=== PATIENT | male | born 1950 | race Caucasian/White ===

== ENCOUNTER 2018-02-18 20:16 | Inpatient (IN) | payer MEDICARE, OTHER ==
[~2018-02-18] VITALS: Ht 175.3 cm; Wt 82.2 kg
[~2018-02-18 20:16] MED LIST: 0.9 % SODIUM CHLORIDE 10 ML VIAL ONE; etomidate 2mg/ml inj. ONE
[2018-02-18] MEDS ORDERED: albuterol 2.5 mg/0.5ml nebule NEB ONE (21:00)
[2018-02-18] MEDS ORDERED: aspirin 81mg tab.chew PO ONE (21:05)
[2018-02-18] MEDS ORDERED: methylPREDNISolone sod succ 125mg/2ml vial IV ONE (21:05)
[2018-02-18] MEDS ORDERED: normal saline 1000ML IV soln IV ONE (21:05)
[2018-02-18] MEDS ORDERED: CefTRIAXone 2gm/D5W 50ml 50 ML IV ONE (21:05)
[2018-02-18] MEDS ORDERED: vancomycin/NS 1 GM ADD-VANTAGE 250 ML IV ONE (21:05)
[2018-02-18] MEDS ORDERED: albuterol 2.5 MG/3 ML nebule NEB ONE (21:10)
[2018-02-18 21:11] LABS: BASOPHILS % (AUTO) 0 % (0-1); EOSINOPHILS % (AUTO) 0 % (0-6); HEMATOCRIT 40.9 % (42.0-52.0); HEMOGLOBIN 13.5 g/dl (14.0-17.9); LYMPHOCYTES # (AUTO) 0.6 X10'3 (1.1-4.8); LYMPHOCYTES % (AUTO) 2.2 % (21-51); MEAN CORPUSCULAR VOLUME 84.9 FL (78-98); MEAN PLATELET VOLUME 8.5 FL (7.4-10.4); MONOCYTES # (AUTO) 1.8 X10'3 (0-0.9); MONOCYTES % (AUTO) 6.3 % (2-12); NEUTROPHILS # (AUTO) 26.3 X10'3 (1.8-7.7); NEUTROPHILS % (AUTO) 91.5 % (42-75); PLATELET COUNT 296 X10'3 (140-440); RED BLOOD COUNT 4.82 X10'6 (4.70-6.10); RED CELL DISTRIBUTION WIDTH 14.9 % (11.5-14.5)
[2018-02-18 21:16] LABS: WHITE BLOOD COUNT 28.7 X10'3 (4.5-11.0)
[2018-02-18 21:25] LABS: ABG BASE EXCESS -6.6 mmol/L (-2.0-3.0); ABG HCO3 17.5 mmol/L (22.0-26.0); ABG OXYGEN SATURATION 92.7 % (95-98); ABG PCO2 (T) 31.3 mmHg (35.0-48.0); ABG PH (T) 7.367 (7.350-7.450); ALLEN'S TEST Positive; FLOW 4 L/min; FO2Hb 91.8 % (94-100); PATIENT TEMPERATURE 37.5; TOTAL HEMOGLOBIN 13.2 G/dl (14.0-18.0)
[2018-02-18 21:34] LABS: PLATELET ESTIMATE NORMAL; TOTAL CELLS COUNTED 100
[2018-02-18 21:43] LABS: ALANINE AMINOTRANSFERASE 19 U/L (12-78); ALBUMIN 3.5 G/DL (3.4-5.0); ALBUMIN/GLOBULIN RATIO 0.8 (1.1-1.5); ALKALINE PHOSPHATASE 161 IU/L (46-116); ANION GAP 18 (8-16); ASPARTATE AMINO TRANSFERASE 17 U/L (10-37); BILIRUBIN,TOTAL 0.6 MG/DL (0.1-1.0); BLOOD UREA NITROGEN 16 MG/DL (7-18); BUN/CREATININE RATIO 17.2 (5.4-32.0); CALCIUM 9.2 MG/DL (8.5-10.1); CHLORIDE 103 MMOL/L (99-107); CREATININE 0.93 MG/DL (0.60-1.10); GLUCOSE 170 MG/DL (70-104); POTASSIUM 3.5 MMOL/L (3.5-5.1); SODIUM 138 MMOL/L (135-145); TOTAL CARBON DIOXIDE 17.1 MMOL/L (24-32); TOTAL PROTEIN 7.9 G/DL (6.4-8.2); eGFR 81 ML/MIN
[2018-02-18 21:44] LABS: MAGNESIUM 1.6 MG/DL (1.5-2.4); TROPONIN I < 0.04 NG/ML (0.0-0.05)
[2018-02-18 21:45] LABS: INR 1.1 INR; PARTIAL THROMBOPLASTIN TIME 39 SECONDS (22-32); PROTHROMBIN TIME 10.9 SECONDS (9.0-12.0)
--- NOTE | 2018-02-18 22:08 | NUR ---
PT NOT TOLERATING CPAP/BIPAP, UNABLE TO TOLERATE MASK PLACEMENT.
[2018-02-18] MEDS ORDERED: LISI10TA4 PO (22:13)
[2018-02-18] MEDS ORDERED: HYDR-4383 PO (22:13)
[2018-02-18] MEDS ORDERED: OXYB5TAB11 PO (22:13)
[2018-02-18] MEDS ORDERED: DIAZ5TAB4 PO (22:13)
[2018-02-18] MEDS ORDERED: PHEN37.54 PO (22:13)
[2018-02-18] MEDS ORDERED: ROSU20TA PO (22:13)
[2018-02-18] MEDS ORDERED: METO-539 PO (22:13)
--- NOTE | 2018-02-18 22:14 | NUR ---
ATTEMPTED TO COMPLETE MEDICATION REC, PER FAMILY MEDICATIONS AT HOME UNABLE TO GET THEM THANG MED REC COMPLETED USING CELL PHONE PHOTOS. PLEASE CONFIRM DOSAGE AND STRENGTH BEFORE USING.
[2018-02-18] MEDS ORDERED: LORazepam 2 mg/ml vial IV ONE (22:15)
[2018-02-18] MEDS ORDERED: LORazepam 2 mg/ml vial IV PRN (22:20)
[2018-02-18 22:34] LABS: CLARITY,URINE SLIGHTLY CLOUDY (Clear); COLOR,URINE YELLOW (Yellow); GLUCOSE, URINE NEGATIVE (Neg); KETONES,URINE 15 mg/dl (Neg); LEUKOCYTE ESTERASE ,URINE MODERATE (Neg); NITRITES, URINE NEGATIVE (Neg); OCCULT BLOOD,URINE LARGE (Neg); PH,URINE 6.5 (4.8-8.0); PROTEIN,URINE TRACE mg/dl (Neg)
[2018-02-18 22:39] LABS: UA COLLECTION TYPE VOIDED
[2018-02-18 22:44] LABS: BACTERIA,URINE 1+ /HPF (Neg); MUCUS STRANDS FEW /LPF (Neg); RBC,URINE 50-100 /HPF (0-2); SQUAMOUS EPITHELIAL CELL,UR FEW /LPF (FEW); WBC,URINE 20-30 /HPF (0-4)
[2018-02-18] MEDS ORDERED: etomidate 2mg/ml inj. IV ONE (22:45)
[2018-02-18] MEDS ORDERED: succinylcholine 20mg/ml inj IV ONE (22:45)
[2018-02-18] MEDS ORDERED: VECuronium br 10mg inj. IV ONE ×2 (22:45)
[2018-02-18] MEDS ORDERED: midazolam 100mg in NS 100ml 100 ML IV ONE (22:45)
[2018-02-18] MEDS ORDERED: ondansetron/PF 4mg/2ml inj IV PRN (23:05)
[2018-02-18] MEDS ORDERED: morphine 4 MG/ML inj SYRINge IV PRN ×2 (23:05)
[2018-02-18] MEDS ORDERED: acetaminophen 325mg tablet PO PRN (23:05)
[2018-02-18] MEDS: K, MAG and/or Phos replacement - Verify level? MC SCH (23:05)
[2018-02-18] MEDS ORDERED: potassium Cl 20 mEq SR tablet PO PRN ×2 (23:05)
[2018-02-18] MEDS ORDERED: potassium Cl 40MEQ/250ML bag 250 ML IV PRN (23:05)
[2018-02-18] MEDS ORDERED: ipratropium/albuterol 3ml nebule NEB PRN (23:05)
[2018-02-18] MEDS ORDERED: potassium Cl 40MEQ/250ML bag 250 ML IV SCH (23:05)
[2018-02-18] MEDS ORDERED: metoprolol tartrate 1mg/ml inj IV ONE (23:05)
[2018-02-19] VITALS (24 sets, daily range): BP systolic 52–131; BP diastolic 28–72
[2018-02-19 00:11] LABS: ABG BASE EXCESS -12.1 mmol/L (-2.0-3.0); ABG HCO3 19.4 mmol/L (22.0-26.0); ABG OXYGEN SATURATION 93.5 % (95-98); ABG PCO2 (T) 73.8 mmHg (35.0-48.0); ABG PH (T) 7.042 (7.350-7.450); ALLEN'S TEST Positive; FCOHb 0.6 % (0.5-1.5); FMetHb 0.2 % (0.3-1.12); FO2Hb 92.8 % (94-100); PATIENT TEMPERATURE 37.6; PEEP 5 cm H2O; RESPIRATORY RATE 16 b/min; RESPIRATORY RATE (OBSERVED) 16 b/min; TIDAL VOLUME 500 mL; TOTAL HEMOGLOBIN 13.8 G/dl (14.0-18.0)
--- NOTE | 2018-02-19 00:30 | NUR ---
Patient in room ICU 2043. I have received report from Myles PRADO and had the opportunity to ask questions and assume patient care.
[2018-02-19] MEDS ORDERED: NORepinephrine 8mg/ 250ml NS 250 ML IV ONE (01:01)
[2018-02-19 01:11] LABS: OXYGEN SATURATION (MIXED VEN) 75.3 % (60-80); PO2 MIXED VENOUS (TEMP COR) 49.6 mmHg (35-46)
[2018-02-19] MEDS: NORepinephrine 8mg/ 250ml NS 250 ML IV SCH (01:29)
--- NOTE | 2018-02-19 01:30 | NUR ---
Patient hypotensive with BP systolic of 53/28. New orders received. Will continue to monitor patient.
[2018-02-19] MEDS ORDERED: normal saline 1000ml 1,000 ML IVB ONE (01:36)
[2018-02-19] MEDS ORDERED: hydrocortisone sod succ/PF 100mg/2ml inj. IV ONE (01:40)
[2018-02-19] MEDS: normal saline 1000ml 1,000 ML IV SCH ×3 (01:47→22:02)
[2018-02-19 03:24] LABS: BASOPHILS % (AUTO) 0 % (0-1); EOSINOPHILS % (AUTO) 0 % (0-6); HEMATOCRIT 36.5 % (42.0-52.0); LYMPHOCYTES # (AUTO) 0.5 X10'3 (1.1-4.8); LYMPHOCYTES % (AUTO) 1.3 % (21-51); MEAN CORPUSCULAR HEMOGLOBIN 28.1 PG (27.0-31.0); MEAN CORPUSCULAR HGB CONC 32.8 % (33.0-36.5); MEAN CORPUSCULAR VOLUME 85.5 FL (78-98); MEAN PLATELET VOLUME 8.7 FL (7.4-10.4); MONOCYTES # (AUTO) 1.5 X10'3 (0-0.9); MONOCYTES % (AUTO) 4.3 % (2-12); NEUTROPHILS # (AUTO) 33.7 X10'3 (1.8-7.7); NEUTROPHILS % (AUTO) 94.4 % (42-75); PLATELET COUNT 302 X10'3 (140-440); RED BLOOD COUNT 4.27 X10'6 (4.70-6.10); RED CELL DISTRIBUTION WIDTH 14.9 % (11.5-14.5)
[2018-02-19 03:31] LABS: WHITE BLOOD COUNT 35.7 X10'3 (4.5-11.0)
[2018-02-19 03:41] LABS: ABG BASE EXCESS -9.6 mmol/L (-2.0-3.0); ABG HCO3 17.8 mmol/L (22.0-26.0); ABG OXYGEN SATURATION 98.3 % (95-98); ABG PCO2 (T) 44.3 mmHg (35.0-48.0); ABG PH (T) 7.221 (7.350-7.450); ALLEN'S TEST Positive; FMetHb 0.2 % (0.3-1.12); FO2Hb 98.1 % (94-100); MINUTE VOLUME 15 L/min; PEEP 5 cm H2O; RESPIRATORY RATE 22 b/min; RESPIRATORY RATE (OBSERVED) 28 b/min; TIDAL VOLUME 500 mL; TOTAL HEMOGLOBIN 13.1 G/dl (14.0-18.0)
[2018-02-19 03:44] LABS: ALANINE AMINOTRANSFERASE 14 U/L (12-78); ALBUMIN 2.5 G/DL (3.4-5.0); ALBUMIN/GLOBULIN RATIO 0.7 (1.1-1.5); ALKALINE PHOSPHATASE 119 IU/L (46-116); ANION GAP 15 (8-16); ASPARTATE AMINO TRANSFERASE 17 U/L (10-37); BILIRUBIN,TOTAL 0.6 MG/DL (0.1-1.0); BLOOD UREA NITROGEN 17 MG/DL (7-18); BUN/CREATININE RATIO 16.2 (5.4-32.0); CALCIUM 7.3 MG/DL (8.5-10.1); CHLORIDE 109 MMOL/L (99-107); CREATININE 1.05 MG/DL (0.60-1.10); GLUCOSE 249 MG/DL (70-104); POTASSIUM 3.8 MMOL/L (3.5-5.1); SODIUM 143 MMOL/L (135-145); TOTAL CARBON DIOXIDE 18.9 MMOL/L (24-32); TOTAL PROTEIN 6.2 G/DL (6.4-8.2); eGFR 70 ML/MIN
[2018-02-19 03:45] LABS: MAGNESIUM 1.4 MG/DL (1.5-2.4); PHOSPHORUS 3.7 MG/DL (2.3-4.5)
[2018-02-19] MEDS ORDERED: dextrose 50%-water 50ml dispensing syringe IV PRN (04:00)
[2018-02-19] MEDS ORDERED: insulin Lispro (HumaLOG) vial - multi-dose SQ SCH (04:00)
[2018-02-19 04:20] LABS: PLATELET ESTIMATE NORMAL; TOTAL CELLS COUNTED 100
[2018-02-19] MEDS: vancomycin/NS 1 GM ADD-VANTAGE 250 ML IV SCH ×2 (05:24→17:41)
--- NOTE | 2018-02-19 06:30 | NUR ---
Patient in room ICU 2043. I have received report from Danette Rodney RN and had the opportunity to ask questions and assume patient care.
--- NOTE | 2018-02-19 06:32 | NUR ---
Problems reprioritized. Patient report given, questions answered & plan of care reviewed with Altagracia PRADO.
[2018-02-19] MEDS: K, MAG and/or Phos replacement - Verify level? MC SCH (06:55)
--- NOTE | 2018-02-19 06:58 | NUR ---
Eri contacted ICU, updated regarding amount of levophed at 2mcg. Informed him that Calcium level and magnesium are low on morning labs. One time replacement orders received.
[2018-02-19] MEDS ORDERED: magnesium 4gm in 100ml NS 100 ML IV ONE (07:00)
[2018-02-19] MEDS ORDERED: magnesium 2GM in 50ml NS 50 ML IV ONE (07:00)
[2018-02-19] MEDS ORDERED: calcium chloride 100 MG/1 ML inj IV ONE (07:00)
[2018-02-19] MEDS ORDERED: calcium chloride inj. 1,000 MG in normal saline 100ml IV soln 90 ML IV ONE (07:05)
[2018-02-19] MEDS: pantoprazole 40 MG vial IV SCH (07:56)
[2018-02-19] MEDS: enoxaparin 40mg/0.4ml syringe SUBCUT SCH (07:59)
[2018-02-19] MEDS ORDERED: cefepime 2g/NS 100ml ADVANTAGE 100 ML IV SCH (08:00)
[2018-02-19] MEDS: insulin regular, human vial - multi-dose SQ SCH ×3 (08:05→22:00)
[2018-02-19] MEDS ORDERED: sodium phosphate inj. 30 MMOL in dextrose 5%-water 250 ML IV PRN (11:05)
[2018-02-19] MEDS ORDERED: sodium phosphate inj. 15 MMOL in dextrose 5%-water 150 ML IV PRN (11:05)
[2018-02-19] MEDS ORDERED: magnesium 2GM in 50ml NS 50 ML IV PRN (11:05)
[2018-02-19] MEDS ORDERED: magnesium 4gm in 100ml NS 100 ML IV PRN (11:05)
[2018-02-19] MEDS ORDERED: Neutra Phos packet PO PRN (11:05)
--- NOTE | 2018-02-19 11:43 | NUR ---
TF consult: Pt admitted with PNA, acute resp failure, and sepsis and has been intubated. Recommendations below. Will continue to follow. Recommendations: 1) Continuous TF via OG tube with Vital AF with goal rate of 60 mL/hr to provide: total volume of 1440 mL/day, 1728 kcal, 97 g protein, 1100 water 2) 150 mL water flush q 6 hrs per MD 3) Prealbumin q / 4) Daily wt Addendum: 02/19/18 at [address] Amended: Links added.
[2018-02-19] MEDS: levoFLOXACIN-Levaquin 750MG/D5 150 ML IV SCH (12:38)
[2018-02-19] MEDS: methylnaltrexone br 12mg/0.6ml inj***SubQ only SQ SCH (12:38)
[2018-02-19 13:24] LABS: HEMOGLOBIN A1C 6.8 % (4.5-6.2)
[2018-02-19] MEDS: metoclopramide 5 mg/ml inj IV SCH ×2 (14:04→20:48)
[2018-02-19 15:56] LABS: MAGNESIUM 2.8 MG/DL (1.5-2.4); PHOSPHORUS 1.9 MG/DL (2.3-4.5); POTASSIUM 3.7 MMOL/L (3.5-5.1); PREALBUMIN 13.3 MG/DL (19-36); TROPONIN I 0.24 NG/ML (0.0-0.05)
[2018-02-19] MEDS: midazolam 100mg in NS 100ml 100 ML IV PRN (16:03)
[2018-02-19] MEDS: FENTANYL-0.9 % NACL/PF 100 ML IV PRN (17:27)
[2018-02-19 18:09] LABS: CALCIUM 8.2 MG/DL (8.5-10.1)
--- NOTE | 2018-02-19 18:33 | NUR ---
Problems reprioritized. Patient report given, questions answered & plan of care reviewed with Raudel Bernal RN.
--- NOTE | 2018-02-19 18:37 | NUR ---
Patient in room ICU 2043. I have received report from Altagracia PRADO and had the opportunity to ask questions and assume patient care.
--- NOTE | 2018-02-19 20:00 | NUR ---
levophed weaned off at this time. continue to monitor.
--- NOTE | 2018-02-19 22:00 | NUR ---
tube feed rate increased from 20 up to 40 per protocol. 8 hrs since start time. tolerating well. continue to monitor.
[2018-02-19] MEDS: insulin glargine (Lantus) pen - multi-dose SQ SCH (22:01)
[2018-02-20] VITALS (24 sets, daily range): BP systolic 80–198; BP diastolic 43–98
--- NOTE | 2018-02-20 00:21 | NUR ---
levo restarted at this time. continue to monitor.
[2018-02-20] MEDS: mineral oil/petrolatum ophthal oint EACHEYE SCH ×4 (02:26→19:26)
[2018-02-20] MEDS: metoclopramide 5 mg/ml inj IV SCH ×4 (02:26→20:52)
[2018-02-20] MEDS: insulin regular, human vial - multi-dose SQ SCH ×4 (02:29→20:55)
[2018-02-20 02:40] LABS: BASOPHILS % (AUTO) 0.1 % (0-1); EOSINOPHILS % (AUTO) 0 % (0-6); HEMATOCRIT 29.8 % (42.0-52.0); HEMOGLOBIN 9.9 g/dl (14.0-17.9); LYMPHOCYTES # (AUTO) 0.9 X10'3 (1.1-4.8); LYMPHOCYTES % (AUTO) 4.8 % (21-51); MEAN CORPUSCULAR HGB CONC 33.1 % (33.0-36.5); MEAN CORPUSCULAR VOLUME 84.4 FL (78-98); MEAN PLATELET VOLUME 8.1 FL (7.4-10.4); MONOCYTES % (AUTO) 5.6 % (2-12); NEUTROPHILS # (AUTO) 16.7 X10'3 (1.8-7.7); NEUTROPHILS % (AUTO) 89.5 % (42-75); PLATELET COUNT 207 X10'3 (140-440); RED BLOOD COUNT 3.53 X10'6 (4.70-6.10); RED CELL DISTRIBUTION WIDTH 14.8 % (11.5-14.5); WHITE BLOOD COUNT 18.6 X10'3 (4.5-11.0)
[2018-02-20 02:45] LABS: ABG BASE EXCESS -2.9 mmol/L (-2.0-3.0); ABG HCO3 21.4 mmol/L (22.0-26.0); ABG OXYGEN SATURATION 98.3 % (95-98); ABG PCO2 (T) 35.8 mmHg (35.0-48.0); ABG PH (T) 7.397 (7.350-7.450); ABG PO2 (T) 127.2 mmHg (83-108); ALLEN'S TEST Positive; FCOHb 0.3 % (0.5-1.5); FMetHb 0.3 % (0.3-1.12); FO2Hb 97.7 % (94-100); MINUTE VOLUME 15 L/min; PATIENT TEMPERATURE 37.3; PEEP 5 cm H2O; RESPIRATORY RATE 22 b/min; RESPIRATORY RATE (OBSERVED) 28 b/min; TIDAL VOLUME 500 mL; TOTAL HEMOGLOBIN 10.6 G/dl (14.0-18.0)
[2018-02-20 02:53] LABS: ALANINE AMINOTRANSFERASE 19 U/L (12-78); ALBUMIN 2.2 G/DL (3.4-5.0); ALBUMIN/GLOBULIN RATIO 0.6 (1.1-1.5); ALKALINE PHOSPHATASE 87 IU/L (46-116); ANION GAP 9 (8-16); ASPARTATE AMINO TRANSFERASE 32 U/L (10-37); BILIRUBIN,TOTAL 0.4 MG/DL (0.1-1.0); BLOOD UREA NITROGEN 20 MG/DL (7-18); BUN/CREATININE RATIO 23.8 (5.4-32.0); CALCIUM 8.3 MG/DL (8.5-10.1); CHLORIDE 109 MMOL/L (99-107); CREATININE 0.84 MG/DL (0.60-1.10); GLUCOSE 196 MG/DL (70-104); MAGNESIUM 2.1 MG/DL (1.5-2.4); PHOSPHORUS 1.6 MG/DL (2.3-4.5); POTASSIUM 3.3 MMOL/L (3.5-5.1); SODIUM 142 MMOL/L (135-145); TOTAL CARBON DIOXIDE 24.3 MMOL/L (24-32); TOTAL PROTEIN 5.8 G/DL (6.4-8.2); eGFR > 90 ML/MIN
[2018-02-20] MEDS: vancomycin/NS 1 GM ADD-VANTAGE 250 ML IV SCH ×2 (06:01→19:26)
--- NOTE | 2018-02-20 06:41 | NUR ---
Problems reprioritized. Patient report given, questions answered & plan of care reviewed with Majo PRADO and Rina PRADO.
[2018-02-20] MEDS: K, MAG and/or Phos replacement - Verify level? MC SCH (08:00)
[2018-02-20] MEDS: levoFLOXACIN-Levaquin 750MG/D5 150 ML IV SCH (08:29)
[2018-02-20] MEDS: enoxaparin 40mg/0.4ml syringe SUBCUT SCH (08:29)
[2018-02-20] MEDS: pantoprazole 40 MG vial IV SCH (08:29)
[2018-02-20] MEDS ORDERED: diltiazem 5mg/ml 5ml inj. IV ONE (10:55)
[2018-02-20] MEDS: [UNRECOGNIZED DRUG - OTHER] IV SCH (11:30)
[2018-02-20 12:40] LABS: ABG BASE EXCESS -8.5 mmol/L (-2.0-3.0); ABG HCO3 26.2 mmol/L (22.0-26.0); ABG OXYGEN SATURATION 87.3 % (95-98); ABG PCO2 (T) 117.2 mmHg (35.0-48.0); ABG PH (T) 6.963 (7.350-7.450); FCOHb 0.4 % (0.5-1.5); FMetHb 0.3 % (0.3-1.12); FO2Hb 86.7 % (94-100); PATIENT TEMPERATURE 36.5; TOTAL HEMOGLOBIN 13.1 G/dl (14.0-18.0)
[2018-02-20] MEDS: methylPREDNISolone sod succ 125mg/2ml vial IV SCH ×2 (14:33→20:51)
[2018-02-20] MEDS: normal saline 1000ml 1,000 ML IV SCH (15:33)
[2018-02-20 15:35] LABS: ABG BASE EXCESS -8.9 mmol/L (-2.0-3.0); ABG HCO3 24.2 mmol/L (22.0-26.0); ABG OXYGEN SATURATION 90.4 % (95-98); ABG PCO2 (T) 93.1 mmHg (35.0-48.0); ABG PH (T) 7.024 (7.350-7.450); ABG PO2 (T) 65.7 mmHg (83-108); FCOHb 0.3 % (0.5-1.5); FMetHb 0.1 % (0.3-1.12); PATIENT TEMPERATURE 35.7
[2018-02-20] MEDS: ipratropium/albuterol 3ml nebule NEB SCH ×3 (15:49→23:31)
[2018-02-20] MEDS ORDERED: VANCOMYCIN LEVEL IV ONE (17:30)
--- NOTE | 2018-02-20 18:30 | NUR ---
Patient in room ICU 2043. I have received report from Majo PRADO and had the opportunity to ask questions and assume patient care.
[2018-02-20] MEDS: FENTANYL-0.9 % NACL/PF 100 ML IV PRN (18:36)
[2018-02-20] MEDS: NORepinephrine 8mg/ 250ml NS 250 ML IV SCH (18:36)
[2018-02-20] MEDS: midazolam 100mg in NS 100ml 100 ML IV PRN (18:37)
[2018-02-20 19:21] LABS: ABG OXYGEN SATURATION 96.3 % (95-98); ABG PCO2 (T) 61.9 mmHg (35.0-48.0); ABG PH (T) 7.202 (7.350-7.450); ABG PO2 (T) 77.7 mmHg (83-108); ALLEN'S TEST Positive; FCOHb 0.1 % (0.5-1.5); FMetHb 0.1 % (0.3-1.12); FO2Hb 96.1 % (94-100); MINUTE VOLUME 9 L/min; PATIENT TEMPERATURE 36.1; PEEP 5 cm H2O; RESPIRATORY RATE 16 b/min; RESPIRATORY RATE (OBSERVED) 19 b/min; TIDAL VOLUME 450 mL; TOTAL HEMOGLOBIN 11.9 G/dl (14.0-18.0)
[2018-02-20] MEDS: insulin glargine (Lantus) pen - multi-dose SQ SCH (20:54)
--- NOTE | 2018-02-20 21:13 | NUR ---
OG tube replaced at 2029. February CONTINUOUS IMPROVEMENT MANAGER was present and gave permission to replace and restart TF orders. TF started at 2029. restarted at 30ml/hr - half of goal rate. i will reassess residuals in 4 hrs and advanmce back to goal if residual remains adequate. continue to monitor.
[2018-02-21] VITALS (24 sets, daily range): BP systolic 85–135; BP diastolic 49–71
[2018-02-21] MEDS: methylPREDNISolone sod succ 125mg/2ml vial IV SCH ×4 (01:56→20:32)
[2018-02-21] MEDS: metoclopramide 5 mg/ml inj IV SCH ×4 (01:56→20:32)
[2018-02-21] MEDS: mineral oil/petrolatum ophthal oint EACHEYE SCH ×4 (01:56→20:31)
[2018-02-21] MEDS: insulin regular, human vial - multi-dose SQ SCH ×4 (02:03→22:07)
[2018-02-21 02:52] LABS: BASOPHILS % (AUTO) 0.1 % (0-1); EOSINOPHILS % (AUTO) 0 % (0-6); HEMATOCRIT 32.6 % (42.0-52.0); HEMOGLOBIN 10.9 g/dl (14.0-17.9); LYMPHOCYTES # (AUTO) 0.3 X10'3 (1.1-4.8); LYMPHOCYTES % (AUTO) 1.7 % (21-51); MEAN CORPUSCULAR HEMOGLOBIN 28.8 PG (27.0-31.0); MEAN CORPUSCULAR HGB CONC 33.5 % (33.0-36.5); MEAN PLATELET VOLUME 8.4 FL (7.4-10.4); MONOCYTES # (AUTO) 0.2 X10'3 (0-0.9); MONOCYTES % (AUTO) 1.5 % (2-12); NEUTROPHILS % (AUTO) 96.7 % (42-75); PLATELET COUNT 199 X10'3 (140-440); RED BLOOD COUNT 3.79 X10'6 (4.70-6.10); RED CELL DISTRIBUTION WIDTH 14.3 % (11.5-14.5); WHITE BLOOD COUNT 16.5 X10'3 (4.5-11.0)
[2018-02-21 03:01] LABS: ALANINE AMINOTRANSFERASE 32 U/L (12-78); ALBUMIN 2.4 G/DL (3.4-5.0); ALBUMIN/GLOBULIN RATIO 0.6 (1.1-1.5); ALKALINE PHOSPHATASE 118 IU/L (46-116); ANION GAP 10 (8-16); ASPARTATE AMINO TRANSFERASE 28 U/L (10-37); BILIRUBIN,TOTAL 0.5 MG/DL (0.1-1.0); BLOOD UREA NITROGEN 27 MG/DL (7-18); CALCIUM 8.5 MG/DL (8.5-10.1); CHLORIDE 109 MMOL/L (99-107); CREATININE 1.08 MG/DL (0.60-1.10); GLUCOSE 185 MG/DL (70-104); MAGNESIUM 2.1 MG/DL (1.5-2.4); PHOSPHORUS 3.1 MG/DL (2.3-4.5); POTASSIUM 4.7 MMOL/L (3.5-5.1); SODIUM 143 MMOL/L (135-145); TOTAL CARBON DIOXIDE 23.7 MMOL/L (24-32); TOTAL PROTEIN 6.3 G/DL (6.4-8.2); eGFR 68 ML/MIN
[2018-02-21] MEDS: ipratropium/albuterol 3ml nebule NEB SCH ×6 (03:03→23:00)
[2018-02-21 03:55] LABS: ABG BASE EXCESS -6.3 mmol/L (-2.0-3.0); ABG HCO3 21.8 mmol/L (22.0-26.0); ABG OXYGEN SATURATION 96.1 % (95-98); ABG PCO2 (T) 55.2 mmHg (35.0-48.0); ABG PH (T) 7.214 (7.350-7.450); ABG PO2 (T) 83.6 mmHg (83-108); ALLEN'S TEST Positive; FCOHb 0.2 % (0.5-1.5); FO2Hb 95.9 % (94-100); MINUTE VOLUME 8 L/min; PATIENT TEMPERATURE 36.8; PEEP 5 cm H2O; RESPIRATORY RATE 16 b/min; RESPIRATORY RATE (OBSERVED) 17 b/min; TIDAL VOLUME 450 mL; TOTAL HEMOGLOBIN 11.7 G/dl (14.0-18.0)
[2018-02-21] MEDS: midazolam 100mg in NS 100ml 100 ML IV PRN ×2 (04:31→15:01)
[2018-02-21] MEDS: vancomycin/NS 1 GM ADD-VANTAGE 250 ML IV SCH (05:34)
[2018-02-21] MEDS: normal saline 1000ml 1,000 ML IV SCH ×3 (05:34→23:20)
[2018-02-21] MEDS: FENTANYL-0.9 % NACL/PF 100 ML IV PRN ×2 (05:34→16:43)
--- NOTE | 2018-02-21 06:38 | NUR ---
Problems reprioritized. Patient report given, questions answered & plan of care reviewed with Giovany PRADO.
[2018-02-21] MEDS: K, MAG and/or Phos replacement - Verify level? MC SCH (08:00)
[2018-02-21] MEDS ORDERED: methylnaltrexone br 12mg/0.6ml inj***SubQ only SQ SCH (08:00)
[2018-02-21] MEDS: methylnaltrexone br 12mg/0.6ml inj***SubQ only SQ SCH (08:30)
[2018-02-21] MEDS: pantoprazole 40 MG vial IV SCH (08:30)
[2018-02-21] MEDS: enoxaparin 40mg/0.4ml syringe SUBCUT SCH (08:31)
[2018-02-21] MEDS: levoFLOXACIN-Levaquin 750MG/D5 150 ML IV SCH (08:33)
--- NOTE | 2018-02-21 11:15 | NUR ---
Dr. Means at bedside; updated on patient condition and notified of patient's HR in the 120s; per Dr. Means, no new orders. Family updated at bedside and Dr. Means looking into performing a tracheostomy tomorrow; family agrees. Will continue to monitor.
[2018-02-21] MEDS: [UNRECOGNIZED DRUG - OTHER] IV SCH (12:00)
--- NOTE | 2018-02-21 16:13 | NUR ---
Jacquelyn MYLES notified about med-rec; she reports she will work on it.
[2018-02-21] MEDS: vancomycin inj 1,250 MG in normal saline 250ml IV soln 250 ML IV SCH (16:44)
--- NOTE | 2018-02-21 17:22 | NUR ---
OG tube advanced further into stomach; auscultated for positive placement.
--- NOTE | 2018-02-21 18:28 | NUR ---
Orientee documentation: I have reviewed and agree with all interventions, assessments performed and documented by Adithya PRADO.
--- NOTE | 2018-02-21 18:28 | NUR ---
Problems reprioritized. Patient report given, questions answered & plan of care reviewed with Petr PRADO.
[2018-02-21] MEDS: lactobacillus rhamnosus 10,000 MMU CELLS/CAPSULE PO SCH (20:33)
[2018-02-21] MEDS: insulin glargine (Lantus) pen - multi-dose SQ SCH (21:58)
[2018-02-22] VITALS (24 sets, daily range): BP systolic 91–127; BP diastolic 52–87
[2018-02-22] MEDS: midazolam 100mg in NS 100ml 100 ML IV PRN ×3 (00:46→20:24)
[2018-02-22] MEDS: methylPREDNISolone sod succ 125mg/2ml vial IV SCH ×4 (02:21→19:43)
[2018-02-22] MEDS: mineral oil/petrolatum ophthal oint EACHEYE SCH ×4 (02:21→19:44)
[2018-02-22] MEDS: metoclopramide 5 mg/ml inj IV SCH ×4 (02:21→19:44)
[2018-02-22 02:49] LABS: BASOPHILS % (AUTO) 0.1 % (0-1); EOSINOPHILS % (AUTO) 0.1 % (0-6); HEMATOCRIT 29.2 % (42.0-52.0); HEMOGLOBIN 9.7 g/dl (14.0-17.9); LYMPHOCYTES # (AUTO) 0.3 X10'3 (1.1-4.8); LYMPHOCYTES % (AUTO) 2.2 % (21-51); MEAN CORPUSCULAR HEMOGLOBIN 28.7 PG (27.0-31.0); MEAN CORPUSCULAR HGB CONC 33.3 % (33.0-36.5); MEAN CORPUSCULAR VOLUME 86.1 FL (78-98); MEAN PLATELET VOLUME 8.1 FL (7.4-10.4); MONOCYTES # (AUTO) 0.5 X10'3 (0-0.9); MONOCYTES % (AUTO) 3.5 % (2-12); NEUTROPHILS # (AUTO) 14.4 X10'3 (1.8-7.7); NEUTROPHILS % (AUTO) 94.1 % (42-75); PLATELET COUNT 193 X10'3 (140-440); RED BLOOD COUNT 3.39 X10'6 (4.70-6.10); RED CELL DISTRIBUTION WIDTH 14.2 % (11.5-14.5); WHITE BLOOD COUNT 15.2 X10'3 (4.5-11.0)
[2018-02-22 03:02] LABS: ALANINE AMINOTRANSFERASE 26 U/L (12-78); ALBUMIN 2.1 G/DL (3.4-5.0); ALBUMIN/GLOBULIN RATIO 0.6 (1.1-1.5); ALKALINE PHOSPHATASE 114 IU/L (46-116); ANION GAP 10 (8-16); ASPARTATE AMINO TRANSFERASE 19 U/L (10-37); BILIRUBIN,TOTAL 0.5 MG/DL (0.1-1.0); BLOOD UREA NITROGEN 39 MG/DL (7-18); BUN/CREATININE RATIO 29.5 (5.4-32.0); CALCIUM 8.2 MG/DL (8.5-10.1); CHLORIDE 110 MMOL/L (99-107); CREATININE 1.32 MG/DL (0.60-1.10); GLUCOSE 183 MG/DL (70-104); MAGNESIUM 2.3 MG/DL (1.5-2.4); PHOSPHORUS 2.2 MG/DL (2.3-4.5); POTASSIUM 4.1 MMOL/L (3.5-5.1); SODIUM 143 MMOL/L (135-145); TOTAL CARBON DIOXIDE 23.2 MMOL/L (24-32); TOTAL PROTEIN 5.7 G/DL (6.4-8.2); eGFR 54 ML/MIN
[2018-02-22] MEDS: ipratropium/albuterol 3ml nebule NEB SCH ×6 (03:04→23:10)
[2018-02-22] MEDS: insulin regular, human vial - multi-dose SQ SCH ×3 (03:10→20:06)
[2018-02-22 03:36] LABS: ABG BASE EXCESS -7.1 mmol/L (-2.0-3.0); ABG HCO3 19.9 mmol/L (22.0-26.0); ABG OXYGEN SATURATION 96.4 % (95-98); ABG PCO2 (T) 46.4 mmHg (35.0-48.0); ABG PO2 (T) 90.3 mmHg (83-108); ALLEN'S TEST Positive; FCOHb 0.3 % (0.5-1.5); FMetHb 0.3 % (0.3-1.12); FO2Hb 95.8 % (94-100); MINUTE VOLUME 10 L/min; PATIENT TEMPERATURE 37.2; PEEP 5 cm H2O; RESPIRATORY RATE 20 b/min; RESPIRATORY RATE (OBSERVED) 20 b/min; TIDAL VOLUME 450 mL; TOTAL HEMOGLOBIN 10.9 G/dl (14.0-18.0)
[2018-02-22] MEDS: vancomycin inj 1,250 MG in normal saline 250ml IV soln 250 ML IV SCH ×2 (05:37→17:35)
[2018-02-22] MEDS: FENTANYL-0.9 % NACL/PF 100 ML IV PRN ×2 (06:14→15:55)
--- NOTE | 2018-02-22 06:20 | NUR ---
Patient in room ICU 2043. I have received report from JOHAN Humphreys and had the opportunity to ask questions and assume patient care.
--- NOTE | 2018-02-22 07:15 | NUR ---
Problems reprioritized. Patient report given, questions answered & plan of care reviewed with JOHAN Church.
--- NOTE | 2018-02-22 07:15 | NUR ---
Patient in room ICU 2043. I have received report from JOHAN Pardo and had the opportunity to ask questions and assume patient care.
[2018-02-22] MEDS: levoFLOXACIN-Levaquin 750MG/D5 150 ML IV SCH (07:45)
[2018-02-22] MEDS: enoxaparin 40mg/0.4ml syringe SUBCUT SCH (07:46)
[2018-02-22] MEDS: atorvastatin 10mg tablet PO SCH (07:46)
[2018-02-22] MEDS: pantoprazole 40 MG vial IV SCH (07:46)
[2018-02-22] MEDS: lactobacillus rhamnosus 10,000 MMU CELLS/CAPSULE PO SCH ×2 (07:47→19:45)
[2018-02-22] MEDS: K, MAG and/or Phos replacement - Verify level? MC SCH (08:00)
--- NOTE | 2018-02-22 11:52 | NUR ---
reassessment: Pt intubated tolerating TF at goal residuals <250ml. RD d/w MD to advance goal rate to 70ml/hr w/ Vital AF in order to optimally meet protein needs; MD coronado and RN to adjust goal rate in order. No BM yet on relistor and reglan. Will monitor for additional bowel care needs and feeding tolerance. Recommendations: 1) Continuous TF via OG tube with Vital AF with goal rate of 70 mL/hr to provide: total volume of 1680 mL/day, 2016 kcal, 126 g protein, 1361ml water 2) 150 mL water flush q 6 hrs per MD 3) Prealbumin q / 4) Daily wt 5) routine bowel care Addendum: 02/22/18 at [address] Amended: Links added.
[2018-02-22] MEDS: [UNRECOGNIZED DRUG - OTHER] IV SCH (13:00)
[2018-02-22] MEDS: normal saline 1000ml 1,000 ML IV SCH (16:22)
--- NOTE | 2018-02-22 18:30 | NUR ---
Patient in room ICU 2043. I have received report from JOHAN Childs and had the opportunity to ask questions and assume patient care.
[2018-02-22] MEDS: insulin glargine (Lantus) pen - multi-dose SQ SCH (20:07)
[2018-02-23] VITALS (24 sets, daily range): BP systolic 88–143; BP diastolic 47–67
[2018-02-23] MEDS: NORepinephrine 8mg/ 250ml NS 250 ML IV SCH (01:25)
[2018-02-23] MEDS: methylPREDNISolone sod succ 125mg/2ml vial IV SCH ×4 (01:33→19:57)
[2018-02-23] MEDS: metoclopramide 5 mg/ml inj IV SCH ×4 (01:33→19:57)
[2018-02-23] MEDS: mineral oil/petrolatum ophthal oint EACHEYE SCH ×4 (01:33→19:59)
[2018-02-23] MEDS: FENTANYL-0.9 % NACL/PF 100 ML IV PRN ×3 (01:38→21:48)
--- NOTE | 2018-02-23 02:00 | NUR ---
Pt blood glucose dropped to 95 and the pt is having high residuals, therefore tube feeds have been off occasionally off and decreased per protocol. Held 0200 dose of Insulin for fear of dropping blood glucose further.
[2018-02-23] MEDS: ipratropium/albuterol 3ml nebule NEB SCH ×6 (03:25→23:16)
[2018-02-23 03:36] LABS: ABG BASE EXCESS -1.5 mmol/L (-2.0-3.0); ABG OXYGEN SATURATION 97.6 % (95-98); ABG PCO2 (T) 50.6 mmHg (35.0-48.0); ABG PH (T) 7.312 (7.350-7.450); ABG PO2 (T) 107.5 mmHg (83-108); ALLEN'S TEST Positive; FCOHb 0.3 % (0.5-1.5); FMetHb 0.1 % (0.3-1.12); FO2Hb 97.2 % (94-100); MINUTE VOLUME 10 L/min; PATIENT TEMPERATURE 36.8; PEEP 5 cm H2O; RESPIRATORY RATE 22 b/min; RESPIRATORY RATE (OBSERVED) 22 b/min; TIDAL VOLUME 450 mL; TOTAL HEMOGLOBIN 10.3 G/dl (14.0-18.0)
[2018-02-23 04:01] LABS: ALANINE AMINOTRANSFERASE 31 U/L (12-78); ALBUMIN 2.1 G/DL (3.4-5.0); ALBUMIN/GLOBULIN RATIO 0.6 (1.1-1.5); ALKALINE PHOSPHATASE 99 IU/L (46-116); ANION GAP 7 (8-16); ASPARTATE AMINO TRANSFERASE 23 U/L (10-37); BILIRUBIN,TOTAL 0.4 MG/DL (0.1-1.0); BLOOD UREA NITROGEN 53 MG/DL (7-18); CALCIUM 8.5 MG/DL (8.5-10.1); CHLORIDE 113 MMOL/L (99-107); CREATININE 1.36 MG/DL (0.60-1.10); GLUCOSE 129 MG/DL (70-104); MAGNESIUM 2.4 MG/DL (1.5-2.4); PHOSPHORUS 2.4 MG/DL (2.3-4.5); POTASSIUM 4.2 MMOL/L (3.5-5.1); PREALBUMIN 16.6 MG/DL (19-36); SODIUM 145 MMOL/L (135-145); TOTAL CARBON DIOXIDE 24.7 MMOL/L (24-32); TOTAL PROTEIN 5.4 G/DL (6.4-8.2); eGFR 52 ML/MIN
[2018-02-23 04:04] LABS: BASOPHILS % (AUTO) 0 % (0-1); EOSINOPHILS % (AUTO) 0 % (0-6); HEMATOCRIT 28.1 % (42.0-52.0); HEMOGLOBIN 9.3 g/dl (14.0-17.9); LYMPHOCYTES # (AUTO) 0.3 X10'3 (1.1-4.8); LYMPHOCYTES % (AUTO) 2.3 % (21-51); MEAN CORPUSCULAR HEMOGLOBIN 28.5 PG (27.0-31.0); MEAN CORPUSCULAR HGB CONC 33.2 % (33.0-36.5); MEAN PLATELET VOLUME 8.1 FL (7.4-10.4); MONOCYTES # (AUTO) 0.6 X10'3 (0-0.9); MONOCYTES % (AUTO) 3.9 % (2-12); NEUTROPHILS # (AUTO) 13.6 X10'3 (1.8-7.7); NEUTROPHILS % (AUTO) 93.8 % (42-75); PLATELET COUNT 174 X10'3 (140-440); RED BLOOD COUNT 3.27 X10'6 (4.70-6.10); RED CELL DISTRIBUTION WIDTH 14.4 % (11.5-14.5); WHITE BLOOD COUNT 14.5 X10'3 (4.5-11.0)
[2018-02-23 04:15] LABS: VANCOMYCIN,TROUGH 30.4 UG/ML (6.0-14.0)
[2018-02-23] MEDS ORDERED: VANCOMYCIN LEVEL IV ONE ×2 (04:30→14:00)
--- NOTE | 2018-02-23 04:32 | NUR ---
Vanco trough 30.4. Message sent to Keara in the pharmacy that 0500 dose will be held awaiting further dosing instructions.
--- NOTE | 2018-02-23 04:34 | NUR ---
Pharmacy confirmed 0500 Vanco dose to be held.
[2018-02-23] MEDS: midazolam 100mg in NS 100ml 100 ML IV PRN ×2 (05:30→14:42)
--- NOTE | 2018-02-23 06:15 | NUR ---
Problems reprioritized. Patient report given, questions answered & plan of care reviewed with JOHAN Childs.
--- NOTE | 2018-02-23 06:20 | NUR ---
Patient in room ICU 2043. I have received report from JOHAN Naranjo and had the opportunity to ask questions and assume patient care.
[2018-02-23] MEDS: lactobacillus rhamnosus 10,000 MMU CELLS/CAPSULE PO SCH ×2 (07:20→19:57)
[2018-02-23] MEDS: atorvastatin 10mg tablet PO SCH (07:20)
[2018-02-23] MEDS: levoFLOXACIN-Levaquin 750MG/D5 150 ML IV SCH (07:20)
[2018-02-23] MEDS: methylnaltrexone br 12mg/0.6ml inj***SubQ only SQ SCH (07:21)
[2018-02-23] MEDS: pantoprazole 40 MG vial IV SCH (07:21)
[2018-02-23] MEDS: insulin regular, human vial - multi-dose SQ SCH ×3 (07:46→20:12)
[2018-02-23] MEDS: K, MAG and/or Phos replacement - Verify level? MC SCH (08:00)
[2018-02-23] MEDS: normal saline 1000ml 1,000 ML IV SCH ×2 (09:44→21:48)
[2018-02-23] MEDS ORDERED: rocuronium 10mg/ml inj IV ONE (09:45)
--- NOTE | 2018-02-23 10:12 | NUR ---
Eugenia [address] Means. Pt received total 6 mg Versed, 50 mcg Fentanyl, 80 mg rocuronium for procedure. HR elevated to 130s.
--- NOTE | 2018-02-23 11:26 | NUR ---
16 Fr NG placed in right nares.
--- NOTE | 2018-02-23 18:25 | NUR ---
Problems reprioritized. Patient report given, questions answered & plan of care reviewed with JOHAN Naranjo.
--- NOTE | 2018-02-23 18:30 | NUR ---
Patient in room ICU 2043. I have received report from JOHAN Childs and had the opportunity to ask questions and assume patient care.
[2018-02-23] MEDS: insulin glargine (Lantus) pen - multi-dose SQ SCH (20:13)
[2018-02-24] VITALS (24 sets, daily range): BP systolic 94–137; BP diastolic 43–83
--- NOTE | 2018-02-24 01:30 | NUR ---
Pt very agitated throughout evening. Requiring increase in sedation as well as frequent boluses with Fentanyl and Cathi Barragan PA aware.
[2018-02-24] MEDS: midazolam 100mg in NS 100ml 100 ML IV PRN ×3 (01:38→18:52)
[2018-02-24] MEDS: metoclopramide 5 mg/ml inj IV SCH ×4 (01:38→19:55)
[2018-02-24] MEDS: methylPREDNISolone sod succ 125mg/2ml vial IV SCH ×4 (01:38→19:55)
[2018-02-24] MEDS: mineral oil/petrolatum ophthal oint EACHEYE SCH ×4 (01:39→19:55)
[2018-02-24] MEDS: ipratropium/albuterol 3ml nebule NEB SCH ×6 (03:02→23:21)
[2018-02-24 03:11] LABS: BASOPHILS % (AUTO) 0 % (0-1); EOSINOPHILS % (AUTO) 0.1 % (0-6); HEMATOCRIT 30.6 % (42.0-52.0); HEMOGLOBIN 10.2 g/dl (14.0-17.9); LYMPHOCYTES # (AUTO) 0.3 X10'3 (1.1-4.8); LYMPHOCYTES % (AUTO) 1.2 % (21-51); MEAN CORPUSCULAR HEMOGLOBIN 28.9 PG (27.0-31.0); MEAN CORPUSCULAR HGB CONC 33.4 % (33.0-36.5); MEAN CORPUSCULAR VOLUME 86.5 FL (78-98); MEAN PLATELET VOLUME 8.6 FL (7.4-10.4); MONOCYTES # (AUTO) 0.9 X10'3 (0-0.9); MONOCYTES % (AUTO) 3.8 % (2-12); NEUTROPHILS # (AUTO) 21.3 X10'3 (1.8-7.7); NEUTROPHILS % (AUTO) 94.9 % (42-75); PLATELET COUNT 219 X10'3 (140-440); RED BLOOD COUNT 3.54 X10'6 (4.70-6.10); RED CELL DISTRIBUTION WIDTH 14.3 % (11.5-14.5); WHITE BLOOD COUNT 22.5 X10'3 (4.5-11.0)
[2018-02-24 03:16] LABS: ALANINE AMINOTRANSFERASE 37 U/L (12-78); ALBUMIN 2.2 G/DL (3.4-5.0); ALBUMIN/GLOBULIN RATIO 0.6 (1.1-1.5); ALKALINE PHOSPHATASE 92 IU/L (46-116); ANION GAP 9 (8-16); ASPARTATE AMINO TRANSFERASE 30 U/L (10-37); BILIRUBIN,TOTAL 0.4 MG/DL (0.1-1.0); BLOOD UREA NITROGEN 62 MG/DL (7-18); BUN/CREATININE RATIO 47.3 (5.4-32.0); CALCIUM 8.4 MG/DL (8.5-10.1); CHLORIDE 114 MMOL/L (99-107); CREATININE 1.31 MG/DL (0.60-1.10); GLUCOSE 148 MG/DL (70-104); MAGNESIUM 2.4 MG/DL (1.5-2.4); PHOSPHORUS 2.8 MG/DL (2.3-4.5); SODIUM 149 MMOL/L (135-145); TOTAL CARBON DIOXIDE 25.7 MMOL/L (24-32); TOTAL PROTEIN 5.6 G/DL (6.4-8.2); eGFR 54 ML/MIN
[2018-02-24 03:20] LABS: ABG BASE EXCESS -3.8 mmol/L (-2.0-3.0); ABG HCO3 21.6 mmol/L (22.0-26.0); ABG OXYGEN SATURATION 97.3 % (95-98); ABG PCO2 (T) 40.4 mmHg (35.0-48.0); ABG PH (T) 7.345 (7.350-7.450); ABG PO2 (T) 106.6 mmHg (83-108); ALLEN'S TEST Positive; FCOHb 0.3 % (0.5-1.5); FMetHb 0.3 % (0.3-1.12); FO2Hb 96.7 % (94-100); PATIENT TEMPERATURE 36.9; PEEP 5 cm H2O; RESPIRATORY RATE 22 b/min; RESPIRATORY RATE (OBSERVED) 22 b/min; TIDAL VOLUME 450 mL; TOTAL HEMOGLOBIN 11.4 G/dl (14.0-18.0)
[2018-02-24] MEDS: VANCOMYCIN 750MG IV in NS 250 ML IV SCH ×2 (04:54→16:49)
--- NOTE | 2018-02-24 06:21 | NUR ---
Problems reprioritized. Patient report given, questions answered & plan of care reviewed with JOHAN Adair.
[2018-02-24] MEDS: pantoprazole 40 MG vial IV SCH (07:01)
[2018-02-24] MEDS: levoFLOXACIN-Levaquin 750MG/D5 150 ML IV SCH (07:01)
[2018-02-24] MEDS: lactobacillus rhamnosus 10,000 MMU CELLS/CAPSULE PO SCH ×2 (07:02→19:55)
[2018-02-24] MEDS: atorvastatin 10mg tablet PO SCH (07:02)
[2018-02-24] MEDS: insulin regular, human vial - multi-dose SQ SCH ×3 (07:25→20:06)
[2018-02-24] MEDS: K, MAG and/or Phos replacement - Verify level? MC SCH (08:00)
[2018-02-24] MEDS: FENTANYL-0.9 % NACL/PF 100 ML IV PRN ×2 (08:44→18:51)
--- NOTE | 2018-02-24 11:00 | NUR ---
During rounds with Dr. Guerrero, orders to increase sedation to obtain RASS score 0 to -3 and that we are not trying to wean him off at this time; likely will be sent to LTACH for relationship banker treatment. Patient not tolerating weaning of sedation and becomes anxious with frequent non-purposeful movements.Will contact case management for discharge planning. MD aware of sinus tach into the 130s; per MD, increasing sedation and pain medication will help. No further orders at this time.
[2018-02-24] MEDS: normal saline 1000ml 1,000 ML IV SCH (14:19)
--- NOTE | 2018-02-24 18:41 | NUR ---
Problems reprioritized. Patient report given, questions answered & plan of care reviewed with Marcella PRADO.
--- NOTE | 2018-02-24 18:45 | NUR ---
Patient in room ICU 2043. I have received report from JOHAN Adair and had the opportunity to ask questions and assume patient care.
[2018-02-24] MEDS: insulin glargine (Lantus) pen - multi-dose SQ SCH (20:07)
[2018-02-25] VITALS (24 sets, daily range): BP systolic 96–155; BP diastolic 48–85
[2018-02-25] MEDS: mineral oil/petrolatum ophthal oint EACHEYE SCH ×4 (01:24→19:58)
[2018-02-25] MEDS: metoclopramide 5 mg/ml inj IV SCH ×4 (01:24→19:57)
[2018-02-25] MEDS: methylPREDNISolone sod succ 125mg/2ml vial IV SCH ×2 (01:24→07:59)
[2018-02-25] MEDS: normal saline 1000ml 1,000 ML IV SCH ×2 (01:26→15:05)
[2018-02-25] MEDS: insulin regular, human vial - multi-dose SQ SCH ×4 (02:06→21:39)
[2018-02-25 02:52] LABS: BASOPHILS # (AUTO) 0.1 X10'3 (0-0.2); BASOPHILS % (AUTO) 0.2 % (0-1); EOSINOPHILS % (AUTO) 0 % (0-6); HEMATOCRIT 32.2 % (42.0-52.0); HEMOGLOBIN 10.6 g/dl (14.0-17.9); LYMPHOCYTES # (AUTO) 0.3 X10'3 (1.1-4.8); MEAN CORPUSCULAR HEMOGLOBIN 28.8 PG (27.0-31.0); MEAN CORPUSCULAR VOLUME 87.1 FL (78-98); MEAN PLATELET VOLUME 8.6 FL (7.4-10.4); NEUTROPHILS # (AUTO) 30.4 X10'3 (1.8-7.7); NEUTROPHILS % (AUTO) 95.8 % (42-75); PLATELET COUNT 247 X10'3 (140-440); RED CELL DISTRIBUTION WIDTH 14.6 % (11.5-14.5)
[2018-02-25] MEDS: ipratropium/albuterol 3ml nebule NEB SCH ×6 (02:55→23:16)
[2018-02-25 02:59] LABS: ALANINE AMINOTRANSFERASE 43 U/L (12-78); ALBUMIN 2.2 G/DL (3.4-5.0); ALBUMIN/GLOBULIN RATIO 0.6 (1.1-1.5); ALKALINE PHOSPHATASE 85 IU/L (46-116); ANION GAP 10 (8-16); ASPARTATE AMINO TRANSFERASE 31 U/L (10-37); BILIRUBIN,TOTAL 0.4 MG/DL (0.1-1.0); BLOOD UREA NITROGEN 72 MG/DL (7-18); BUN/CREATININE RATIO 48.6 (5.4-32.0); CALCIUM 8.2 MG/DL (8.5-10.1); CHLORIDE 114 MMOL/L (99-107); CREATININE 1.48 MG/DL (0.60-1.10); GLUCOSE 172 MG/DL (70-104); MAGNESIUM 2.6 MG/DL (1.5-2.4); PHOSPHORUS 4.2 MG/DL (2.3-4.5); POTASSIUM 5.2 MMOL/L (3.5-5.1); SODIUM 148 MMOL/L (135-145); TOTAL CARBON DIOXIDE 24.4 MMOL/L (24-32); TOTAL PROTEIN 5.7 G/DL (6.4-8.2); eGFR 47 ML/MIN
[2018-02-25 03:02] LABS: WHITE BLOOD COUNT 31.8 X10'3 (4.5-11.0)
--- NOTE | 2018-02-25 03:10 | NUR ---
WBC critical at 31.8, orders rcvd for blood cultures, UA, and and sputum culture, complete.
[2018-02-25 03:11] LABS: ABG BASE EXCESS -6.9 mmol/L (-2.0-3.0); ABG HCO3 19.2 mmol/L (22.0-26.0); ABG OXYGEN SATURATION 94.3 % (95-98); ABG PCO2 (T) 41.5 mmHg (35.0-48.0); ABG PH (T) 7.285 (7.350-7.450); ABG PO2 (T) 79.9 mmHg (83-108); ALLEN'S TEST Positive; FCOHb 0.3 % (0.5-1.5); FMetHb 0.3 % (0.3-1.12); FO2Hb 93.7 % (94-100); MINUTE VOLUME 9 L/min; PATIENT TEMPERATURE 37.4; PEEP 5 cm H2O; RESPIRATORY RATE (OBSERVED) 15 b/min; TOTAL HEMOGLOBIN 11.2 G/dl (14.0-18.0)
[2018-02-25 03:40] LABS: PLATELET ESTIMATE NORMAL; TOTAL CELLS COUNTED 100
[2018-02-25] MEDS: VANCOMYCIN 750MG IV in NS 250 ML IV SCH ×2 (04:22→19:56)
[2018-02-25] MEDS: FENTANYL-0.9 % NACL/PF 100 ML IV PRN ×2 (04:25→15:43)
[2018-02-25] MEDS: midazolam 100mg in NS 100ml 100 ML IV PRN ×2 (04:26→15:43)
[2018-02-25 05:05] LABS: CLARITY,URINE CLEAR (Clear); COLOR,URINE YELLOW (Yellow); GLUCOSE, URINE NEGATIVE (Neg); KETONES,URINE NEGATIVE (Neg); LEUKOCYTE ESTERASE ,URINE SMALL (Neg); NITRITES, URINE NEGATIVE (Neg); OCCULT BLOOD,URINE LARGE (Neg); PH,URINE 5.5 (4.8-8.0); PROTEIN,URINE NEGATIVE (Neg); UROBILINOGEN,URINE 0.2 E.U/dL (0.2-1.0)
[2018-02-25 05:17] LABS: UA COLLECTION TYPE OTHER
[2018-02-25 05:29] LABS: BACTERIA,URINE 1+ /HPF (Neg); RBC,URINE TNTC /HPF (0-2); SQUAMOUS EPITHELIAL CELL,UR FEW /LPF (FEW)
--- NOTE | 2018-02-25 06:23 | NUR ---
Problems reprioritized. Patient report given, questions answered & plan of care reviewed with JOHAN Childs.
[2018-02-25] MEDS: atorvastatin 10mg tablet PO SCH (07:59)
[2018-02-25] MEDS: pantoprazole 40 MG vial IV SCH (07:59)
[2018-02-25] MEDS: levoFLOXACIN-Levaquin 750MG/D5 150 ML IV SCH (07:59)
[2018-02-25] MEDS: lactobacillus rhamnosus 10,000 MMU CELLS/CAPSULE PO SCH ×2 (07:59→19:58)
[2018-02-25] MEDS: methylnaltrexone br 12mg/0.6ml inj***SubQ only SQ SCH (08:00)
[2018-02-25] MEDS: K, MAG and/or Phos replacement - Verify level? MC SCH (08:00)
--- NOTE | 2018-02-25 10:00 | NUR ---
18 g PIV to right upper arm, right IJ central line discontinued.
[2018-02-25] MEDS ORDERED: enoxaparin 30mg/0.3ml syringe SUBCUT ONE (11:10)
--- NOTE | 2018-02-25 12:20 | NUR ---
Reassessment: Pt s/p tracheostomy placement 02/23. Pt continues to tolerate TF at goal rate of 70 mL/hr with low residuals 5-100 mL. Pt still without a BM since admit, receiving routine Reglan and Relistor. Will continue to follow. Recommendations: 1) Continuous TF via OG tube with Vital AF with goal rate of 70 mL/hr to provide: total volume of 1680 mL/day, 2016 kcal, 126 g protein, 1361ml water 2) 150 mL water flush q 6 hrs per MD 3) Prealbumin q / 4) Daily wt 5) routine bowel care Addendum: 02/25/18 at [address] Amended: Links added.
[2018-02-25] MEDS: methylPREDNISolone sod succ/PF 40mg inj. IV SCH ×2 (15:36→19:57)
[2018-02-25] MEDS ORDERED: VANCOMYCIN LEVEL IV ONE (16:30)
[2018-02-25] MEDS ORDERED: bisacodyl 10mg suppository rectal RC PRN (18:30)
--- NOTE | 2018-02-25 18:30 | NUR ---
Patient in room ICU 2043. I have received report from Ranjit PRADO and had the opportunity to ask questions and assume patient care.
--- NOTE | 2018-02-25 18:33 | NUR ---
Problems reprioritized. Patient report given, questions answered & plan of care reviewed with JOHAN Prajapati.
[2018-02-25] MEDS: polyethylene glycol 3350 17gm powd pack PO SCH (21:30)
[2018-02-25] MEDS: insulin glargine (Lantus) pen - multi-dose SQ SCH (21:41)
[2018-02-26] VITALS (24 sets, daily range): BP systolic 81–157; BP diastolic 44–84
[2018-02-26] MEDS: FENTANYL-0.9 % NACL/PF 100 ML IV PRN ×4 (00:03→18:26)
[2018-02-26] MEDS: mineral oil/petrolatum ophthal oint EACHEYE SCH ×4 (02:10→20:59)
[2018-02-26] MEDS: methylPREDNISolone sod succ/PF 40mg inj. IV SCH ×4 (02:10→20:59)
[2018-02-26] MEDS: metoclopramide 5 mg/ml inj IV SCH ×4 (02:10→21:00)
[2018-02-26] MEDS: midazolam 100mg in NS 100ml 100 ML IV PRN ×2 (02:14→14:32)
[2018-02-26] MEDS: insulin regular, human vial - multi-dose SQ SCH ×4 (02:54→21:27)
[2018-02-26] MEDS: ipratropium/albuterol 3ml nebule NEB SCH ×6 (02:57→22:32)
[2018-02-26 03:16] LABS: ABG BASE EXCESS -3.1 mmol/L (-2.0-3.0); ABG HCO3 24.9 mmol/L (22.0-26.0); ABG OXYGEN SATURATION 95.2 % (95-98); ABG PCO2 (T) 60.3 mmHg (35.0-48.0); ABG PH (T) 7.237 (7.350-7.450); ABG PO2 (T) 88.6 mmHg (83-108); ALLEN'S TEST Positive; FMetHb 0.3 % (0.3-1.12); FO2Hb 94.9 % (94-100); MINUTE VOLUME 9 L/min; PATIENT TEMPERATURE 37.7; PEEP 5 cm H2O; RESPIRATORY RATE (OBSERVED) 16 b/min; TOTAL HEMOGLOBIN 11.8 G/dl (14.0-18.0)
[2018-02-26] MEDS: acetaminophen 325mg tablet PO PRN (03:58)
[2018-02-26] MEDS: normal saline 1000ml 1,000 ML IV SCH ×2 (04:42→17:56)
[2018-02-26] MEDS: VANCOMYCIN 750MG IV in NS 250 ML IV SCH ×2 (05:33→17:39)
[2018-02-26 05:42] LABS: BASOPHILS # (AUTO) 0.5 X10'3 (0-0.2); BASOPHILS % (AUTO) 1.8 % (0-1); EOSINOPHILS % (AUTO) 0 % (0-6); HEMATOCRIT 32.5 % (42.0-52.0); HEMOGLOBIN 10.7 g/dl (14.0-17.9); LYMPHOCYTES # (AUTO) 0.4 X10'3 (1.1-4.8); LYMPHOCYTES % (AUTO) 1.4 % (21-51); MEAN CORPUSCULAR HEMOGLOBIN 28.6 PG (27.0-31.0); MEAN CORPUSCULAR HGB CONC 32.9 % (33.0-36.5); MEAN PLATELET VOLUME 8.8 FL (7.4-10.4); MONOCYTES % (AUTO) 3.4 % (2-12); NEUTROPHILS # (AUTO) 26.1 X10'3 (1.8-7.7); NEUTROPHILS % (AUTO) 93.4 % (42-75); PLATELET COUNT 238 X10'3 (140-440); RED BLOOD COUNT 3.73 X10'6 (4.70-6.10); RED CELL DISTRIBUTION WIDTH 14.8 % (11.5-14.5)
[2018-02-26 05:52] LABS: ALBUMIN 2.1 G/DL (3.4-5.0); ALBUMIN/GLOBULIN RATIO 0.6 (1.1-1.5); ANION GAP 8 (8-16); ASPARTATE AMINO TRANSFERASE 22 U/L (10-37); BILIRUBIN,TOTAL 0.4 MG/DL (0.1-1.0); BLOOD UREA NITROGEN 83 MG/DL (7-18); BUN/CREATININE RATIO 54.2 (5.4-32.0); CHLORIDE 117 MMOL/L (99-107); CREATININE 1.53 MG/DL (0.60-1.10); GLUCOSE 190 MG/DL (70-104); MAGNESIUM 2.6 MG/DL (1.5-2.4); PHOSPHORUS 4.5 MG/DL (2.3-4.5); POTASSIUM 5.6 MMOL/L (3.5-5.1); SODIUM 149 MMOL/L (135-145); TOTAL CARBON DIOXIDE 23.7 MMOL/L (24-32); TOTAL PROTEIN 5.6 G/DL (6.4-8.2); eGFR 45 ML/MIN
[2018-02-26 05:53] LABS: ALANINE AMINOTRANSFERASE 41 U/L (12-78); ALKALINE PHOSPHATASE 67 IU/L (46-116); PREALBUMIN 20.4 MG/DL (19-36)
--- NOTE | 2018-02-26 05:55 | NUR ---
critical wbc 28.0 notifyed lucho, will continue to monitor
--- NOTE | 2018-02-26 06:29 | NUR ---
Problems reprioritized. Patient report given,Majo PRADO questions answered & plan of care reviewed with .
[2018-02-26 06:36] LABS: TOTAL CELLS COUNTED 100
[2018-02-26 06:37] LABS: ANISOCYTOSIS 1+; PLATELET ESTIMATE NORMAL; POIKILOCYTOSIS FEW
[2018-02-26] MEDS: pantoprazole 40 MG vial IV SCH (07:34)
[2018-02-26] MEDS: levoFLOXACIN-Levaquin 750MG/D5 150 ML IV SCH (07:34)
[2018-02-26] MEDS: lactobacillus rhamnosus 10,000 MMU CELLS/CAPSULE PO SCH ×2 (07:35→20:59)
[2018-02-26] MEDS: enoxaparin 40mg/0.4ml syringe SUBCUT SCH (07:35)
[2018-02-26] MEDS: atorvastatin 10mg tablet PO SCH (07:42)
[2018-02-26] MEDS ORDERED: enoxaparin 30mg/0.3ml syringe SUBCUT SCH (08:00)
[2018-02-26] MEDS: K, MAG and/or Phos replacement - Verify level? MC SCH (08:07)
--- NOTE | 2018-02-26 18:21 | NUR ---
Patient in room ICU 2043. I have received report from Majo PRADO and had the opportunity to ask questions and assume patient care.
[2018-02-26] MEDS: polyethylene glycol 3350 17gm powd pack PO SCH (21:01)
[2018-02-26] MEDS: insulin glargine (Lantus) pen - multi-dose SQ SCH (21:28)
--- NOTE | 2018-02-26 23:05 | NUR ---
called Erica notified him of the patient having a 28 beat run of SVT, reviewed meds and labs, at this time he does not want to add anything to his regimen, stated to keep an eye on him, vital signs stable will continue to monitor
[2018-02-27] VITALS (24 sets, daily range): BP systolic 84–150; BP diastolic 45–92
[2018-02-27] MEDS: ipratropium/albuterol 3ml nebule NEB SCH ×6 (02:23→22:29)
[2018-02-27] MEDS: methylPREDNISolone sod succ/PF 40mg inj. IV SCH ×4 (03:12→19:57)
[2018-02-27] MEDS: metoclopramide 5 mg/ml inj IV SCH ×2 (03:12→07:21)
[2018-02-27] MEDS: mineral oil/petrolatum ophthal oint EACHEYE SCH ×4 (03:12→19:58)
[2018-02-27] MEDS: FENTANYL-0.9 % NACL/PF 100 ML IV PRN ×3 (03:16→18:49)
[2018-02-27 03:46] LABS: ABG BASE EXCESS -1.6 mmol/L (-2.0-3.0); ABG HCO3 23.7 mmol/L (22.0-26.0); ABG OXYGEN SATURATION 97.2 % (95-98); ABG PCO2 (T) 42.7 mmHg (35.0-48.0); ABG PH (T) 7.363 (7.350-7.450); ABG PO2 (T) 102.4 mmHg (83-108); ALLEN'S TEST Positive; FCOHb 0.3 % (0.5-1.5); FMetHb 0.3 % (0.3-1.12); FO2Hb 96.6 % (94-100); MINUTE VOLUME 10 L/min; PATIENT TEMPERATURE 37.2; PEEP 5 cm H2O; RESPIRATORY RATE 22 b/min; RESPIRATORY RATE (OBSERVED) 22 b/min; TIDAL VOLUME 450 mL; TOTAL HEMOGLOBIN 10.5 G/dl (14.0-18.0)
[2018-02-27] MEDS: VANCOMYCIN 750MG IV in NS 250 ML IV SCH ×2 (05:06→17:53)
[2018-02-27 06:07] LABS: BASOPHILS # (AUTO) 0.1 X10'3 (0-0.2); BASOPHILS % (AUTO) 0.6 % (0-1); EOSINOPHILS % (AUTO) 0 % (0-6); HEMATOCRIT 29.2 % (42.0-52.0); HEMOGLOBIN 9.5 g/dl (14.0-17.9); LYMPHOCYTES # (AUTO) 0.2 X10'3 (1.1-4.8); LYMPHOCYTES % (AUTO) 1.1 % (21-51); MEAN CORPUSCULAR HEMOGLOBIN 28.7 PG (27.0-31.0); MEAN CORPUSCULAR HGB CONC 32.7 % (33.0-36.5); MEAN CORPUSCULAR VOLUME 87.7 FL (78-98); MEAN PLATELET VOLUME 8.5 FL (7.4-10.4); MONOCYTES # (AUTO) 0.8 X10'3 (0-0.9); NEUTROPHILS # (AUTO) 19.5 X10'3 (1.8-7.7); NEUTROPHILS % (AUTO) 94.3 % (42-75); PLATELET COUNT 201 X10'3 (140-440); RED BLOOD COUNT 3.33 X10'6 (4.70-6.10); RED CELL DISTRIBUTION WIDTH 14.9 % (11.5-14.5); WHITE BLOOD COUNT 20.6 X10'3 (4.5-11.0)
--- NOTE | 2018-02-27 06:15 | NUR ---
Patient in room ICU 2043. I have received report from JOHAN Prajapati and had the opportunity to ask questions and assume patient care.
[2018-02-27 06:20] LABS: ALANINE AMINOTRANSFERASE 35 U/L (12-78); ALBUMIN 1.7 G/DL (3.4-5.0); ALBUMIN/GLOBULIN RATIO 0.6 (1.1-1.5); ALKALINE PHOSPHATASE 54 IU/L (46-116); ANION GAP 7 (8-16); ASPARTATE AMINO TRANSFERASE 21 U/L (10-37); BILIRUBIN,TOTAL 0.4 MG/DL (0.1-1.0); BLOOD UREA NITROGEN 84 MG/DL (7-18); BUN/CREATININE RATIO 59.2 (5.4-32.0); CALCIUM 7.9 MG/DL (8.5-10.1); CHLORIDE 120 MMOL/L (99-107); CREATININE 1.42 MG/DL (0.60-1.10); GLUCOSE 120 MG/DL (70-104); MAGNESIUM 2.6 MG/DL (1.5-2.4); PHOSPHORUS 3.9 MG/DL (2.3-4.5); POTASSIUM 5.6 MMOL/L (3.5-5.1); SODIUM 151 MMOL/L (135-145); TOTAL CARBON DIOXIDE 23.7 MMOL/L (24-32); TOTAL PROTEIN 4.5 G/DL (6.4-8.2); eGFR 50 ML/MIN
--- NOTE | 2018-02-27 06:28 | NUR ---
Problems reprioritized. Patient report given,Junior RN questions answered & plan of care reviewed with .
[2018-02-27] MEDS: levoFLOXACIN-Levaquin 750MG/D5 150 ML IV SCH (07:20)
[2018-02-27] MEDS: atorvastatin 10mg tablet PO SCH (07:21)
[2018-02-27] MEDS: methylnaltrexone br 12mg/0.6ml inj***SubQ only SQ SCH (07:21)
[2018-02-27] MEDS: pantoprazole 40 MG vial IV SCH (07:21)
[2018-02-27] MEDS: enoxaparin 40mg/0.4ml syringe SUBCUT SCH (07:21)
[2018-02-27] MEDS: lactobacillus rhamnosus 10,000 MMU CELLS/CAPSULE PO SCH ×2 (07:21→19:56)
[2018-02-27] MEDS: normal saline 1000ml 1,000 ML IV SCH ×2 (07:23→20:25)
[2018-02-27] MEDS: K, MAG and/or Phos replacement - Verify level? MC SCH (07:24)
[2018-02-27] MEDS: insulin regular, human vial - multi-dose SQ SCH ×3 (09:36→21:30)
[2018-02-27] MEDS: midazolam 100mg in NS 100ml 100 ML IV PRN ×2 (10:16→21:38)
--- NOTE | 2018-02-27 11:40 | NUR ---
Notified Dr. Guerrero of increased HR. No new orders received. Will continue to monitor.
[2018-02-27] MEDS ORDERED: adenosine 3mg/ml 2ml vial IV ONE (11:50)
[2018-02-27] MEDS ORDERED: normal saline 1000ml 1,000 ML IV ONE (12:05)
--- NOTE | 2018-02-27 15:06 | NUR ---
Reassessment: Pt s/p tracheostomy placement 02/23. Pt continues to tolerate TF at goal rate of 70 mL/hr with low residuals. Pt still without a BM since admit, was receiving routine Reglan and Relistor however reglan was stopped today. Will continue to follow. Recommendations: 1) Continuous TF via OG tube with Vital AF with goal rate of 70 mL/hr to provide: total volume of 1680 mL/day, 2016 kcal, 126 g protein, 1361ml water 2) 150 mL water flush q 6 hrs per MD 3) Prealbumin q / 4) Daily wt 5) routine bowel care Addendum: 02/27/18 at [address] Amended: Links added.
--- NOTE | 2018-02-27 18:10 | NUR ---
Problems reprioritized. Patient report given, questions answered & plan of care reviewed with JOHAN Prajapati.
--- NOTE | 2018-02-27 18:30 | NUR ---
Patient in room ICU 2043. I have received report from Junior PRADO and had the opportunity to ask questions and assume patient care.
[2018-02-27] MEDS: famotidine/PF 10 mg/ml inj IV SCH (19:57)
[2018-02-27] MEDS: acetaminophen 325mg tablet PO PRN (19:57)
[2018-02-27] MEDS: polyethylene glycol 3350 17gm powd pack PO SCH (21:27)
[2018-02-27] MEDS: insulin glargine (Lantus) pen - multi-dose SQ SCH (21:31)
[2018-02-28] VITALS (24 sets, daily range): BP systolic 71–154; BP diastolic 41–81
[2018-02-28] MEDS: ipratropium/albuterol 3ml nebule NEB SCH ×6 (02:30→22:30)
[2018-02-28] MEDS: methylPREDNISolone sod succ/PF 40mg inj. IV SCH ×4 (02:46→19:52)
[2018-02-28] MEDS: mineral oil/petrolatum ophthal oint EACHEYE SCH ×4 (02:46→19:52)
[2018-02-28] MEDS: insulin regular, human vial - multi-dose SQ SCH ×4 (02:55→19:56)
[2018-02-28] MEDS: FENTANYL-0.9 % NACL/PF 100 ML IV PRN ×4 (03:02→22:15)
[2018-02-28 04:15] LABS: ABG BASE EXCESS -1.6 mmol/L (-2.0-3.0); ABG HCO3 23.3 mmol/L (22.0-26.0); ABG OXYGEN SATURATION 93.8 % (95-98); ABG PCO2 (T) 41.3 mmHg (35.0-48.0); ABG PH (T) 7.372 (7.350-7.450); ABG PO2 (T) 73.4 mmHg (83-108); ALLEN'S TEST Positive; FCOHb 0.4 % (0.5-1.5); FMetHb 0.3 % (0.3-1.12); FO2Hb 93.1 % (94-100); MINUTE VOLUME 9 L/min; PATIENT TEMPERATURE 37.6; PEEP 5 cm H2O; RESPIRATORY RATE 22 b/min; RESPIRATORY RATE (OBSERVED) 22 b/min; TIDAL VOLUME 450 mL; TOTAL HEMOGLOBIN 10.3 G/dl (14.0-18.0)
[2018-02-28] MEDS: VANCOMYCIN 750MG IV in NS 250 ML IV SCH ×2 (04:58→16:53)
[2018-02-28 06:03] LABS: BASOPHILS % (AUTO) 0 % (0-1); EOSINOPHILS # (AUTO) 0.4 X10'3 (0-0.9); EOSINOPHILS % (AUTO) 1.6 % (0-6); HEMATOCRIT 29.1 % (42.0-52.0); HEMOGLOBIN 9.4 g/dl (14.0-17.9); LYMPHOCYTES # (AUTO) 0.3 X10'3 (1.1-4.8); LYMPHOCYTES % (AUTO) 1.3 % (21-51); MEAN CORPUSCULAR HGB CONC 32.4 % (33.0-36.5); MEAN CORPUSCULAR VOLUME 86.7 FL (78-98); MEAN PLATELET VOLUME 8.6 FL (7.4-10.4); MONOCYTES # (AUTO) 0.5 X10'3 (0-0.9); MONOCYTES % (AUTO) 2.3 % (2-12); NEUTROPHILS # (AUTO) 21.5 X10'3 (1.8-7.7); NEUTROPHILS % (AUTO) 94.8 % (42-75); PLATELET COUNT 208 X10'3 (140-440); RED BLOOD COUNT 3.36 X10'6 (4.70-6.10); WHITE BLOOD COUNT 22.7 X10'3 (4.5-11.0)
--- NOTE | 2018-02-28 06:15 | NUR ---
Patient in room ICU 2043. I have received report from JOHAN Prajapati and had the opportunity to ask questions and assume patient care.
[2018-02-28 06:18] LABS: ALANINE AMINOTRANSFERASE 35 U/L (12-78); ALBUMIN 1.7 G/DL (3.4-5.0); ALBUMIN/GLOBULIN RATIO 0.6 (1.1-1.5); ALKALINE PHOSPHATASE 55 IU/L (46-116); ANION GAP 9 (8-16); ASPARTATE AMINO TRANSFERASE 29 U/L (10-37); BILIRUBIN,TOTAL 0.4 MG/DL (0.1-1.0); BLOOD UREA NITROGEN 83 MG/DL (7-18); BUN/CREATININE RATIO 62.9 (5.4-32.0); CALCIUM 7.8 MG/DL (8.5-10.1); CHLORIDE 118 MMOL/L (99-107); CREATININE 1.32 MG/DL (0.60-1.10); GLUCOSE 152 MG/DL (70-104); MAGNESIUM 2.6 MG/DL (1.5-2.4); PHOSPHORUS 4.4 MG/DL (2.3-4.5); POTASSIUM 5.8 MMOL/L (3.5-5.1); SODIUM 151 MMOL/L (135-145); TOTAL CARBON DIOXIDE 24.2 MMOL/L (24-32); TOTAL PROTEIN 4.6 G/DL (6.4-8.2); eGFR 54 ML/MIN
[2018-02-28] MEDS: K, MAG and/or Phos replacement - Verify level? MC SCH (07:44)
[2018-02-28] MEDS: levoFLOXACIN-Levaquin 750MG/D5 150 ML IV SCH (07:51)
[2018-02-28] MEDS: lactobacillus rhamnosus 10,000 MMU CELLS/CAPSULE PO SCH ×2 (07:52→19:52)
[2018-02-28] MEDS: famotidine/PF 10 mg/ml inj IV SCH ×2 (07:52→19:52)
[2018-02-28] MEDS: atorvastatin 10mg tablet PO SCH (07:52)
[2018-02-28] MEDS: enoxaparin 40mg/0.4ml syringe SUBCUT SCH (07:52)
[2018-02-28] MEDS: midazolam 100mg in NS 100ml 100 ML IV PRN ×2 (09:07→20:50)
[2018-02-28] MEDS: normal saline 1000ml 1,000 ML IV SCH ×2 (09:52→22:50)
--- NOTE | 2018-02-28 18:20 | NUR ---
Patient in room ICU 2043. I have received report from Junior PRADO and had the opportunity to ask questions and assume patient care. Patient laying in bed, trached on ventilator and sedated. Patient breathing at 22 breaths/min on A/C VC mode and saturating at 97% on 40% FIO2. HR in low 100's in sinus tachycardia. Will continue to monitor patient.
--- NOTE | 2018-02-28 18:20 | NUR ---
Problems reprioritized. Patient report given, questions answered & plan of care reviewed with JOHAN Kwon.
[2018-02-28] MEDS: polyethylene glycol 3350 17gm powd pack PO SCH (19:52)
[2018-02-28] MEDS: insulin glargine (Lantus) pen - multi-dose SQ SCH (19:58)
[2018-03-01] VITALS (19 sets, daily range): BP systolic 85–162; BP diastolic 47–75
--- NOTE | 2018-03-01 | NUR ---
Patient frequently restless, attempting to sit up and agitated. Patient responding to fentanyl and versed boluses for PRN agitation/pain. Will continue to monitor patient.
[2018-03-01] MEDS: ipratropium/albuterol 3ml nebule NEB SCH ×6 (02:21→22:30)
[2018-03-01] MEDS: methylPREDNISolone sod succ/PF 40mg inj. IV SCH ×2 (02:43→09:23)
[2018-03-01] MEDS: mineral oil/petrolatum ophthal oint EACHEYE SCH ×4 (02:43→19:54)
[2018-03-01] MEDS: insulin regular, human vial - multi-dose SQ SCH ×4 (02:49→21:03)
[2018-03-01 03:46] LABS: ABG BASE EXCESS -3.7 mmol/L (-2.0-3.0); ABG HCO3 22.5 mmol/L (22.0-26.0); ABG OXYGEN SATURATION 92.5 % (95-98); ABG PCO2 (T) 46.4 mmHg (35.0-48.0); ABG PH (T) 7.306 (7.350-7.450); ABG PO2 (T) 75.7 mmHg (83-108); ALLEN'S TEST Positive; FCOHb 0.4 % (0.5-1.5); FO2Hb 92.1 % (94-100); MINUTE VOLUME 11 L/min; PATIENT TEMPERATURE 37.6; PEEP 5 cm H2O; RESPIRATORY RATE 22 b/min; RESPIRATORY RATE (OBSERVED) 23 b/min; TIDAL VOLUME 450 mL; TOTAL HEMOGLOBIN 11.1 G/dl (14.0-18.0)
[2018-03-01] MEDS: VANCOMYCIN 750MG IV in NS 250 ML IV SCH ×2 (04:42→17:09)
[2018-03-01] MEDS: midazolam 100mg in NS 100ml 100 ML IV PRN ×2 (05:07→17:09)
[2018-03-01] MEDS: FENTANYL-0.9 % NACL/PF 100 ML IV PRN ×3 (05:09→19:54)
[2018-03-01 06:08] LABS: ALANINE AMINOTRANSFERASE 41 U/L (12-78); ALBUMIN 1.9 G/DL (3.4-5.0); ALBUMIN/GLOBULIN RATIO 0.7 (1.1-1.5); ALKALINE PHOSPHATASE 55 IU/L (46-116); ANION GAP 8 (8-16); ASPARTATE AMINO TRANSFERASE 39 U/L (10-37); BILIRUBIN,TOTAL 0.4 MG/DL (0.1-1.0); BLOOD UREA NITROGEN 79 MG/DL (7-18); BUN/CREATININE RATIO 66.4 (5.4-32.0); CALCIUM 7.9 MG/DL (8.5-10.1); CHLORIDE 118 MMOL/L (99-107); CREATININE 1.19 MG/DL (0.60-1.10); GLUCOSE 154 MG/DL (70-104); MAGNESIUM 2.6 MG/DL (1.5-2.4); PHOSPHORUS 5.3 MG/DL (2.3-4.5); SODIUM 151 MMOL/L (135-145); TOTAL CARBON DIOXIDE 24.9 MMOL/L (24-32); TOTAL PROTEIN 4.8 G/DL (6.4-8.2); eGFR 61 ML/MIN
[2018-03-01 06:13] LABS: POTASSIUM 6.1 MMOL/L (3.5-5.1)
--- NOTE | 2018-03-01 06:13 | NUR ---
Notified Noe Maldonado NP regarding patient's critical K value of 6.1. New orders received for 30gm Kayexalate x1 dose.
[2018-03-01] MEDS ORDERED: sodium polystyrene sulfonate 15gm/60ml oral suspension PO ONE (06:15)
--- NOTE | 2018-03-01 06:26 | NUR ---
Problems reprioritized. Patient report given, questions answered & plan of care reviewed with Eli PRADO.
[2018-03-01 06:28] LABS: BASOPHILS % (AUTO) 0 % (0-1); EOSINOPHILS # (AUTO) 0.3 X10'3 (0-0.9); EOSINOPHILS % (AUTO) 1.1 % (0-6); HEMATOCRIT 30.5 % (42.0-52.0); HEMOGLOBIN 9.8 g/dl (14.0-17.9); LYMPHOCYTES # (AUTO) 0.1 X10'3 (1.1-4.8); LYMPHOCYTES % (AUTO) 0.5 % (21-51); MEAN CORPUSCULAR HEMOGLOBIN 27.8 PG (27.0-31.0); MEAN CORPUSCULAR VOLUME 86.8 FL (78-98); MONOCYTES # (AUTO) 0.5 X10'3 (0-0.9); MONOCYTES % (AUTO) 1.7 % (2-12); NEUTROPHILS # (AUTO) 28.9 X10'3 (1.8-7.7); NEUTROPHILS % (AUTO) 96.7 % (42-75); PLATELET COUNT 225 X10'3 (140-440); RED BLOOD COUNT 3.51 X10'6 (4.70-6.10); RED CELL DISTRIBUTION WIDTH 16.4 % (11.5-14.5)
[2018-03-01 06:33] LABS: WHITE BLOOD COUNT 29.9 X10'3 (4.5-11.0)
--- NOTE | 2018-03-01 06:41 | NUR ---
Patient in room ICU 2043. I have received report from JOHAN Kwon and had the opportunity to ask questions and assume patient care.
[2018-03-01] MEDS: K, MAG and/or Phos replacement - Verify level? MC SCH (08:00)
[2018-03-01 08:37] LABS: ANISOCYTOSIS 1+; PLATELET ESTIMATE NORMAL; TOTAL CELLS COUNTED 100
[2018-03-01] MEDS: lactobacillus rhamnosus 10,000 MMU CELLS/CAPSULE PO SCH ×2 (09:23→19:54)
[2018-03-01] MEDS: levoFLOXACIN-Levaquin 750MG/D5 150 ML IV SCH (09:23)
[2018-03-01] MEDS: atorvastatin 10mg tablet PO SCH (09:23)
[2018-03-01] MEDS: famotidine/PF 10 mg/ml inj IV SCH ×2 (09:23→19:54)
[2018-03-01] MEDS: enoxaparin 40mg/0.4ml syringe SUBCUT SCH (09:25)
[2018-03-01] MEDS: normal saline 1000ml 1,000 ML IV SCH (12:25)
[2018-03-01] MEDS ORDERED: normal saline 1000ml 1,000 ML IV ONE (13:30)
[2018-03-01] MEDS: methylnaltrexone br 12mg/0.6ml inj***SubQ only SQ SCH (14:18)
--- NOTE | 2018-03-01 16:30 | NUR ---
Sedation with Versed increased per Dr Guerrero for tachycardia-required mult increased to a rate of 10 mg/hr, heart rate now 120-130. Appears calmer. Also rec NS liter bolus and cooling measures with ice and decreased room temp- was febrile to 38.2, Temp now 37.7.
--- NOTE | 2018-03-01 18:27 | NUR ---
Patient in room ICU 2043. I have received report from Summer RN and had the opportunity to ask questions and assume patient care.
[2018-03-01] MEDS: insulin glargine (Lantus) pen - multi-dose SQ SCH (21:04)
[2018-03-01] MEDS: polyethylene glycol 3350 17gm powd pack PO SCH (21:08)
[2018-03-02] VITALS (24 sets, daily range): BP systolic 71–116; BP diastolic 41–60
[2018-03-02] MEDS: normal saline 1000ml 1,000 ML IV SCH ×2 (01:45→15:05)
[2018-03-02] MEDS: ipratropium/albuterol 3ml nebule NEB SCH ×6 (02:30→22:28)
[2018-03-02] MEDS: mineral oil/petrolatum ophthal oint EACHEYE SCH ×4 (03:33→19:37)
[2018-03-02] MEDS: FENTANYL-0.9 % NACL/PF 100 ML IV PRN ×2 (03:33→17:48)
[2018-03-02 03:51] LABS: ABG BASE EXCESS -1.8 mmol/L (-2.0-3.0); ABG HCO3 25.1 mmol/L (22.0-26.0); ABG OXYGEN SATURATION 88.8 % (95-98); ABG PCO2 (T) 54.3 mmHg (35.0-48.0); ABG PH (T) 7.286 (7.350-7.450); ABG PO2 (T) 61.2 mmHg (83-108); ALLEN'S TEST Positive; FCOHb 0.7 % (0.5-1.5); FO2Hb 88.2 % (94-100); MINUTE VOLUME 13 L/min; PATIENT TEMPERATURE 37.7; PEEP 5 cm H2O; RESPIRATORY RATE 22 b/min; RESPIRATORY RATE (OBSERVED) 23 b/min; TIDAL VOLUME 450 mL; TOTAL HEMOGLOBIN 11.1 G/dl (14.0-18.0)
[2018-03-02] MEDS: midazolam 100mg in NS 100ml 100 ML IV PRN ×3 (03:55→20:09)
[2018-03-02] MEDS: VANCOMYCIN 750MG IV in NS 250 ML IV SCH ×2 (05:23→17:48)
--- NOTE | 2018-03-02 06:10 | NUR ---
Problems reprioritized. Patient report given, questions answered & plan of care reviewed with SUMMER RN.
--- NOTE | 2018-03-02 06:25 | NUR ---
Patient in room ICU 2043. I have received report from JOHAN Prajapati and had the opportunity to ask questions and assume patient care.
[2018-03-02 06:26] LABS: ALANINE AMINOTRANSFERASE 55 U/L (12-78); ALBUMIN 1.9 G/DL (3.4-5.0); ALBUMIN/GLOBULIN RATIO 0.6 (1.1-1.5); ALKALINE PHOSPHATASE 63 IU/L (46-116); ANION GAP 10 (8-16); ASPARTATE AMINO TRANSFERASE 52 U/L (10-37); BILIRUBIN,TOTAL 0.5 MG/DL (0.1-1.0); BLOOD UREA NITROGEN 79 MG/DL (7-18); BUN/CREATININE RATIO 66.9 (5.4-32.0); CALCIUM 8.1 MG/DL (8.5-10.1); CHLORIDE 119 MMOL/L (99-107); CREATININE 1.18 MG/DL (0.60-1.10); GLUCOSE 69 MG/DL (70-104); MAGNESIUM 2.6 MG/DL (1.5-2.4); PHOSPHORUS 5.1 MG/DL (2.3-4.5); POTASSIUM 5.5 MMOL/L (3.5-5.1); PREALBUMIN 19.6 MG/DL (19-36); SODIUM 153 MMOL/L (135-145); TOTAL CARBON DIOXIDE 23.9 MMOL/L (24-32); eGFR 61 ML/MIN
[2018-03-02 06:29] LABS: BASOPHILS % (AUTO) 0.1 % (0-1); EOSINOPHILS # (AUTO) 0.8 X10'3 (0-0.9); HEMATOCRIT 31.1 % (42.0-52.0); HEMOGLOBIN 9.9 g/dl (14.0-17.9); LYMPHOCYTES # (AUTO) 1.1 X10'3 (1.1-4.8); LYMPHOCYTES % (AUTO) 2.9 % (21-51); MEAN CORPUSCULAR HEMOGLOBIN 27.9 PG (27.0-31.0); MEAN CORPUSCULAR HGB CONC 31.9 % (33.0-36.5); MEAN CORPUSCULAR VOLUME 87.6 FL (78-98); MONOCYTES # (AUTO) 1.7 X10'3 (0-0.9); MONOCYTES % (AUTO) 4.5 % (2-12); NEUTROPHILS # (AUTO) 34.1 X10'3 (1.8-7.7); NEUTROPHILS % (AUTO) 90.5 % (42-75); PLATELET COUNT 226 X10'3 (140-440); RED BLOOD COUNT 3.55 X10'6 (4.70-6.10); RED CELL DISTRIBUTION WIDTH 16.3 % (11.5-14.5)
[2018-03-02 06:33] LABS: WHITE BLOOD COUNT 37.7 X10'3 (4.5-11.0)
--- NOTE | 2018-03-02 06:56 | NUR ---
WBC to 37.7 this morning. Lungs with increased rhonci/ wet sounding. Febrile at 38. No bm yet with decreased bowel sounds this morning. Abd distended but soft. Noe Maldonado called with critical results, hernandez cultures ordered. cxr done this am.
[2018-03-02] MEDS: enoxaparin 40mg/0.4ml syringe SUBCUT SCH (07:27)
[2018-03-02] MEDS: lactobacillus rhamnosus 10,000 MMU CELLS/CAPSULE PO SCH ×2 (07:27→19:37)
[2018-03-02] MEDS: levoFLOXACIN-Levaquin 750MG/D5 150 ML IV SCH (07:27)
[2018-03-02] MEDS: atorvastatin 10mg tablet PO SCH (07:27)
[2018-03-02] MEDS: famotidine/PF 10 mg/ml inj IV SCH ×2 (07:28→19:37)
[2018-03-02 07:48] LABS: TOTAL CELLS COUNTED 100
[2018-03-02 07:49] LABS: ANISOCYTOSIS 1+; PLATELET ESTIMATE NORMAL; TOXIC GRANULATION 1+
[2018-03-02] MEDS ORDERED: normal saline 1000ml 1,000 ML IV ONE ×3 (08:00→16:50)
[2018-03-02] MEDS: K, MAG and/or Phos replacement - Verify level? MC SCH (08:00)
--- NOTE | 2018-03-02 08:00 | NUR ---
Blood, urine and sputum cx, lactic acide all sent
--- NOTE | 2018-03-02 14:08 | NUR ---
BP's low, maps 45-55. Fluid bolus started and rec order for second liter of normal saline. Per Dr Guerrero will place picc for poss need for pressors. Picc nurse paged
--- NOTE | 2018-03-02 14:22 | NUR ---
reassessment: Pt tolerating TF at goal. Na elevated but also started to have BM today large amount per RN. No plans for PEG at this time s/p tracheostomy. Will continue to monitor for additional hydration needs. Recommendations: 1) Continuous TF via OG tube with Vital AF with goal rate of 70 mL/hr to provide: total volume of 1680 mL/day, 2016 kcal, 126 g protein, 1361ml water 2) 150 mL water flush q 6 hrs; increase per MD Na 153 3) Prealbumin q / 4) Daily wt 5) routine bowel care Addendum: 03/02/18 at [address] Amended: Links added.
[2018-03-02 16:01] LABS: ABG BASE EXCESS -6.8 mmol/L (-2.0-3.0); ABG OXYGEN SATURATION 86.3 % (95-98); ABG PCO2 (T) 54.8 mmHg (35.0-48.0); ABG PH (T) 7.206 (7.350-7.450); ABG PO2 (T) 63.4 mmHg (83-108); ALLEN'S TEST Positive; FCOHb 0.5 % (0.5-1.5); FMetHb 0.1 % (0.3-1.12); FO2Hb 85.8 % (94-100); PATIENT TEMPERATURE 37.9; PEEP 5 cm H2O; RESPIRATORY RATE 22 b/min; TOTAL HEMOGLOBIN 10.4 G/dl (14.0-18.0)
[2018-03-02] MEDS: NORepinephrine 8mg/ 250ml NS 250 ML IV SCH ×2 (16:21→23:25)
--- NOTE | 2018-03-02 17:09 | NUR ---
Dr Means updated on patient condition by zinc furnace charger Laine, 3rd Normal Saline bolus and Levophed started. Family is updated on patient condition. Son Abhijeet, decision maker is at bedside, as well as Sister. Awaiting input from Dr Means.
--- NOTE | 2018-03-02 17:50 | NUR ---
9 beat v tach, Dr Guerrero made aware
--- NOTE | 2018-03-02 18:30 | NUR ---
Patient in room ICU 2043. I have received report from Eli PRADO and had the opportunity to ask questions and assume patient care.
--- NOTE | 2018-03-02 18:39 | NUR ---
Problems reprioritized. Patient report given, questions answered & plan of care reviewed with JOHAN Palomo.
--- NOTE | 2018-03-02 19:18 | NUR ---
Family is in the room with the patient. They have been informed by the MD of the patient's status. They have stated that in the morning they will be having a family mary's igloo to discuss what will be done going forward.
[2018-03-02] MEDS: piperacillin/tazo 3.375gm/50ml 50 ML IV SCH (19:37)
[2018-03-02] MEDS: polyethylene glycol 3350 17gm powd pack PO SCH (21:00)
--- NOTE | 2018-03-02 22:00 | NUR ---
Patient had a large BM. During the linen change the patient was turned to the left, and immediately dropped his BP from 80/60 to 29/20. He also drop his O2 sats from 94% to 69%. He was given 100% FiO2 to bring his Sats back up, and the Levophed drip was increased from 18 to 25.
[2018-03-02] MEDS ORDERED: albumin (Human) 5% 250ml 250 ML IV ONE (22:05)
[2018-03-02] MEDS: albumin (Human) 5% 250ml 250 ML IV SCH ×2 (22:25→23:24)
[2018-03-02] MEDS: insulin glargine (Lantus) pen - multi-dose SQ SCH (22:45)
[2018-03-03] VITALS (26 sets, daily range): BP systolic 1–154; BP diastolic 38–77
[2018-03-03 00:56] LABS: ABG BASE EXCESS -8.8 mmol/L (-2.0-3.0); ABG HCO3 19.5 mmol/L (22.0-26.0); ABG OXYGEN SATURATION 91.7 % (95-98); ABG PCO2 (T) 56.1 mmHg (35.0-48.0); ABG PH (T) 7.165 (7.350-7.450); ABG PO2 (T) 77.4 mmHg (83-108); ALLEN'S TEST Positive; FCOHb 0.8 % (0.5-1.5); FMetHb 0.2 % (0.3-1.12); FO2Hb 90.8 % (94-100); MINUTE VOLUME 12 L/min; PATIENT TEMPERATURE 38.1; PEEP 5 cm H2O; RESPIRATORY RATE 22 b/min; RESPIRATORY RATE (OBSERVED) 28 b/min; TIDAL VOLUME 439 mL; TOTAL HEMOGLOBIN 10.4 G/dl (14.0-18.0)
[2018-03-03] MEDS: vasopressin inj. 60 UNIT in normal saline 100ml IV soln 97 ML IV PRN (00:56)
[2018-03-03] MEDS: piperacillin/tazo 3.375gm/50ml 50 ML IV SCH ×4 (01:41→19:40)
[2018-03-03] MEDS: mineral oil/petrolatum ophthal oint EACHEYE SCH ×4 (01:42→19:40)
[2018-03-03 02:25] LABS: BASOPHILS % (AUTO) 0 % (0-1); EOSINOPHILS # (AUTO) 0.2 X10'3 (0-0.9); EOSINOPHILS % (AUTO) 0.5 % (0-6); HEMATOCRIT 29.1 % (42.0-52.0); HEMOGLOBIN 9.1 g/dl (14.0-17.9); LYMPHOCYTES # (AUTO) 0.7 X10'3 (1.1-4.8); LYMPHOCYTES % (AUTO) 1.7 % (21-51); MEAN CORPUSCULAR HEMOGLOBIN 27.7 PG (27.0-31.0); MEAN CORPUSCULAR HGB CONC 31.3 % (33.0-36.5); MEAN CORPUSCULAR VOLUME 88.5 FL (78-98); MEAN PLATELET VOLUME 9.5 FL (7.4-10.4); MONOCYTES # (AUTO) 2.4 X10'3 (0-0.9); MONOCYTES % (AUTO) 5.7 % (2-12); NEUTROPHILS # (AUTO) 38.3 X10'3 (1.8-7.7); NEUTROPHILS % (AUTO) 92.1 % (42-75); PLATELET COUNT 249 X10'3 (140-440); RED BLOOD COUNT 3.28 X10'6 (4.70-6.10); RED CELL DISTRIBUTION WIDTH 16.7 % (11.5-14.5)
[2018-03-03] MEDS: ipratropium/albuterol 3ml nebule NEB SCH ×6 (02:28→22:35)
[2018-03-03 02:39] LABS: WHITE BLOOD COUNT 41.6 X10'3 (4.5-11.0)
[2018-03-03 03:41] LABS: ABG BASE EXCESS -6.6 mmol/L (-2.0-3.0); ABG HCO3 20.3 mmol/L (22.0-26.0); ABG OXYGEN SATURATION 94.5 % (95-98); ABG PCO2 (T) 49.1 mmHg (35.0-48.0); ABG PO2 (T) 85.5 mmHg (83-108); ALLEN'S TEST Positive; FCOHb 0.3 % (0.5-1.5); FO2Hb 94.2 % (94-100); MINUTE VOLUME 14 L/min; PATIENT TEMPERATURE 38.2; PEEP 5 cm H2O; RESPIRATORY RATE 20 b/min; RESPIRATORY RATE (OBSERVED) 22 b/min; TIDAL VOLUME 572 mL; TOTAL HEMOGLOBIN 9.7 G/dl (14.0-18.0)
[2018-03-03] MEDS: normal saline 1000ml 1,000 ML IV SCH ×2 (03:58→17:45)
[2018-03-03 04:02] LABS: ALBUMIN 1.9 G/DL (3.4-5.0); ALBUMIN/GLOBULIN RATIO 0.7 (1.1-1.5); ALKALINE PHOSPHATASE 71 IU/L (46-116); ANION GAP 14 (8-16); BILIRUBIN,TOTAL 1.1 MG/DL (0.1-1.0); BLOOD UREA NITROGEN 98 MG/DL (7-18); BUN/CREATININE RATIO 54.7 (5.4-32.0); CALCIUM 7.1 MG/DL (8.5-10.1); CHLORIDE 117 MMOL/L (99-107); CREATININE 1.79 MG/DL (0.60-1.10); GLUCOSE 131 MG/DL (70-104); MAGNESIUM 2.5 MG/DL (1.5-2.4); PHOSPHORUS 7.4 MG/DL (2.3-4.5); SODIUM 152 MMOL/L (135-145); TOTAL CARBON DIOXIDE 21.3 MMOL/L (24-32); TOTAL PROTEIN 4.6 G/DL (6.4-8.2); eGFR 38 ML/MIN
[2018-03-03 04:07] LABS: POTASSIUM 6.6 MMOL/L (3.5-5.1)
[2018-03-03 04:09] LABS: ALANINE AMINOTRANSFERASE 1761 U/L (12-78)
[2018-03-03 04:09] LABS: TOTAL CELLS COUNTED 100
[2018-03-03 04:10] LABS: ANISOCYTOSIS 1+; PLATELET ESTIMATE NORMAL; TOXIC GRANULATION 2+
[2018-03-03] MEDS ORDERED: sodium polystyrene sulfonate 15gm/60ml oral suspension PO ONE ×3 (04:20→20:30)
[2018-03-03] MEDS ORDERED: dextrose 50%-water 50ml dispensing syringe IV ONE ×2 (04:20→20:30)
[2018-03-03] MEDS ORDERED: insulin regular, human 10 units/0.1 ml syringe SQ ONE (04:20)
[2018-03-03] MEDS ORDERED: calcium chloride 100 MG/1 ML inj IV ONE ×2 (04:20→13:05)
[2018-03-03 04:31] LABS: ASPARTATE AMINO TRANSFERASE 3808 U/L (10-37)
[2018-03-03] MEDS: NORepinephrine 8mg/ 250ml NS 250 ML IV SCH ×2 (04:34→17:15)
[2018-03-03] MEDS: insulin regular, human vial - multi-dose SQ SCH (04:37)
[2018-03-03] MEDS: VANCOMYCIN 750MG IV in NS 250 ML IV SCH (05:52)
--- NOTE | 2018-03-03 06:39 | NUR ---
Problems reprioritized. Patient report given, questions answered & plan of care reviewed with Victorina PRADO.
[2018-03-03] MEDS: famotidine/PF 10 mg/ml inj IV SCH ×2 (07:52→19:40)
[2018-03-03] MEDS: atorvastatin 10mg tablet PO SCH (07:54)
[2018-03-03] MEDS: lactobacillus rhamnosus 10,000 MMU CELLS/CAPSULE PO SCH ×2 (07:54→19:40)
[2018-03-03] MEDS: enoxaparin 40mg/0.4ml syringe SUBCUT SCH (07:54)
[2018-03-03] MEDS: K, MAG and/or Phos replacement - Verify level? MC SCH (08:00)
[2018-03-03] MEDS: methylnaltrexone br 12mg/0.6ml inj***SubQ only SQ SCH (08:00)
[2018-03-03 12:46] LABS: ALBUMIN 1.9 G/DL (3.4-5.0); ANION GAP 13 (8-16); BLOOD UREA NITROGEN 118 MG/DL (7-18); BUN/CREATININE RATIO 51.8 (5.4-32.0); CALCIUM 7.4 MG/DL (8.5-10.1); CHLORIDE 118 MMOL/L (99-107); CREATININE 2.28 MG/DL (0.60-1.10); GLUCOSE 207 MG/DL (70-104); SODIUM 150 MMOL/L (135-145); TOTAL CARBON DIOXIDE 18.6 MMOL/L (24-32); eGFR 29 ML/MIN
[2018-03-03] MEDS ORDERED: albuterol 2.5 mg/0.5ml nebule NEB STA (13:01)
[2018-03-03] MEDS ORDERED: sodium bicarbonate (8.4%) 1 mEq/ml syringe IV ONE (13:05)
[2018-03-03] MEDS ORDERED: albuterol 2.5 MG/3 ML nebule ONE (13:07)
[2018-03-03] MEDS ORDERED: albuterol 2.5 MG/3 ML nebule NEB STA (13:07)
[2018-03-03] MEDS ORDERED: sodium bicarbonate (8.4%) 1 mEq/ml syringe ONE (13:08)
[2018-03-03] MEDS: insulin regular, human 100 UNIT in normal saline 100ml IV soln 99 ML IV SCH ×2 (14:00)
[2018-03-03] MEDS ORDERED: LIDOcaine 1%/PF 5ML 10 MG/ML VIAL ONE (14:30)
--- NOTE | 2018-03-03 14:57 | NUR ---
reassessment: Pt tolerating TF at goal. Na elevated but also started to have BM today large amount per RN. No plans for PEG at this time s/p tracheostomy. Will continue to monitor for additional hydration needs. Recommendations: 1) Continuous TF via OG tube with Vital AF with goal rate of 70 mL/hr to provide: total volume of 1680 mL/day, 2016 kcal, 126 g protein, 1361ml water 2) 300 ml water flush q 4 3) Prealbumin q / 4) Daily wt Addendum: 03/03/18 at [address] Amended: Links added.
[2018-03-03 15:34] LABS: GLUCOSE,BODY FLUID 156 MG/DL; LDH,BODY FLUID 36 U/L
[2018-03-03 15:49] LABS: BFAPPEAR HAZY; BFCOLOR STRAW; BFVOLUME 4.5 ML; LYMPHOCYTES,BODY FLUID 2 %; MONOCYTES,BODY FLUID 1 %; NEUTROPHILS,BODY FLUID 97 %
[2018-03-03 15:50] LABS: BF RBC COUNT 1190 /CU MM; BF WBC COUNT 58 /CU MM (0-1000)
[2018-03-03] MEDS ORDERED: VANCOMYCIN LEVEL IV NR (16:30)
--- NOTE | 2018-03-03 16:45 | NUR ---
Patient in room ICU 2043. I have received report from Berkley PRADO and had the opportunity to ask questions and assume patient care.
--- NOTE | 2018-03-03 17:00 | NUR ---
patient BS is 141 which is within goal for the insulin drip running at 5 units per hour. No change in rate at this time
--- NOTE | 2018-03-03 18:12 | NUR ---
patient having a lot of loose stool, per Krahling order received to place rectal tube.
--- NOTE | 2018-03-03 18:37 | NUR ---
Problems reprioritized. Patient report given, questions answered & plan of care reviewed with Raudel PRADO.
--- NOTE | 2018-03-03 18:38 | NUR ---
Patient in room ICU 2043. I have received report from Jeannette PRADO and had the opportunity to ask questions and assume patient care.
[2018-03-03] MEDS: Dextrose 10%-water IV solution 1,000 ML IV SCH (19:05)
[2018-03-03] MEDS: polyethylene glycol 3350 17gm powd pack PO SCH (19:40)
--- NOTE | 2018-03-03 20:00 | NUR ---
Dr Guerrero and Dr Suarez were both present at start of shift. Erick called the pt's son Abhijeet Meza III to obtain consent. Myself and Jim PRADO both spoke with the son as well to verify consent. Dr Suarez stated the patient would be on the schedule for tomorrow afternoon, 1400 at the earliest. continue to monitor.
[2018-03-03] MEDS ORDERED: albuterol 2.5 MG/3 ML nebule CONTNEB ONE (20:30)
[2018-03-03] MEDS ORDERED: insulin regular, human 10 units/0.1 ml syringe IV ONE (20:30)
[2018-03-04] VITALS (26 sets, daily range): BP systolic 76–144; BP diastolic 36–61
[2018-03-04] MEDS: NORepinephrine 8mg/ 250ml NS 250 ML IV SCH ×3 (01:00→21:24)
[2018-03-04] MEDS: mineral oil/petrolatum ophthal oint EACHEYE SCH ×4 (01:00→19:36)
[2018-03-04] MEDS: piperacillin/tazo 3.375gm/50ml 50 ML IV SCH ×4 (01:03→19:36)
[2018-03-04] MEDS: ipratropium/albuterol 3ml nebule NEB SCH ×6 (02:27→22:25)
[2018-03-04 03:15] LABS: BASOPHILS # (AUTO) 0.4 X10'3 (0-0.2); BASOPHILS % (AUTO) 1.1 % (0-1); EOSINOPHILS % (AUTO) 0.1 % (0-6); HEMATOCRIT 25.5 % (42.0-52.0); HEMOGLOBIN 8.5 g/dl (14.0-17.9); LYMPHOCYTES # (AUTO) 0.4 X10'3 (1.1-4.8); MEAN CORPUSCULAR HEMOGLOBIN 29.5 PG (27.0-31.0); MEAN CORPUSCULAR HGB CONC 33.5 % (33.0-36.5); MEAN CORPUSCULAR VOLUME 87.8 FL (78-98); MEAN PLATELET VOLUME 9.6 FL (7.4-10.4); MONOCYTES # (AUTO) 1.1 X10'3 (0-0.9); NEUTROPHILS # (AUTO) 36.3 X10'3 (1.8-7.7); NEUTROPHILS % (AUTO) 94.8 % (42-75); PLATELET COUNT 179 X10'3 (140-440); RED CELL DISTRIBUTION WIDTH 15.5 % (11.5-14.5)
[2018-03-04 03:34] LABS: ALBUMIN 1.7 G/DL (3.4-5.0); ALBUMIN/GLOBULIN RATIO 0.6 (1.1-1.5); ALKALINE PHOSPHATASE 122 IU/L (46-116); ANION GAP 15 (8-16); BILIRUBIN,TOTAL 1.1 MG/DL (0.1-1.0); BLOOD UREA NITROGEN 127 MG/DL (7-18); BUN/CREATININE RATIO 46.2 (5.4-32.0); CALCIUM 7.2 MG/DL (8.5-10.1); CHLORIDE 118 MMOL/L (99-107); CREATININE 2.75 MG/DL (0.60-1.10); GLUCOSE 206 MG/DL (70-104); MAGNESIUM 2.5 MG/DL (1.5-2.4); PHOSPHORUS 8.9 MG/DL (2.3-4.5); POTASSIUM 5.9 MMOL/L (3.5-5.1); SODIUM 152 MMOL/L (135-145); TOTAL CARBON DIOXIDE 19.2 MMOL/L (24-32); TOTAL PROTEIN 4.5 G/DL (6.4-8.2); eGFR 23 ML/MIN
[2018-03-04 03:40] LABS: ALANINE AMINOTRANSFERASE 2601 U/L (12-78); ASPARTATE AMINO TRANSFERASE 2536 U/L (10-37)
[2018-03-04 03:44] LABS: WHITE BLOOD COUNT 38.2 X10'3 (4.5-11.0)
[2018-03-04 04:37] LABS: ABG BASE EXCESS -11.4 mmol/L (-2.0-3.0); ABG HCO3 17.5 mmol/L (22.0-26.0); ABG OXYGEN SATURATION 93.2 % (95-98); ABG PCO2 (T) 53.3 mmHg (35.0-48.0); ABG PH (T) 7.132 (7.350-7.450); ABG PO2 (T) 81.2 mmHg (83-108); FCOHb 0.1 % (0.5-1.5); FMetHb 0.2 % (0.3-1.12); FO2Hb 92.9 % (94-100); MINUTE VOLUME 12 L/min; PATIENT TEMPERATURE 36.7; PEEP 5 cm H2O; RESPIRATORY RATE 22 b/min; RESPIRATORY RATE (OBSERVED) 26 b/min; TIDAL VOLUME 501 mL; TOTAL HEMOGLOBIN 9.7 G/dl (14.0-18.0)
[2018-03-04] MEDS: Dextrose 10%-water IV solution 1,000 ML IV SCH ×2 (04:41→15:02)
[2018-03-04 04:45] LABS: NUCLEATED RED BLOOD CELLS 1 /100WBC (0-0); TOTAL CELLS COUNTED 100
[2018-03-04 04:46] LABS: ANISOCYTOSIS 1+; PLATELET ESTIMATE NORMAL
--- NOTE | 2018-03-04 06:45 | NUR ---
Patient in room ICU 2043. I have received report from JOHAN Starks and had the opportunity to ask questions and assume patient care.
--- NOTE | 2018-03-04 06:48 | NUR ---
Problems reprioritized. Patient report given, questions answered & plan of care reviewed with Allie PRADO.
[2018-03-04] MEDS: insulin regular, human 100 UNIT in normal saline 100ml IV soln 99 ML IV SCH ×2 (07:10)
[2018-03-04] MEDS: enoxaparin 40mg/0.4ml syringe SUBCUT SCH (08:00)
[2018-03-04] MEDS: famotidine/PF 10 mg/ml inj IV SCH ×2 (08:22→19:36)
[2018-03-04] MEDS: atorvastatin 10mg tablet PO SCH (08:22)
[2018-03-04] MEDS: lactobacillus rhamnosus 10,000 MMU CELLS/CAPSULE PO SCH ×2 (08:22→19:36)
[2018-03-04] MEDS: K, MAG and/or Phos replacement - Verify level? MC SCH (08:24)
[2018-03-04 10:52] LABS: INR 1.5 INR; PARTIAL THROMBOPLASTIN TIME 40 SECONDS (22-32); PROTHROMBIN TIME 15.2 SECONDS (9.0-12.0)
[2018-03-04] MEDS ORDERED: iohexol 300 MG/1 ML 50ml polymer ONE (12:13)
[2018-03-04] MEDS ORDERED: sevoflurane 250ml liquid IH ONE (12:32)
[2018-03-04] MEDS ORDERED: NORepinephrine bitartrate 8 MG in NS 250 ML BAG (32 mcg/ml) IV ONE (12:32)
--- NOTE | 2018-03-04 12:40 | NUR ---
Pt taken to OR by surgery RN rashaun AMLONEY, on levo, vaso, insulin, D10, NS with rectal tube, perez and NG, PICC, PIV and A line. HR in the 140's and BP ranging from 110's to 140's/40's-60's.
[2018-03-04] MEDS: normal saline 1000ml 1,000 ML IV SCH ×2 (15:02→19:37)
--- NOTE | 2018-03-04 15:38 | NUR ---
Dr. Guerrero placed a straight noelle in the pt's R groin with US, awaiting CVVH orders and bags from pharmacy. At present time pharmacy is out of calcium and waiting for it to be made. Addressed insulin gtt and D10 with MD and it is to be turned off when CVVH is started.
[2018-03-04] MEDS ORDERED: magnesium 4gm in 100ml NS 100 ML IV PRN (16:30)
[2018-03-04] MEDS ORDERED: sodium phosphate inj. 30 MMOL in normal saline 250ml IV soln 250 ML IV PRN (16:30)
[2018-03-04] MEDS ORDERED: calcium chloride inj. 1,000 MG in normal saline 100ml IV soln 100 ML IV PRN (16:30)
--- NOTE | 2018-03-04 18:43 | NUR ---
Problems reprioritized. Patient report given, questions answered & plan of care reviewed with JOHAN Hays.
--- NOTE | 2018-03-04 18:44 | NUR ---
Patient in room ICU 2043. I have received report from JOHAN Kelley, and had the opportunity to ask questions and assume patient care.
[2018-03-04] MEDS: calcium chloride inj. 1,100 MG in Duosol 4k/NO Calcium 5,000 ML IV SCH ×3 (19:15→19:17)
[2018-03-04] MEDS: polyethylene glycol 3350 17gm powd pack PO SCH (19:37)
[2018-03-04 21:47] LABS: EOSINOPHILS # (AUTO) 0.1 X10'3 (0-0.9); EOSINOPHILS % (AUTO) 0.3 % (0-6)
[2018-03-04 22:01] LABS: BASOPHILS # (AUTO) 0.7 X10'3 (0-0.2); BASOPHILS % (AUTO) 1.6 % (0-1); HEMATOCRIT 27.2 % (42.0-52.0); HEMOGLOBIN 8.8 g/dl (14.0-17.9); LYMPHOCYTES % (AUTO) 2.2 % (21-51); MEAN CORPUSCULAR HEMOGLOBIN 28.8 PG (27.0-31.0); MEAN CORPUSCULAR HGB CONC 32.5 % (33.0-36.5); MEAN CORPUSCULAR VOLUME 88.7 FL (78-98); MEAN PLATELET VOLUME 9.7 FL (7.4-10.4); MONOCYTES # (AUTO) 0.6 X10'3 (0-0.9); MONOCYTES % (AUTO) 1.4 % (2-12); NEUTROPHILS # (AUTO) 42.3 X10'3 (1.8-7.7); NEUTROPHILS % (AUTO) 94.5 % (42-75); PLATELET COUNT 212 X10'3 (140-440); RED BLOOD COUNT 3.06 X10'6 (4.70-6.10); RED CELL DISTRIBUTION WIDTH 16.1 % (11.5-14.5)
[2018-03-04 22:04] LABS: WHITE BLOOD COUNT 44.7 X10'3 (4.5-11.0)
[2018-03-04 22:09] LABS: ALBUMIN 1.7 G/DL (3.4-5.0); ALBUMIN/GLOBULIN RATIO 0.6 (1.1-1.5); ALKALINE PHOSPHATASE 178 IU/L (46-116); ANION GAP 19 (8-16); BILIRUBIN,TOTAL 1.2 MG/DL (0.1-1.0); BLOOD UREA NITROGEN 117 MG/DL (7-18); BUN/CREATININE RATIO 41.1 (5.4-32.0); CALCIUM 7.1 MG/DL (8.5-10.1); CHLORIDE 112 MMOL/L (99-107); CREATININE 2.85 MG/DL (0.60-1.10); GLUCOSE 130 MG/DL (70-104); MAGNESIUM 2.4 MG/DL (1.5-2.4); SODIUM 147 MMOL/L (135-145); TOTAL CARBON DIOXIDE 16.2 MMOL/L (24-32); TOTAL PROTEIN 4.7 G/DL (6.4-8.2); eGFR 22 ML/MIN
[2018-03-04 22:15] LABS: ALANINE AMINOTRANSFERASE 2030 U/L (12-78); ASPARTATE AMINO TRANSFERASE 1146 U/L (10-37)
--- NOTE | 2018-03-04 23:00 | NUR ---
Mottling noted to left knee, cool to touch and prolonged capillary refill time.
[2018-03-04 23:23] LABS: BASOPHILS # (AUTO) 0.1 X10'3 (0-0.2); BASOPHILS % (AUTO) 0.3 % (0-1); EOSINOPHILS # (AUTO) 0.1 X10'3 (0-0.9); EOSINOPHILS % (AUTO) 0.2 % (0-6); HEMOGLOBIN 8.4 g/dl (14.0-17.9); LYMPHOCYTES # (AUTO) 0.3 X10'3 (1.1-4.8); LYMPHOCYTES % (AUTO) 0.6 % (21-51); MEAN CORPUSCULAR HEMOGLOBIN 28.7 PG (27.0-31.0); MEAN CORPUSCULAR HGB CONC 32.4 % (33.0-36.5); MEAN CORPUSCULAR VOLUME 88.6 FL (78-98); MEAN PLATELET VOLUME 9.8 FL (7.4-10.4); MONOCYTES # (AUTO) 0.2 X10'3 (0-0.9); MONOCYTES % (AUTO) 0.4 % (2-12); NEUTROPHILS # (AUTO) 42.7 X10'3 (1.8-7.7); NEUTROPHILS % (AUTO) 98.5 % (42-75); PLATELET COUNT 181 X10'3 (140-440); RED BLOOD COUNT 2.94 X10'6 (4.70-6.10); RED CELL DISTRIBUTION WIDTH 16.4 % (11.5-14.5)
[2018-03-04 23:27] LABS: WHITE BLOOD COUNT 43.4 X10'3 (4.5-11.0)
[2018-03-04 23:38] LABS: ALBUMIN 1.7 G/DL (3.4-5.0); ALBUMIN/GLOBULIN RATIO 0.6 (1.1-1.5); ALKALINE PHOSPHATASE 186 IU/L (46-116); ANION GAP 17 (8-16); BILIRUBIN,TOTAL 1.3 MG/DL (0.1-1.0); BLOOD UREA NITROGEN 113 MG/DL (7-18); BUN/CREATININE RATIO 41.9 (5.4-32.0); CALCIUM 7.2 MG/DL (8.5-10.1); CHLORIDE 112 MMOL/L (99-107); GLUCOSE 139 MG/DL (70-104); MAGNESIUM 2.3 MG/DL (1.5-2.4); POTASSIUM 4.8 MMOL/L (3.5-5.1); SODIUM 146 MMOL/L (135-145); TOTAL CARBON DIOXIDE 17.5 MMOL/L (24-32); TOTAL PROTEIN 4.6 G/DL (6.4-8.2); eGFR 24 ML/MIN
[2018-03-04 23:48] LABS: ALANINE AMINOTRANSFERASE 1958 U/L (12-78); ASPARTATE AMINO TRANSFERASE 1075 U/L (10-37)
[2018-03-05] VITALS (24 sets, daily range): BP systolic 90–141; BP diastolic 30–62
[2018-03-05 00:21] LABS: ALBUMIN 1.7 G/DL (3.4-5.0); ALBUMIN/GLOBULIN RATIO 0.6 (1.1-1.5); ALKALINE PHOSPHATASE 188 IU/L (46-116); ANION GAP 16 (8-16); ASPARTATE AMINO TRANSFERASE 981 U/L (10-37); BILIRUBIN,TOTAL 1.3 MG/DL (0.1-1.0); BLOOD UREA NITROGEN 109 MG/DL (7-18); BUN/CREATININE RATIO 39.8 (5.4-32.0); CALCIUM 7.1 MG/DL (8.5-10.1); CHLORIDE 112 MMOL/L (99-107); CREATININE 2.74 MG/DL (0.60-1.10); GLUCOSE 143 MG/DL (70-104); MAGNESIUM 2.3 MG/DL (1.5-2.4); POTASSIUM 4.7 MMOL/L (3.5-5.1); SODIUM 146 MMOL/L (135-145); TOTAL CARBON DIOXIDE 17.7 MMOL/L (24-32); TOTAL PROTEIN 4.6 G/DL (6.4-8.2); eGFR 23 ML/MIN
[2018-03-05 00:22] LABS: ALANINE AMINOTRANSFERASE 1917 U/L (12-78)
[2018-03-05] MEDS: Dextrose 10%-water IV solution 1,000 ML IV SCH ×2 (00:30→10:55)
[2018-03-05 00:51] LABS: BASOPHILS # (AUTO) 0.8 X10'3 (0-0.2); BASOPHILS % (AUTO) 1.9 % (0-1); EOSINOPHILS # (AUTO) 0.1 X10'3 (0-0.9); EOSINOPHILS % (AUTO) 0.2 % (0-6); HEMOGLOBIN 8.4 g/dl (14.0-17.9); LYMPHOCYTES # (AUTO) 0.6 X10'3 (1.1-4.8); LYMPHOCYTES % (AUTO) 1.4 % (21-51); MEAN CORPUSCULAR HEMOGLOBIN 28.7 PG (27.0-31.0); MEAN CORPUSCULAR HGB CONC 32.4 % (33.0-36.5); MEAN CORPUSCULAR VOLUME 88.6 FL (78-98); MEAN PLATELET VOLUME 9.6 FL (7.4-10.4); MONOCYTES # (AUTO) 0.8 X10'3 (0-0.9); MONOCYTES % (AUTO) 1.8 % (2-12); NEUTROPHILS # (AUTO) 40.3 X10'3 (1.8-7.7); NEUTROPHILS % (AUTO) 94.7 % (42-75); PLATELET COUNT 192 X10'3 (140-440); RED BLOOD COUNT 2.94 X10'6 (4.70-6.10); RED CELL DISTRIBUTION WIDTH 16.1 % (11.5-14.5)
[2018-03-05 01:01] LABS: WHITE BLOOD COUNT 42.6 X10'3 (4.5-11.0)
[2018-03-05 01:22] LABS: ANISOCYTOSIS 1+; PLATELET ESTIMATE NORMAL; TOTAL CELLS COUNTED 100
[2018-03-05 01:41] LABS: ALBUMIN 1.7 G/DL (3.4-5.0); ALBUMIN/GLOBULIN RATIO 0.6 (1.1-1.5); ALKALINE PHOSPHATASE 192 IU/L (46-116); ANION GAP 14 (8-16); ASPARTATE AMINO TRANSFERASE 927 U/L (10-37); BILIRUBIN,TOTAL 1.3 MG/DL (0.1-1.0); BLOOD UREA NITROGEN 104 MG/DL (7-18); BUN/CREATININE RATIO 40.5 (5.4-32.0); CALCIUM 7.3 MG/DL (8.5-10.1); CHLORIDE 112 MMOL/L (99-107); CREATININE 2.57 MG/DL (0.60-1.10); GLUCOSE 144 MG/DL (70-104); MAGNESIUM 2.3 MG/DL (1.5-2.4); POTASSIUM 4.6 MMOL/L (3.5-5.1); PREALBUMIN 11.8 MG/DL (19-36); SODIUM 145 MMOL/L (135-145); TOTAL CARBON DIOXIDE 18.8 MMOL/L (24-32); TOTAL PROTEIN 4.7 G/DL (6.4-8.2); eGFR 25 ML/MIN
[2018-03-05 01:42] LABS: ALANINE AMINOTRANSFERASE 1907 U/L (12-78)
[2018-03-05 01:49] LABS: BASOPHILS # (AUTO) 0.8 X10'3 (0-0.2); BASOPHILS % (AUTO) 1.9 % (0-1); EOSINOPHILS # (AUTO) 0.1 X10'3 (0-0.9); EOSINOPHILS % (AUTO) 0.3 % (0-6); HEMATOCRIT 25.5 % (42.0-52.0); HEMOGLOBIN 8.4 g/dl (14.0-17.9); LYMPHOCYTES # (AUTO) 0.4 X10'3 (1.1-4.8); LYMPHOCYTES % (AUTO) 0.9 % (21-51); MEAN CORPUSCULAR HEMOGLOBIN 29.1 PG (27.0-31.0); MEAN CORPUSCULAR HGB CONC 33.2 % (33.0-36.5); MEAN CORPUSCULAR VOLUME 87.7 FL (78-98); MEAN PLATELET VOLUME 9.6 FL (7.4-10.4); MONOCYTES # (AUTO) 1.3 X10'3 (0-0.9); NEUTROPHILS % (AUTO) 93.9 % (42-75); PLATELET COUNT 173 X10'3 (140-440); RED CELL DISTRIBUTION WIDTH 15.6 % (11.5-14.5)
[2018-03-05 01:57] LABS: WHITE BLOOD COUNT 43.6 X10'3 (4.5-11.0)
[2018-03-05] MEDS: calcium chloride inj. 1,100 MG in Duosol 4k/NO Calcium 5,000 ML IV SCH ×8 (02:10→16:12)
[2018-03-05] MEDS: piperacillin/tazo 3.375gm/50ml 50 ML IV SCH ×4 (02:11→19:28)
[2018-03-05] MEDS: mineral oil/petrolatum ophthal oint EACHEYE SCH ×4 (02:11→19:29)
[2018-03-05] MEDS: ipratropium/albuterol 3ml nebule NEB SCH ×6 (02:34→22:31)
[2018-03-05] MEDS: vasopressin inj. 60 UNIT in normal saline 100ml IV soln 97 ML IV PRN (02:45)
[2018-03-05] MEDS: NORepinephrine 8mg/ 250ml NS 250 ML IV SCH ×5 (02:47→22:34)
--- NOTE | 2018-03-05 03:00 | NUR ---
Mottling to right knee more noticeable, some now present to left knee.
[2018-03-05 04:11] LABS: ANISOCYTOSIS 1+; PLATELET ESTIMATE NORMAL; TOTAL CELLS COUNTED 100
[2018-03-05 04:12] LABS: TOXIC GRANULATION 2+
[2018-03-05 04:26] LABS: ABG BASE EXCESS -10.8 mmol/L (-2.0-3.0); ABG HCO3 15.6 mmol/L (22.0-26.0); ABG OXYGEN SATURATION 96.6 % (95-98); ABG PCO2 (T) 36.9 mmHg (35.0-48.0); ABG PH (T) 7.245 (7.350-7.450); ABG PO2 (T) 102.3 mmHg (83-108); FMetHb 0.3 % (0.3-1.12); FO2Hb 96.3 % (94-100); MINUTE VOLUME 16 L/min; PEEP 5 cm H2O; RESPIRATORY RATE 22 b/min; RESPIRATORY RATE (OBSERVED) 31 b/min; TIDAL VOLUME 518 mL
--- NOTE | 2018-03-05 05:34 | NUR ---
XAVI Maldonado, notified of coffee-ground material in NGT residual and decreased DBP not responding to vasopressors. Verbal order received for albumin.
[2018-03-05] MEDS ORDERED: albumin 25% 50mL bottle 100 ML IV ONE ×2 (05:35→06:40)
[2018-03-05 06:06] LABS: HEMATOCRIT 25.3 % (42.0-52.0); HEMOGLOBIN 8.6 g/dl (14.0-17.9); MEAN CORPUSCULAR HEMOGLOBIN 29.8 PG (27.0-31.0); MEAN CORPUSCULAR HGB CONC 33.9 % (33.0-36.5); MEAN CORPUSCULAR VOLUME 87.8 FL (78-98); MEAN PLATELET VOLUME 9.8 FL (7.4-10.4); PLATELET COUNT 174 X10'3 (140-440); RED BLOOD COUNT 2.88 X10'6 (4.70-6.10); RED CELL DISTRIBUTION WIDTH 15.8 % (11.5-14.5)
--- NOTE | 2018-03-05 06:24 | NUR ---
Problems reprioritized. Patient report given, questions answered & plan of care reviewed with JOHAN Kelley.
[2018-03-05 06:25] LABS: WHITE BLOOD COUNT 44.6 X10'3 (4.5-11.0)
--- NOTE | 2018-03-05 06:26 | NUR ---
Patient in room ICU 2043. I have received report from JOHAN Hays and had the opportunity to ask questions and assume patient care.
[2018-03-05 06:34] LABS: ALBUMIN 1.7 G/DL (3.4-5.0); ALBUMIN/GLOBULIN RATIO 0.6 (1.1-1.5); ALKALINE PHOSPHATASE 200 IU/L (46-116); ANION GAP 17 (8-16); ASPARTATE AMINO TRANSFERASE 725 U/L (10-37); BILIRUBIN,TOTAL 1.4 MG/DL (0.1-1.0); BLOOD UREA NITROGEN 96 MG/DL (7-18); BUN/CREATININE RATIO 39.8 (5.4-32.0); CALCIUM 7.3 MG/DL (8.5-10.1); CHLORIDE 111 MMOL/L (99-107); CREATININE 2.41 MG/DL (0.60-1.10); GLUCOSE 154 MG/DL (70-104); PHOSPHORUS 6.4 MG/DL (2.3-4.5); POTASSIUM 4.4 MMOL/L (3.5-5.1); SODIUM 144 MMOL/L (135-145); TOTAL CARBON DIOXIDE 15.9 MMOL/L (24-32); TOTAL PROTEIN 4.7 G/DL (6.4-8.2); eGFR 27 ML/MIN
[2018-03-05 06:38] LABS: ALANINE AMINOTRANSFERASE 1712 U/L (12-78)
--- NOTE | 2018-03-05 07:05 | NUR ---
CVVH clotted off, pt's WBC in the 40's, HD RN called, instructed to clamp off from pt and she will be in shortly.
[2018-03-05 07:41] LABS: TOTAL CELLS COUNTED 100
[2018-03-05 07:42] LABS: ANISOCYTOSIS 1+; PLATELET ESTIMATE NORMAL; TOXIC GRANULATION 1+
[2018-03-05] MEDS: lactobacillus rhamnosus 10,000 MMU CELLS/CAPSULE PO SCH ×2 (07:47→19:29)
[2018-03-05] MEDS: famotidine/PF 10 mg/ml inj IV SCH ×2 (07:47→19:28)
[2018-03-05] MEDS: atorvastatin 10mg tablet PO SCH (07:48)
[2018-03-05] MEDS: enoxaparin 40mg/0.4ml syringe SUBCUT SCH (07:48)
[2018-03-05] MEDS: methylnaltrexone br 12mg/0.6ml inj***SubQ only SQ SCH (07:48)
[2018-03-05] MEDS: K, MAG and/or Phos replacement - Verify level? MC SCH (07:49)
--- NOTE | 2018-03-05 08:15 | NUR ---
Dr. Guerrero notified that pt's MAP was in the 40's and maxed on pressors with DBP's in the 40's and 30's. Dr. Guerrero gave verbal orders to increase levo as high as needed and will look into the widening of the pulse pressure. Addendum: 03/05/18 at 1731 by Allie Walters RN Yolanda also stated to titrate off of the SBP to be above 90.
[2018-03-05] MEDS: Duosol 4K/3 Ca (w/calcium) 5,000 ML HE SCH ×3 (08:32→08:34)
[2018-03-05] MEDS: normal saline 1000ml 1,000 ML IV SCH ×2 (09:45→22:42)
--- NOTE | 2018-03-05 10:50 | NUR ---
Dr. Guerrero rounded on pt this AM. Pt's pulse pressure has widened considerably overnight causing an increase in pressor requirements. MD ordered Echo for concern possible vegetation. Addressed pt's WBC level and that he has been unable to have the targeted counting done d/t OR yesterday and needing CVVH now. Plan to put off until pt can tolerate coming off of the CVVH. As of right now the only source of infection is from the pneumonia in his lungs which is being addressed with zosyn. ID has been consulted and RN will follow up with them. Sister Calile is at bedside and son Abhijeet was notified after rounds was done. Dr. Guerrero stating that the options are getting limited. RN will follow up with orders.
[2018-03-05] MEDS: insulin regular, human 100 UNIT in normal saline 100ml IV soln 99 ML IV SCH ×2 (12:37)
[2018-03-05] MEDS: sodium bicarbonate (8.4%) inj. 150 MEQ in dextrose 5%-water 1,000 ML IV SCH (13:44)
[2018-03-05 14:50] LABS: BASOPHILS # (AUTO) 0.2 X10'3 (0-0.2); BASOPHILS % (AUTO) 0.4 % (0-1); EOSINOPHILS % (AUTO) 0.1 % (0-6); HEMATOCRIT 22.6 % (42.0-52.0); HEMOGLOBIN 7.4 g/dl (14.0-17.9); LYMPHOCYTES # (AUTO) 0.6 X10'3 (1.1-4.8); LYMPHOCYTES % (AUTO) 1.5 % (21-51); MEAN CORPUSCULAR HEMOGLOBIN 28.5 PG (27.0-31.0); MEAN CORPUSCULAR HGB CONC 32.5 % (33.0-36.5); MEAN CORPUSCULAR VOLUME 87.7 FL (78-98); MEAN PLATELET VOLUME 9.6 FL (7.4-10.4); MONOCYTES # (AUTO) 0.6 X10'3 (0-0.9); MONOCYTES % (AUTO) 1.6 % (2-12); NEUTROPHILS # (AUTO) 36.5 X10'3 (1.8-7.7); NEUTROPHILS % (AUTO) 96.4 % (42-75); PLATELET COUNT 125 X10'3 (140-440); RED BLOOD COUNT 2.58 X10'6 (4.70-6.10); RED CELL DISTRIBUTION WIDTH 16.1 % (11.5-14.5)
[2018-03-05 14:57] LABS: WHITE BLOOD COUNT 37.9 X10'3 (4.5-11.0)
[2018-03-05] MEDS ORDERED: glucagon, human recombinant 1mg kit SUBCUT PRN (15:00)
[2018-03-05] MEDS ORDERED: MESSAGE TO PHARMACY PO ONE (15:00)
[2018-03-05 15:03] LABS: ALBUMIN 1.9 G/DL (3.4-5.0); ANION GAP 20 (8-16); BLOOD UREA NITROGEN 85 MG/DL (7-18); BUN/CREATININE RATIO 37.6 (5.4-32.0); CALCIUM 7.2 MG/DL (8.5-10.1); CHLORIDE 109 MMOL/L (99-107); CREATININE 2.26 MG/DL (0.60-1.10); GLUCOSE 180 MG/DL (70-104); MAGNESIUM 2.2 MG/DL (1.5-2.4); PHOSPHORUS 6.6 MG/DL (2.3-4.5); POTASSIUM 4.1 MMOL/L (3.5-5.1); SODIUM 144 MMOL/L (135-145); TOTAL CARBON DIOXIDE 15.3 MMOL/L (24-32); eGFR 29 ML/MIN
--- NOTE | 2018-03-05 18:15 | NUR ---
Patient in room ICU 2043. I have received report from JOHAN Kelley, and had the opportunity to ask questions and assume patient care.
[2018-03-05] MEDS: polyethylene glycol 3350 17gm powd pack PO SCH (19:29)
--- NOTE | 2018-03-05 19:30 | NUR ---
Son (Abhijeet) calling for update. States will call again later and will try to be by early tomorrow to visit.
[2018-03-05] MEDS: [UNRECOGNIZED DRUG - REMARK] HE SCH ×3 (20:25→22:34)
[2018-03-05] MEDS ORDERED: Duosol 4K/3 Ca (w/calcium) 5,000 ML HE ONE (20:30)
[2018-03-05 20:34] LABS: ALBUMIN 1.9 G/DL (3.4-5.0); ANION GAP 18 (8-16); BLOOD UREA NITROGEN 80 MG/DL (7-18); BUN/CREATININE RATIO 39.6 (5.4-32.0); CALCIUM 7.3 MG/DL (8.5-10.1); CHLORIDE 106 MMOL/L (99-107); CREATININE 2.02 MG/DL (0.60-1.10); GLUCOSE 241 MG/DL (70-104); MAGNESIUM 2.1 MG/DL (1.5-2.4); PHOSPHORUS 5.3 MG/DL (2.3-4.5); POTASSIUM 3.9 MMOL/L (3.5-5.1); SODIUM 140 MMOL/L (135-145); TOTAL CARBON DIOXIDE 16.5 MMOL/L (24-32); eGFR 33 ML/MIN
[2018-03-05 20:35] LABS: BASOPHILS % (AUTO) 0.1 % (0-1); EOSINOPHILS # (AUTO) 0.1 X10'3 (0-0.9); EOSINOPHILS % (AUTO) 0.2 % (0-6); HEMATOCRIT 22.6 % (42.0-52.0); HEMOGLOBIN 7.4 g/dl (14.0-17.9); LYMPHOCYTES # (AUTO) 0.4 X10'3 (1.1-4.8); LYMPHOCYTES % (AUTO) 1.2 % (21-51); MEAN CORPUSCULAR HEMOGLOBIN 28.8 PG (27.0-31.0); MEAN CORPUSCULAR HGB CONC 32.9 % (33.0-36.5); MEAN CORPUSCULAR VOLUME 87.3 FL (78-98); MEAN PLATELET VOLUME 9.5 FL (7.4-10.4); MONOCYTES # (AUTO) 1.5 X10'3 (0-0.9); MONOCYTES % (AUTO) 4.3 % (2-12); NEUTROPHILS # (AUTO) 32.5 X10'3 (1.8-7.7); NEUTROPHILS % (AUTO) 94.2 % (42-75); PLATELET COUNT 134 X10'3 (140-440); RED BLOOD COUNT 2.59 X10'6 (4.70-6.10); RED CELL DISTRIBUTION WIDTH 15.8 % (11.5-14.5)
--- NOTE | 2018-03-05 20:41 | NUR ---
Critical WBC reported by lab: 34.5.
[2018-03-05 20:43] LABS: WHITE BLOOD COUNT 34.5 X10'3 (4.5-11.0)
[2018-03-05 21:01] LABS: CLARITY,URINE CLOUDY (Clear); COLOR,URINE YELLOW (Yellow); GLUCOSE, URINE NEGATIVE (Neg); KETONES,URINE NEGATIVE (Neg); LEUKOCYTE ESTERASE ,URINE LARGE (Neg); NITRITES, URINE NEGATIVE (Neg); OCCULT BLOOD,URINE LARGE (Neg); PROTEIN,URINE >=300 mg/dl (Neg); UROBILINOGEN,URINE 0.2 E.U/dL (0.2-1.0)
[2018-03-05 21:02] LABS: UA COLLECTION TYPE INDWELLING CATH
[2018-03-05 21:07] LABS: URINE AMPHETAMINE SCREEN NEGATIVE (Neg); URINE BARBITUATE SCREEN NEGATIVE (Neg); URINE BENZODIAZEPINES SCREEN POSITIVE (Neg); URINE CANNABINOID SCREEN NEGATIVE (Neg); URINE COCAINE SCREEN NEGATIVE (Neg); URINE METHADONE SCREEN NEGATIVE (Neg); URINE OPIATE SCREEN NEGATIVE (Neg); URINE PHENCYCLIDINE SCREEN NEGATIVE (Neg)
[2018-03-05] MEDS: insulin regular, human vial - multi-dose IV SCH (21:50)
[2018-03-05] MEDS: insulin glargine (Lantus) pen - multi-dose SQ SCH (21:52)
[2018-03-05] MEDS: potassium Cl 20mEq/100mL bag 100 ML IV PRN ×2 (21:54→23:04)
[2018-03-05 22:12] LABS: RBC,URINE 20-50 /HPF (0-2)
[2018-03-05 22:13] LABS: AMORPHOUS URATES 1+; BACTERIA,URINE 2+ /HPF (Neg); MUCUS STRANDS FEW /LPF (Neg); SQUAMOUS EPITHELIAL CELL,UR NONE SEEN /LPF (FEW); TRANSITIONAL EPI CELLS,URINE FEW /HPF; YEAST MODERATE /HPF (NEGATIVE)
[2018-03-06] VITALS (23 sets, daily range): BP systolic 98–134; BP diastolic 31–67
[2018-03-06] MEDS: [UNRECOGNIZED DRUG - REMARK] HE SCH ×8 (00:29→18:26)
[2018-03-06] MEDS: sodium bicarbonate (8.4%) inj. 150 MEQ in dextrose 5%-water 1,000 ML IV SCH ×3 (00:29→23:45)
--- NOTE | 2018-03-06 01:30 | NUR ---
Pt repositioned and linen change provided. When repositioned, scant, fresh bleeding noted to right nare. Able to control bleeding and ensure NGT secured.
--- NOTE | 2018-03-06 02:15 | NUR ---
CVVH machine no longer functioning, unable to return blood to pt. Lakeshia contacted for on-call CVVH support.
[2018-03-06] MEDS: ipratropium/albuterol 3ml nebule NEB SCH ×6 (02:33→22:35)
[2018-03-06] MEDS: mineral oil/petrolatum ophthal oint EACHEYE SCH ×4 (02:38→19:24)
[2018-03-06] MEDS: piperacillin/tazo 3.375gm/50ml 50 ML IV SCH ×4 (02:38→19:24)
[2018-03-06] MEDS: insulin regular, human vial - multi-dose IV SCH (02:43)
[2018-03-06 02:50] LABS: ABG BASE EXCESS -5.7 mmol/L (-2.0-3.0); ABG HCO3 18.6 mmol/L (22.0-26.0); ABG OXYGEN SATURATION 95.2 % (95-98); ABG PCO2 (T) 30.9 mmHg (35.0-48.0); ABG PH (T) 7.395 (7.350-7.450); ABG PO2 (T) 79.7 mmHg (83-108); FCOHb 0.6 % (0.5-1.5); FMetHb 0.1 % (0.3-1.12); FO2Hb 94.5 % (94-100); MINUTE VOLUME 22 L/min; PATIENT TEMPERATURE 36.7; PEEP 5 cm H2O; RESPIRATORY RATE 22 b/min; RESPIRATORY RATE (OBSERVED) 26 b/min; TOTAL HEMOGLOBIN 7.4 G/dl (14.0-18.0)
[2018-03-06 02:59] LABS: ALBUMIN 1.9 G/DL (3.4-5.0); ANION GAP 13 (8-16); BLOOD UREA NITROGEN 73 MG/DL (7-18); BUN/CREATININE RATIO 37.2 (5.4-32.0); CHLORIDE 106 MMOL/L (99-107); CREATININE 1.96 MG/DL (0.60-1.10); GLUCOSE 244 MG/DL (70-104); MAGNESIUM 2.1 MG/DL (1.5-2.4); PHOSPHORUS 4.8 MG/DL (2.3-4.5); POTASSIUM 4.1 MMOL/L (3.5-5.1); SODIUM 139 MMOL/L (135-145); eGFR 34 ML/MIN
--- NOTE | 2018-03-06 03:00 | NUR ---
CVV not running at this time. Lakeshia in to set machine up again.
[2018-03-06 03:16] LABS: BASOPHILS % (AUTO) 0.1 % (0-1); EOSINOPHILS # (AUTO) 0.2 X10'3 (0-0.9); EOSINOPHILS % (AUTO) 0.5 % (0-6); HEMATOCRIT 22.1 % (42.0-52.0); HEMOGLOBIN 7.5 g/dl (14.0-17.9); LYMPHOCYTES # (AUTO) 0.6 X10'3 (1.1-4.8); MEAN CORPUSCULAR HEMOGLOBIN 29.3 PG (27.0-31.0); MEAN CORPUSCULAR HGB CONC 33.8 % (33.0-36.5); MEAN CORPUSCULAR VOLUME 86.4 FL (78-98); MEAN PLATELET VOLUME 9.3 FL (7.4-10.4); MONOCYTES # (AUTO) 1.5 X10'3 (0-0.9); MONOCYTES % (AUTO) 5.1 % (2-12); NEUTROPHILS # (AUTO) 27.7 X10'3 (1.8-7.7); NEUTROPHILS % (AUTO) 92.3 % (42-75); PLATELET COUNT 126 X10'3 (140-440); RED BLOOD COUNT 2.56 X10'6 (4.70-6.10); RED CELL DISTRIBUTION WIDTH 15.1 % (11.5-14.5)
--- NOTE | 2018-03-06 03:40 | NUR ---
CVVH up and running again. UF 243. High venous pressures, sheila repositioned and pressures improved. Running without difficulty at this time.
--- NOTE | 2018-03-06 05:30 | NUR ---
Rectal tube drainage bag changed, 950mL stool output.
--- NOTE | 2018-03-06 06:24 | NUR ---
Problems reprioritized. Patient report given, questions answered & plan of care reviewed with JOHAN Kelley.
[2018-03-06 06:31] LABS: ANISOCYTOSIS 1+; PLATELET ESTIMATE DECREASED; TOTAL CELLS COUNTED 100
[2018-03-06 06:32] LABS: POIKILOCYTOSIS 1+; POLYCHROMASIA 1+
[2018-03-06] MEDS: famotidine/PF 10 mg/ml inj IV SCH ×2 (07:24→19:24)
[2018-03-06] MEDS: lactobacillus rhamnosus 10,000 MMU CELLS/CAPSULE PO SCH ×2 (07:24→19:24)
[2018-03-06] MEDS: enoxaparin 40mg/0.4ml syringe SUBCUT SCH (07:24)
[2018-03-06] MEDS: atorvastatin 10mg tablet PO SCH (07:24)
[2018-03-06] MEDS: NORepinephrine 8mg/ 250ml NS 250 ML IV SCH ×3 (07:49→19:57)
[2018-03-06] MEDS: K, MAG and/or Phos replacement - Verify level? MC SCH (08:00)
[2018-03-06] MEDS: insulin regular, human vial - multi-dose SQ SCH ×3 (08:24→21:35)
[2018-03-06 09:24] LABS: ALBUMIN 1.8 G/DL (3.4-5.0); ANION GAP 12 (8-16); BLOOD UREA NITROGEN 65 MG/DL (7-18); BUN/CREATININE RATIO 38.5 (5.4-32.0); CALCIUM 6.8 MG/DL (8.5-10.1); CHLORIDE 105 MMOL/L (99-107); CREATININE 1.69 MG/DL (0.60-1.10); GLUCOSE 223 MG/DL (70-104); HEMOGLOBIN 7.2 g/dl (14.0-17.9); MAGNESIUM 2.1 MG/DL (1.5-2.4); MEAN CORPUSCULAR HEMOGLOBIN 28.8 PG (27.0-31.0); MEAN CORPUSCULAR HGB CONC 33.3 % (33.0-36.5); MEAN CORPUSCULAR VOLUME 86.5 FL (78-98); MEAN PLATELET VOLUME 9.1 FL (7.4-10.4); PHOSPHORUS 3.9 MG/DL (2.3-4.5); PLATELET COUNT 111 X10'3 (140-440); POTASSIUM 3.8 MMOL/L (3.5-5.1); RED BLOOD COUNT 2.48 X10'6 (4.70-6.10); RED CELL DISTRIBUTION WIDTH 15.6 % (11.5-14.5); SODIUM 138 MMOL/L (135-145); TOTAL CARBON DIOXIDE 20.6 MMOL/L (24-32); eGFR 41 ML/MIN
[2018-03-06 09:31] LABS: HEMATOCRIT 21.5 % (42.0-52.0); WHITE BLOOD COUNT 25.8 X10'3 (4.5-11.0)
[2018-03-06 10:01] LABS: ANISOCYTOSIS 1+; NUCLEATED RED BLOOD CELLS 3 /100WBC (0-0); PLATELET ESTIMATE DECREASED; TOTAL CELLS COUNTED 100
[2018-03-06 10:02] LABS: POIKILOCYTOSIS FEW; POLYCHROMASIA 1+
[2018-03-06] MEDS: potassium Cl 20mEq/100mL bag 100 ML IV PRN ×2 (10:22→12:00)
[2018-03-06 15:02] LABS: BASOPHILS # (AUTO) 0.4 X10'3 (0-0.2); BASOPHILS % (AUTO) 1.6 % (0-1); EOSINOPHILS # (AUTO) 0.3 X10'3 (0-0.9); HEMATOCRIT 22.1 % (42.0-52.0); HEMOGLOBIN 7.2 g/dl (14.0-17.9); LYMPHOCYTES # (AUTO) 0.8 X10'3 (1.1-4.8); LYMPHOCYTES % (AUTO) 2.9 % (21-51); MEAN CORPUSCULAR HEMOGLOBIN 28.5 PG (27.0-31.0); MEAN CORPUSCULAR HGB CONC 32.6 % (33.0-36.5); MEAN CORPUSCULAR VOLUME 87.4 FL (78-98); MEAN PLATELET VOLUME 9.5 FL (7.4-10.4); MONOCYTES % (AUTO) 3.8 % (2-12); NEUTROPHILS # (AUTO) 24.6 X10'3 (1.8-7.7); NEUTROPHILS % (AUTO) 90.7 % (42-75); PLATELET COUNT 115 X10'3 (140-440); RED BLOOD COUNT 2.53 X10'6 (4.70-6.10); RED CELL DISTRIBUTION WIDTH 16.3 % (11.5-14.5)
[2018-03-06 15:05] LABS: WHITE BLOOD COUNT 27.1 X10'3 (4.5-11.0)
[2018-03-06 15:17] LABS: ALBUMIN 1.7 G/DL (3.4-5.0); ANION GAP 10 (8-16); BLOOD UREA NITROGEN 59 MG/DL (7-18); BUN/CREATININE RATIO 36.6 (5.4-32.0); CALCIUM 6.9 MG/DL (8.5-10.1); CHLORIDE 106 MMOL/L (99-107); CREATININE 1.61 MG/DL (0.60-1.10); GLUCOSE 164 MG/DL (70-104); MAGNESIUM 2.2 MG/DL (1.5-2.4); PHOSPHORUS 4.4 MG/DL (2.3-4.5); POTASSIUM 4.6 MMOL/L (3.5-5.1); SODIUM 137 MMOL/L (135-145); TOTAL CARBON DIOXIDE 21.3 MMOL/L (24-32); eGFR 43 ML/MIN
--- NOTE | 2018-03-06 16:11 | NUR ---
reassessment: Pt tolerating TF at goal. Large bowel movement last night per bedside RN. Sodium improved and now WNL. Gastric residuals are low. Currently receiving CRRT, consider changing tube feeding to provide higher protein using Vital HP at 75 ml/hr. No plans for PEG at this time s/p tracheostomy. Will continue to monitor for additional hydration needs. Recommendations: 1) Continuous TF via OG tube with Vital AF with goal rate of 70 mL/hr to provide: total volume of 1680 mL/day, 2016 kcal, 126 g protein, 1361ml water. Consider changing tube feeding to Vital HP at 75 ml/hr in view of increased needs on CRRT. 2) 300 ml water flush q 4 3) Prealbumin q / 4) Daily wt 5) routine bowel care Addendum: 03/06/18 at [address] Amended: Links added.
--- NOTE | 2018-03-06 17:23 | NUR ---
reassessment: Pt tolerating TF at goal. Large bowel movement last night per bedside RN. Sodium improved and now WNL. Gastric residuals are low. Currently receiving CRRT, consider changing tube feeding to provide higher protein using Vital HP at 75 ml/hr. No plans for PEG at this time s/p tracheostomy. Will continue to monitor for additional hydration needs. Recommendations: 1) Consider changing tube feeding to Vital HP per OG tube at 75 ml/hr in view of increased needs on CRRT, d/w RN and MD. 2) Recommend 200 ml water flush q 4 in view of sodium of 137, OK by MD and d/w RN. 3) Prealbumin q / 4) Daily wt 5) routine bowel care Addendum: 03/06/18 at [address] Amended: Links added. Addendum: 03/06/18 at [address] reassessment: Pt tolerating TF at goal. Large bowel movement last night per bedside RN. Sodium improved and now WNL. Gastric residuals are low. Currently receiving CRRT, consider changing tube feeding to provide higher protein using Vital HP at 75 ml/hr. No plans for PEG at this time s/p tracheostomy. Will continue to monitor for additional hydration needs. Recommendations: 1) Consider changing tube feeding to Vital HP per OG tube at 75 ml/hr in view of increased needs on CRRT, d/w RN and MD. 2) Recommend 200 ml water flush q 4 in view of sodium of 137, OK by MD and d/w RN. 3) Prealbumin q / 4) Daily wt 5) routine bowel care
--- NOTE | 2018-03-06 18:33 | NUR ---
Patient in room ICU 2043. I have received report from JOHAN Kelley, and had the opportunity to ask questions and assume patient care.
[2018-03-06] MEDS: polyethylene glycol 3350 17gm powd pack PO SCH (19:24)
[2018-03-06] MEDS: normal saline 1000ml 1,000 ML IV SCH (19:25)
[2018-03-06 20:46] LABS: BASOPHILS # (AUTO) 0.1 X10'3 (0-0.2); BASOPHILS % (AUTO) 0.3 % (0-1); EOSINOPHILS # (AUTO) 0.2 X10'3 (0-0.9); EOSINOPHILS % (AUTO) 0.7 % (0-6); LYMPHOCYTES # (AUTO) 0.9 X10'3 (1.1-4.8); LYMPHOCYTES % (AUTO) 3.2 % (21-51); MEAN CORPUSCULAR HEMOGLOBIN 29.3 PG (27.0-31.0); MEAN CORPUSCULAR HGB CONC 33.8 % (33.0-36.5); MEAN CORPUSCULAR VOLUME 86.8 FL (78-98); MEAN PLATELET VOLUME 9.6 FL (7.4-10.4); MONOCYTES # (AUTO) 1.7 X10'3 (0-0.9); MONOCYTES % (AUTO) 5.8 % (2-12); NEUTROPHILS # (AUTO) 25.8 X10'3 (1.8-7.7); PLATELET COUNT 104 X10'3 (140-440); RED BLOOD COUNT 2.38 X10'6 (4.70-6.10); RED CELL DISTRIBUTION WIDTH 16.4 % (11.5-14.5)
[2018-03-06 20:52] LABS: WHITE BLOOD COUNT 28.7 X10'3 (4.5-11.0)
[2018-03-06 20:53] LABS: HEMATOCRIT 20.7 % (42.0-52.0)
[2018-03-06 20:56] LABS: ALBUMIN 1.7 G/DL (3.4-5.0); ANION GAP 9 (8-16); BLOOD UREA NITROGEN 54 MG/DL (7-18); BUN/CREATININE RATIO 37.8 (5.4-32.0); CALCIUM 6.7 MG/DL (8.5-10.1); CHLORIDE 105 MMOL/L (99-107); CREATININE 1.43 MG/DL (0.60-1.10); GLUCOSE 152 MG/DL (70-104); MAGNESIUM 2.1 MG/DL (1.5-2.4); PHOSPHORUS 3.6 MG/DL (2.3-4.5); POTASSIUM 4.3 MMOL/L (3.5-5.1); SODIUM 137 MMOL/L (135-145); eGFR 49 ML/MIN
[2018-03-06] MEDS: insulin glargine (Lantus) pen - multi-dose SQ SCH (21:37)
[2018-03-07] VITALS (26 sets, daily range): BP systolic 96–126; BP diastolic 40–60
[2018-03-07] MEDS: [UNRECOGNIZED DRUG - REMARK] HE SCH ×13 (00:23→23:04)
[2018-03-07] MEDS: normal saline 1000ml 1,000 ML IV SCH ×2 (01:44→13:37)
[2018-03-07] MEDS: piperacillin/tazo 3.375gm/50ml 50 ML IV SCH ×4 (01:58→19:41)
[2018-03-07] MEDS: mineral oil/petrolatum ophthal oint EACHEYE SCH ×4 (01:59→19:42)
[2018-03-07] MEDS: NORepinephrine 8mg/ 250ml NS 250 ML IV SCH ×3 (02:07→18:42)
[2018-03-07] MEDS: insulin regular, human vial - multi-dose SQ SCH ×4 (02:11→20:14)
[2018-03-07] MEDS: ipratropium/albuterol 3ml nebule NEB SCH ×6 (02:42→22:39)
[2018-03-07 02:54] LABS: BASOPHILS # (AUTO) 0.1 X10'3 (0-0.2); BASOPHILS % (AUTO) 0.2 % (0-1); EOSINOPHILS # (AUTO) 0.2 X10'3 (0-0.9); EOSINOPHILS % (AUTO) 0.5 % (0-6); LYMPHOCYTES # (AUTO) 0.7 X10'3 (1.1-4.8); LYMPHOCYTES % (AUTO) 2.2 % (21-51); MEAN CORPUSCULAR HEMOGLOBIN 28.5 PG (27.0-31.0); MEAN CORPUSCULAR HGB CONC 32.4 % (33.0-36.5); MEAN CORPUSCULAR VOLUME 87.9 FL (78-98); MEAN PLATELET VOLUME 9.8 FL (7.4-10.4); MONOCYTES # (AUTO) 0.5 X10'3 (0-0.9); MONOCYTES % (AUTO) 1.5 % (2-12); NEUTROPHILS # (AUTO) 28.9 X10'3 (1.8-7.7); NEUTROPHILS % (AUTO) 95.6 % (42-75); PLATELET COUNT 95 X10'3 (140-440); RED BLOOD COUNT 2.41 X10'6 (4.70-6.10); RED CELL DISTRIBUTION WIDTH 16.6 % (11.5-14.5)
[2018-03-07 02:55] LABS: ALBUMIN 1.6 G/DL (3.4-5.0); ANION GAP 8 (8-16); BLOOD UREA NITROGEN 47 MG/DL (7-18); BUN/CREATININE RATIO 32.6 (5.4-32.0); CALCIUM 6.8 MG/DL (8.5-10.1); CHLORIDE 104 MMOL/L (99-107); CREATININE 1.44 MG/DL (0.60-1.10); GLUCOSE 128 MG/DL (70-104); MAGNESIUM 2.2 MG/DL (1.5-2.4); PHOSPHORUS 4.5 MG/DL (2.3-4.5); POTASSIUM 4.6 MMOL/L (3.5-5.1); SODIUM 136 MMOL/L (135-145); TOTAL CARBON DIOXIDE 24.4 MMOL/L (24-32); eGFR 49 ML/MIN
[2018-03-07] MEDS: vasopressin inj. 60 UNIT in normal saline 100ml IV soln 97 ML IV PRN (02:59)
[2018-03-07 03:15] LABS: HEMATOCRIT 21.2 % (42.0-52.0); HEMOGLOBIN 6.9 g/dl (14.0-17.9); WHITE BLOOD COUNT 30.4 X10'3 (4.5-11.0)
[2018-03-07 03:20] LABS: ABG BASE EXCESS -3.5 mmol/L (-2.0-3.0); ABG HCO3 23.1 mmol/L (22.0-26.0); ABG OXYGEN SATURATION 84.8 % (95-98); ABG PCO2 (T) 49.9 mmHg (35.0-48.0); ABG PH (T) 7.281 (7.350-7.450); ABG PO2 (T) 53.8 mmHg (83-108); FCOHb 1.3 % (0.5-1.5); FMetHb 0.3 % (0.3-1.12); FO2Hb 83.4 % (94-100); MINUTE VOLUME 14 L/min; PATIENT TEMPERATURE 36.7; PEEP 5 cm H2O; RESPIRATORY RATE 0 b/min; TOTAL HEMOGLOBIN 7.3 G/dl (14.0-18.0)
[2018-03-07 03:41] LABS: NUCLEATED RED BLOOD CELLS 4 /100WBC (0-0); TOTAL CELLS COUNTED 100
[2018-03-07 03:42] LABS: ANISOCYTOSIS 1+; PLATELET ESTIMATE DECREASED; POLYCHROMASIA FEW
--- NOTE | 2018-03-07 04:06 | NUR ---
Critical H/H reported to XAVI Thorpe. No new orders placed at this time.
--- NOTE | 2018-03-07 04:40 | NUR ---
XAVI Thorpe, contacted son (Abhijeet) and received verbal consent to administer blood products. This consent was verified by JOHAN Hays. All questions answered, and son informed of risks, benefits, and complications of blood product administration. Orders placed for PRBC.
--- NOTE | 2018-03-07 05:40 | NUR ---
Blood administration initiated.
--- NOTE | 2018-03-07 05:55 | NUR ---
No s/s of transfusion rxn, LS have coarse rhonchi throughout, VSS, no rash, no increased WOB, SOB, or other s/s's. Rate increased to 180 mL/hr.
--- NOTE | 2018-03-07 06:30 | NUR ---
Problems reprioritized. Patient report given, questions answered & plan of care reviewed with JOHAN Molina.
[2018-03-07] MEDS: enoxaparin 40mg/0.4ml syringe SUBCUT SCH (07:50)
[2018-03-07] MEDS: famotidine/PF 10 mg/ml inj IV SCH ×2 (07:50→19:41)
[2018-03-07] MEDS: atorvastatin 10mg tablet PO SCH (07:51)
[2018-03-07] MEDS: methylnaltrexone br 12mg/0.6ml inj***SubQ only SQ SCH (07:51)
[2018-03-07] MEDS: lactobacillus rhamnosus 10,000 MMU CELLS/CAPSULE PO SCH ×2 (07:51→19:40)
[2018-03-07] MEDS: K, MAG and/or Phos replacement - Verify level? MC SCH (07:52)
[2018-03-07 09:23] LABS: HEMATOCRIT 24.8 % (42.0-52.0); HEMOGLOBIN 8.4 g/dl (14.0-17.9); MEAN CORPUSCULAR HEMOGLOBIN 29.1 PG (27.0-31.0); MEAN CORPUSCULAR HGB CONC 33.7 % (33.0-36.5); MEAN CORPUSCULAR VOLUME 86.4 FL (78-98); MEAN PLATELET VOLUME 9.3 FL (7.4-10.4); PLATELET COUNT 72 X10'3 (140-440); RED BLOOD COUNT 2.87 X10'6 (4.70-6.10)
[2018-03-07 09:28] LABS: ALBUMIN 1.7 G/DL (3.4-5.0); ANION GAP 10 (8-16); BLOOD UREA NITROGEN 42 MG/DL (7-18); BUN/CREATININE RATIO 34.1 (5.4-32.0); CALCIUM 6.9 MG/DL (8.5-10.1); CHLORIDE 104 MMOL/L (99-107); CREATININE 1.23 MG/DL (0.60-1.10); GLUCOSE 101 MG/DL (70-104); PHOSPHORUS 2.8 MG/DL (2.3-4.5); POTASSIUM 4.3 MMOL/L (3.5-5.1); SODIUM 138 MMOL/L (135-145); TOTAL CARBON DIOXIDE 24.2 MMOL/L (24-32); eGFR 59 ML/MIN
[2018-03-07 09:53] LABS: WHITE BLOOD COUNT 35.2 X10'3 (4.5-11.0)
[2018-03-07 09:55] LABS: ANISOCYTOSIS 1+; NUCLEATED RED BLOOD CELLS 1 /100WBC (0-0); PLATELET ESTIMATE DECREASED; TOTAL CELLS COUNTED 100
[2018-03-07 09:56] LABS: HYPOCHROMASIA 1+; POLYCHROMASIA 2+; TOXIC GRANULATION 1+; TOXIC VACUOLATION 1+
--- NOTE | 2018-03-07 11:36 | NUR ---
Reassessment: Patient's TF formula has been changed to Vital High Protein this AM at rate of 38 mL/hr, noted that pt with residuals of 300 mL. Pt with Relistor PRN. No new documented BM, pt with routine Miralax last received 03/06. Will continue to follow. Recommendations: 1) Consider changing tube feeding to Vital HP per OG tube at 75 ml/hr in view of increased needs on CRRT, d/w RN and MD. 2) Recommend 200 ml water flush q 4 in view of sodium of 137, OK by MD and d/w RN. 3) Prealbumin q / 4) Daily wt 5) routine bowel care Addendum: 03/07/18 at [address] Amended: Links added.
[2018-03-07] MEDS ORDERED: heparin 1,000 units/ml 10ml inj HE ONE ×2 (12:45)
[2018-03-07 13:39] LABS: C DIFF ANTIGEN NEGATIVE (NEGATIVE); C DIFF SPECIMEN=DIARRHEA? ACCEPTABLE; C DIFFICILE TOXINS A&B NEGATIVE (Neg)
[2018-03-07] MEDS: hydrocortisone sod succ/PF 100mg/2ml inj. IV SCH ×2 (13:41→19:41)
[2018-03-07 14:28] LABS: BASOPHILS # (AUTO) 0.4 X10'3 (0-0.2); BASOPHILS % (AUTO) 1.2 % (0-1); EOSINOPHILS # (AUTO) 0.3 X10'3 (0-0.9); EOSINOPHILS % (AUTO) 0.9 % (0-6); HEMATOCRIT 24.5 % (42.0-52.0); HEMOGLOBIN 8.1 g/dl (14.0-17.9); LYMPHOCYTES # (AUTO) 0.7 X10'3 (1.1-4.8); LYMPHOCYTES % (AUTO) 2.1 % (21-51); MEAN CORPUSCULAR HEMOGLOBIN 28.8 PG (27.0-31.0); MEAN CORPUSCULAR HGB CONC 33.1 % (33.0-36.5); MEAN PLATELET VOLUME 9.2 FL (7.4-10.4); MONOCYTES # (AUTO) 0.5 X10'3 (0-0.9); MONOCYTES % (AUTO) 1.5 % (2-12); NEUTROPHILS # (AUTO) 32.8 X10'3 (1.8-7.7); NEUTROPHILS % (AUTO) 94.3 % (42-75); PLATELET COUNT 58 X10'3 (140-440); RED BLOOD COUNT 2.82 X10'6 (4.70-6.10); RED CELL DISTRIBUTION WIDTH 15.2 % (11.5-14.5)
[2018-03-07 14:39] LABS: ALBUMIN 1.6 G/DL (3.4-5.0); ANION GAP 10 (8-16); BLOOD UREA NITROGEN 45 MG/DL (7-18); BUN/CREATININE RATIO 34.1 (5.4-32.0); CALCIUM 6.5 MG/DL (8.5-10.1); CHLORIDE 105 MMOL/L (99-107); CREATININE 1.32 MG/DL (0.60-1.10); GLUCOSE 102 MG/DL (70-104); MAGNESIUM 1.9 MG/DL (1.5-2.4); PHOSPHORUS 2.7 MG/DL (2.3-4.5); POTASSIUM 4.2 MMOL/L (3.5-5.1); SODIUM 139 MMOL/L (135-145); TOTAL CARBON DIOXIDE 24.1 MMOL/L (24-32); eGFR 54 ML/MIN
[2018-03-07 14:57] LABS: WHITE BLOOD COUNT 34.7 X10'3 (4.5-11.0)
--- NOTE | 2018-03-07 18:22 | NUR ---
Report given to night worker RN. Pt stable.
--- NOTE | 2018-03-07 18:22 | NUR ---
Patient in room ICU 2043. I have received report from JOHAN Molina, and had the opportunity to ask questions and assume patient care.
[2018-03-07] MEDS: polyethylene glycol 3350 17gm powd pack PO SCH (19:40)
[2018-03-07] MEDS: insulin glargine (Lantus) pen - multi-dose SQ SCH (20:16)
[2018-03-07 20:38] LABS: ALBUMIN 1.6 G/DL (3.4-5.0); ANION GAP 12 (8-16); BLOOD UREA NITROGEN 44 MG/DL (7-18); BUN/CREATININE RATIO 34.9 (5.4-32.0); CHLORIDE 105 MMOL/L (99-107); CREATININE 1.26 MG/DL (0.60-1.10); GLUCOSE 136 MG/DL (70-104); MAGNESIUM 2.1 MG/DL (1.5-2.4); PHOSPHORUS 2.5 MG/DL (2.3-4.5); POTASSIUM 4.2 MMOL/L (3.5-5.1); SODIUM 139 MMOL/L (135-145); TOTAL CARBON DIOXIDE 22.5 MMOL/L (24-32); eGFR 57 ML/MIN
[2018-03-07 20:41] LABS: BASOPHILS # (AUTO) 0.1 X10'3 (0-0.2); BASOPHILS % (AUTO) 0.2 % (0-1); EOSINOPHILS # (AUTO) 0.1 X10'3 (0-0.9); EOSINOPHILS % (AUTO) 0.3 % (0-6); HEMATOCRIT 24.1 % (42.0-52.0); HEMOGLOBIN 7.9 g/dl (14.0-17.9); LYMPHOCYTES # (AUTO) 0.4 X10'3 (1.1-4.8); LYMPHOCYTES % (AUTO) 1.1 % (21-51); MEAN CORPUSCULAR HEMOGLOBIN 28.8 PG (27.0-31.0); MEAN CORPUSCULAR HGB CONC 32.8 % (33.0-36.5); MEAN CORPUSCULAR VOLUME 87.8 FL (78-98); MEAN PLATELET VOLUME 9.1 FL (7.4-10.4); MONOCYTES # (AUTO) 1.1 X10'3 (0-0.9); MONOCYTES % (AUTO) 3.3 % (2-12); NEUTROPHILS # (AUTO) 31.9 X10'3 (1.8-7.7); NEUTROPHILS % (AUTO) 95.1 % (42-75); RED BLOOD COUNT 2.75 X10'6 (4.70-6.10); RED CELL DISTRIBUTION WIDTH 15.3 % (11.5-14.5)
[2018-03-07 20:47] LABS: WHITE BLOOD COUNT 33.6 X10'3 (4.5-11.0)
[2018-03-07 20:48] LABS: PLATELET COUNT 47 X10'3 (140-440)
--- NOTE | 2018-03-07 21:30 | NUR ---
Fine, widespread rash with pustules noted over left thigh, left back, and right upper back. Also noted across upper abdomen and chest.
--- NOTE | 2018-03-07 21:58 | NUR ---
XAVI Thorpe, at bedside to assess rash.
[2018-03-07] MEDS ORDERED: diphenhydrAMINE 50 mg/ml inj IV ONE (22:10)
[2018-03-08] VITALS (25 sets, daily range): BP systolic 98–142; BP diastolic 42–66
[2018-03-08] MEDS: NORepinephrine 8mg/ 250ml NS 250 ML IV SCH ×3 (00:53→16:56)
[2018-03-08] MEDS: [UNRECOGNIZED DRUG - REMARK] HE SCH ×13 (00:53→23:49)
[2018-03-08] MEDS: mineral oil/petrolatum ophthal oint EACHEYE SCH ×4 (01:05→19:47)
[2018-03-08] MEDS: piperacillin/tazo 3.375gm/50ml 50 ML IV SCH ×4 (01:05→19:47)
[2018-03-08] MEDS: hydrocortisone sod succ/PF 100mg/2ml inj. IV SCH ×4 (01:08→19:47)
[2018-03-08] MEDS: insulin regular, human vial - multi-dose SQ SCH ×4 (01:49→22:49)
[2018-03-08 02:36] LABS: ALANINE AMINOTRANSFERASE 812 U/L (12-78); ALBUMIN 1.6 G/DL (3.4-5.0); ALBUMIN/GLOBULIN RATIO 0.6 (1.1-1.5); ALKALINE PHOSPHATASE 195 IU/L (46-116); ANION GAP 10 (8-16); ASPARTATE AMINO TRANSFERASE 614 U/L (10-37); BILIRUBIN,TOTAL 3.2 MG/DL (0.1-1.0); BLOOD UREA NITROGEN 40 MG/DL (7-18); BUN/CREATININE RATIO 34.5 (5.4-32.0); CHLORIDE 104 MMOL/L (99-107); CREATININE 1.16 MG/DL (0.60-1.10); GLUCOSE 124 MG/DL (70-104); POTASSIUM 4.3 MMOL/L (3.5-5.1); SODIUM 138 MMOL/L (135-145); TOTAL PROTEIN 4.2 G/DL (6.4-8.2); eGFR 63 ML/MIN
[2018-03-08 02:47] LABS: BASOPHILS % (AUTO) 0.1 % (0-1); EOSINOPHILS % (AUTO) 0.1 % (0-6); HEMATOCRIT 23.6 % (42.0-52.0); HEMOGLOBIN 7.9 g/dl (14.0-17.9); LYMPHOCYTES # (AUTO) 0.8 X10'3 (1.1-4.8); LYMPHOCYTES % (AUTO) 2.4 % (21-51); MEAN CORPUSCULAR HEMOGLOBIN 29.2 PG (27.0-31.0); MEAN CORPUSCULAR HGB CONC 33.3 % (33.0-36.5); MEAN CORPUSCULAR VOLUME 87.9 FL (78-98); MEAN PLATELET VOLUME 9.1 FL (7.4-10.4); MONOCYTES % (AUTO) 3.1 % (2-12); NEUTROPHILS # (AUTO) 31.7 X10'3 (1.8-7.7); NEUTROPHILS % (AUTO) 94.3 % (42-75); RED BLOOD COUNT 2.69 X10'6 (4.70-6.10); RED CELL DISTRIBUTION WIDTH 15.6 % (11.5-14.5)
[2018-03-08 02:51] LABS: WHITE BLOOD COUNT 33.5 X10'3 (4.5-11.0)
[2018-03-08 02:53] LABS: INR 1.7 INR; PARTIAL THROMBOPLASTIN TIME 44 SECONDS (22-32); PLATELET COUNT 45 X10'3 (140-440); PROTHROMBIN TIME 16.5 SECONDS (9.0-12.0)
[2018-03-08] MEDS: ipratropium/albuterol 3ml nebule NEB SCH ×6 (03:12→22:39)
[2018-03-08 03:33] LABS: PHOSPHORUS 2.4 MG/DL (2.3-4.5)
[2018-03-08 03:52] LABS: ANISOCYTOSIS 1+; NUCLEATED RED BLOOD CELLS 5 /100WBC (0-0); PLATELET ESTIMATE NORMAL; POLYCHROMASIA FEW; TOTAL CELLS COUNTED 100
[2018-03-08] MEDS: normal saline 1000ml 1,000 ML IV SCH ×2 (04:25→18:59)
[2018-03-08 04:26] LABS: ABG BASE EXCESS 0.1 mmol/L (-2.0-3.0); ABG HCO3 22.4 mmol/L (22.0-26.0); ABG PCO2 (T) 27.3 mmHg (35.0-48.0); ABG PH (T) 7.531 (7.350-7.450); ABG PO2 (T) 80.5 mmHg (83-108); FCOHb 0.7 % (0.5-1.5); FO2Hb 95.3 % (94-100); MINUTE VOLUME 23 L/min; PATIENT TEMPERATURE 37.1; PEEP 5 cm H2O; RESPIRATORY RATE 22 b/min; RESPIRATORY RATE (OBSERVED) 25 b/min
--- NOTE | 2018-03-08 05:15 | NUR ---
CV machine down. [place] contacted for assistance.
--- NOTE | 2018-03-08 06:20 | NUR ---
Problems reprioritized. Patient report given, questions answered & plan of care reviewed with JOHAN Adams.
[2018-03-08] MEDS: atorvastatin 10mg tablet PO SCH (07:01)
[2018-03-08] MEDS: lactobacillus rhamnosus 10,000 MMU CELLS/CAPSULE PO SCH ×2 (07:01→19:46)
[2018-03-08] MEDS: famotidine/PF 10 mg/ml inj IV SCH ×2 (07:01→19:46)
[2018-03-08] MEDS: enoxaparin 40mg/0.4ml syringe SUBCUT SCH (08:00)
[2018-03-08] MEDS: K, MAG and/or Phos replacement - Verify level? MC SCH (08:00)
[2018-03-08 08:25] LABS: HEMOGLOBIN 7.2 g/dl (14.0-17.9); MEAN CORPUSCULAR HEMOGLOBIN 29.7 PG (27.0-31.0); MEAN CORPUSCULAR VOLUME 87.4 FL (78-98); MEAN PLATELET VOLUME 9.1 FL (7.4-10.4); RED BLOOD COUNT 2.41 X10'6 (4.70-6.10); RED CELL DISTRIBUTION WIDTH 15.7 % (11.5-14.5)
[2018-03-08 08:36] LABS: WHITE BLOOD COUNT 29.7 X10'3 (4.5-11.0)
[2018-03-08 08:37] LABS: HEMATOCRIT 21.1 % (42.0-52.0); PLATELET COUNT 38 X10'3 (140-440)
[2018-03-08 08:41] LABS: ALBUMIN 1.4 G/DL (3.4-5.0); ANION GAP 9 (8-16); BLOOD UREA NITROGEN 39 MG/DL (7-18); BUN/CREATININE RATIO 33.1 (5.4-32.0); CALCIUM 6.4 MG/DL (8.5-10.1); CHLORIDE 107 MMOL/L (99-107); CREATININE 1.18 MG/DL (0.60-1.10); GLUCOSE 148 MG/DL (70-104); PHOSPHORUS 2.2 MG/DL (2.3-4.5); SODIUM 140 MMOL/L (135-145); TOTAL CARBON DIOXIDE 23.7 MMOL/L (24-32); eGFR 61 ML/MIN
[2018-03-08 09:15] LABS: TOTAL CELLS COUNTED 100
[2018-03-08 09:17] LABS: ANISOCYTOSIS 1+; PLATELET ESTIMATE DECREASED; POLYCHROMASIA 1+
[2018-03-08 09:18] LABS: TEAR DROP CELLS FEW
[2018-03-08] MEDS ORDERED: fentaNYL/PF 50MCG/1 ML 2ML syringe ONE (10:29)
[2018-03-08] MEDS ORDERED: fentaNYL/PF 50MCG/1 ML 2ML syringe IV ONE (10:45)
[2018-03-08 15:07] LABS: BASOPHILS # (AUTO) 0.1 X10'3 (0-0.2); BASOPHILS % (AUTO) 0.2 % (0-1); EOSINOPHILS % (AUTO) 0.1 % (0-6); HEMATOCRIT 22.4 % (42.0-52.0); HEMOGLOBIN 7.4 g/dl (14.0-17.9); LYMPHOCYTES # (AUTO) 0.9 X10'3 (1.1-4.8); LYMPHOCYTES % (AUTO) 3.2 % (21-51); MEAN CORPUSCULAR HEMOGLOBIN 29.2 PG (27.0-31.0); MEAN CORPUSCULAR HGB CONC 33.2 % (33.0-36.5); MEAN PLATELET VOLUME 9.7 FL (7.4-10.4); MONOCYTES # (AUTO) 0.8 X10'3 (0-0.9); MONOCYTES % (AUTO) 2.7 % (2-12); NEUTROPHILS # (AUTO) 27.8 X10'3 (1.8-7.7); NEUTROPHILS % (AUTO) 93.8 % (42-75); RED BLOOD COUNT 2.55 X10'6 (4.70-6.10)
[2018-03-08 15:10] LABS: WHITE BLOOD COUNT 29.6 X10'3 (4.5-11.0)
[2018-03-08 15:11] LABS: PLATELET COUNT 40 X10'3 (140-440)
[2018-03-08 15:21] LABS: ALBUMIN 1.5 G/DL (3.4-5.0); ANION GAP 11 (8-16); BLOOD UREA NITROGEN 39 MG/DL (7-18); BUN/CREATININE RATIO 34.5 (5.4-32.0); CALCIUM 6.9 MG/DL (8.5-10.1); CHLORIDE 105 MMOL/L (99-107); CREATININE 1.13 MG/DL (0.60-1.10); GLUCOSE 168 MG/DL (70-104); MAGNESIUM 2.2 MG/DL (1.5-2.4); PHOSPHORUS 2.3 MG/DL (2.3-4.5); POTASSIUM 4.1 MMOL/L (3.5-5.1); SODIUM 139 MMOL/L (135-145); TOTAL CARBON DIOXIDE 23.2 MMOL/L (24-32); eGFR 65 ML/MIN
--- NOTE | 2018-03-08 18:20 | NUR ---
Patient in room ICU 2043. I have received report from JOHAN Adams, and had the opportunity to ask questions and assume patient care. Pt resting in bed with eyes open, turning head towards verbal stimuli, able to nod and shake head in response to simple questions. VSS, NAD. CVVH running w/o difficulty or issue.
[2018-03-08] MEDS: polyethylene glycol 3350 17gm powd pack PO SCH (19:47)
[2018-03-08 19:54] LABS: BASOPHILS # (AUTO) 0.1 X10'3 (0-0.2); BASOPHILS % (AUTO) 0.3 % (0-1); EOSINOPHILS % (AUTO) 0.1 % (0-6); HEMATOCRIT 22.2 % (42.0-52.0); HEMOGLOBIN 7.4 g/dl (14.0-17.9); LYMPHOCYTES # (AUTO) 0.7 X10'3 (1.1-4.8); LYMPHOCYTES % (AUTO) 2.5 % (21-51); MEAN CORPUSCULAR HEMOGLOBIN 28.9 PG (27.0-31.0); MEAN CORPUSCULAR HGB CONC 33.1 % (33.0-36.5); MEAN CORPUSCULAR VOLUME 87.3 FL (78-98); MEAN PLATELET VOLUME 8.8 FL (7.4-10.4); MONOCYTES # (AUTO) 0.8 X10'3 (0-0.9); MONOCYTES % (AUTO) 3.1 % (2-12); NEUTROPHILS # (AUTO) 24.4 X10'3 (1.8-7.7); RED BLOOD COUNT 2.55 X10'6 (4.70-6.10); RED CELL DISTRIBUTION WIDTH 15.8 % (11.5-14.5)
[2018-03-08 19:59] LABS: PLATELET COUNT 34 X10'3 (140-440)
[2018-03-08 20:08] LABS: ALBUMIN 1.5 G/DL (3.4-5.0); ANION GAP 12 (8-16); BLOOD UREA NITROGEN 39 MG/DL (7-18); BUN/CREATININE RATIO 33.6 (5.4-32.0); CALCIUM 6.9 MG/DL (8.5-10.1); CHLORIDE 106 MMOL/L (99-107); CREATININE 1.16 MG/DL (0.60-1.10); GLUCOSE 191 MG/DL (70-104); MAGNESIUM 2.2 MG/DL (1.5-2.4); PHOSPHORUS 2.3 MG/DL (2.3-4.5); POTASSIUM 4.1 MMOL/L (3.5-5.1); SODIUM 140 MMOL/L (135-145); eGFR 63 ML/MIN
[2018-03-08] MEDS: insulin glargine (Lantus) pen - multi-dose SQ SCH (22:50)
[2018-03-09] VITALS (24 sets, daily range): BP systolic 93–127; BP diastolic 44–60
[2018-03-09] MEDS: NORepinephrine 8mg/ 250ml NS 250 ML IV SCH ×2 (00:40→08:01)
[2018-03-09] MEDS: piperacillin/tazo 3.375gm/50ml 50 ML IV SCH ×4 (01:46→19:21)
[2018-03-09] MEDS: mineral oil/petrolatum ophthal oint EACHEYE SCH ×4 (01:48→19:20)
[2018-03-09] MEDS: hydrocortisone sod succ/PF 100mg/2ml inj. IV SCH ×4 (01:48→19:20)
[2018-03-09] MEDS: [UNRECOGNIZED DRUG - REMARK] HE SCH ×12 (01:48→23:29)
[2018-03-09] MEDS: insulin regular, human vial - multi-dose SQ SCH ×3 (01:53→20:43)
[2018-03-09] MEDS: ipratropium/albuterol 3ml nebule NEB SCH ×6 (02:31→23:26)
[2018-03-09 03:14] LABS: BASOPHILS % (AUTO) 0.1 % (0-1); EOSINOPHILS % (AUTO) 0.2 % (0-6); HEMOGLOBIN 7.1 g/dl (14.0-17.9); LYMPHOCYTES # (AUTO) 0.8 X10'3 (1.1-4.8); LYMPHOCYTES % (AUTO) 3.7 % (21-51); MEAN CORPUSCULAR HEMOGLOBIN 29.2 PG (27.0-31.0); MEAN CORPUSCULAR HGB CONC 33.1 % (33.0-36.5); MEAN CORPUSCULAR VOLUME 88.3 FL (78-98); MEAN PLATELET VOLUME 9.6 FL (7.4-10.4); MONOCYTES # (AUTO) 0.8 X10'3 (0-0.9); MONOCYTES % (AUTO) 3.8 % (2-12); NEUTROPHILS # (AUTO) 20.4 X10'3 (1.8-7.7); NEUTROPHILS % (AUTO) 92.2 % (42-75); RED BLOOD COUNT 2.44 X10'6 (4.70-6.10); RED CELL DISTRIBUTION WIDTH 16.9 % (11.5-14.5)
[2018-03-09 03:17] LABS: HEMATOCRIT 21.5 % (42.0-52.0); PLATELET COUNT 41 X10'3 (140-440)
[2018-03-09 03:20] LABS: ABG BASE EXCESS 0.4 mmol/L (-2.0-3.0); ABG HCO3 22.7 mmol/L (22.0-26.0); ABG OXYGEN SATURATION 91.2 % (95-98); ABG PCO2 (T) 27.6 mmHg (35.0-48.0); ABG PH (T) 7.533 (7.350-7.450); ABG PO2 (T) 57.1 mmHg (83-108); FMetHb 0.2 % (0.3-1.12); FO2Hb 90.1 % (94-100); MINUTE VOLUME 25 L/min; PATIENT TEMPERATURE 37.2; PEEP 5 cm H2O; RESPIRATORY RATE 22 b/min; RESPIRATORY RATE (OBSERVED) 24 b/min; TOTAL HEMOGLOBIN 7.6 G/dl (14.0-18.0)
[2018-03-09 03:46] LABS: INR 1.4 INR; PARTIAL THROMBOPLASTIN TIME 39 SECONDS (22-32); PROTHROMBIN TIME 14.4 SECONDS (9.0-12.0)
[2018-03-09 03:51] LABS: ALANINE AMINOTRANSFERASE 579 U/L (12-78); ALBUMIN 1.4 G/DL (3.4-5.0); ALBUMIN/GLOBULIN RATIO 0.5 (1.1-1.5); ALKALINE PHOSPHATASE 196 IU/L (46-116); ANION GAP 12 (8-16); ASPARTATE AMINO TRANSFERASE 382 U/L (10-37); BILIRUBIN,TOTAL 2.9 MG/DL (0.1-1.0); BLOOD UREA NITROGEN 38 MG/DL (7-18); BUN/CREATININE RATIO 35.8 (5.4-32.0); CALCIUM 6.9 MG/DL (8.5-10.1); CHLORIDE 105 MMOL/L (99-107); CREATININE 1.06 MG/DL (0.60-1.10); GLUCOSE 170 MG/DL (70-104); MAGNESIUM 2.1 MG/DL (1.5-2.4); PHOSPHORUS 2.3 MG/DL (2.3-4.5); SODIUM 139 MMOL/L (135-145); TOTAL CARBON DIOXIDE 21.9 MMOL/L (24-32); TOTAL PROTEIN 4.2 G/DL (6.4-8.2); eGFR 69 ML/MIN
--- NOTE | 2018-03-09 06:14 | NUR ---
Problems reprioritized. Patient report given, questions answered & plan of care reviewed with JOHAN Adams.
--- NOTE | 2018-03-09 06:30 | NUR ---
Received report and assume care.
[2018-03-09] MEDS: atorvastatin 10mg tablet PO SCH (07:43)
[2018-03-09] MEDS: famotidine/PF 10 mg/ml inj IV SCH ×2 (07:43→19:20)
[2018-03-09] MEDS: K, MAG and/or Phos replacement - Verify level? MC SCH (07:44)
[2018-03-09] MEDS: lactobacillus rhamnosus 10,000 MMU CELLS/CAPSULE PO SCH ×2 (07:44→19:20)
[2018-03-09] MEDS: normal saline 1000ml 1,000 ML IV SCH ×2 (07:46→19:21)
[2018-03-09] MEDS: methylnaltrexone br 12mg/0.6ml inj***SubQ only SQ SCH (07:47)
[2018-03-09 09:08] LABS: BASOPHILS # (AUTO) 0.1 X10'3 (0-0.2); BASOPHILS % (AUTO) 0.4 % (0-1); EOSINOPHILS % (AUTO) 0.1 % (0-6); HEMATOCRIT 22.2 % (42.0-52.0); HEMOGLOBIN 7.1 g/dl (14.0-17.9); LYMPHOCYTES # (AUTO) 0.8 X10'3 (1.1-4.8); LYMPHOCYTES % (AUTO) 3.9 % (21-51); MEAN CORPUSCULAR HEMOGLOBIN 27.9 PG (27.0-31.0); MEAN CORPUSCULAR HGB CONC 31.8 % (33.0-36.5); MEAN CORPUSCULAR VOLUME 87.6 FL (78-98); MEAN PLATELET VOLUME 8.6 FL (7.4-10.4); MONOCYTES # (AUTO) 0.5 X10'3 (0-0.9); MONOCYTES % (AUTO) 2.6 % (2-12); NEUTROPHILS # (AUTO) 17.9 X10'3 (1.8-7.7); RED BLOOD COUNT 2.54 X10'6 (4.70-6.10); RED CELL DISTRIBUTION WIDTH 17.4 % (11.5-14.5); WHITE BLOOD COUNT 19.3 X10'3 (4.5-11.0)
[2018-03-09 09:20] LABS: ALBUMIN 1.5 G/DL (3.4-5.0); ANION GAP 7 (8-16); BLOOD UREA NITROGEN 36 MG/DL (7-18); BUN/CREATININE RATIO 35.3 (5.4-32.0); CALCIUM 6.8 MG/DL (8.5-10.1); CHLORIDE 106 MMOL/L (99-107); CREATININE 1.02 MG/DL (0.60-1.10); GLUCOSE 147 MG/DL (70-104); MAGNESIUM 2.1 MG/DL (1.5-2.4); PHOSPHORUS 2.3 MG/DL (2.3-4.5); POTASSIUM 4.1 MMOL/L (3.5-5.1); SODIUM 138 MMOL/L (135-145); TOTAL CARBON DIOXIDE 24.8 MMOL/L (24-32); eGFR 73 ML/MIN
[2018-03-09 09:41] LABS: PLATELET COUNT 36 X10'3 (140-440)
--- NOTE | 2018-03-09 10:00 | NUR ---
turned patient to left side. immediately started having runs of svt at 180. Dr Guerrero was notified and new orders are given. repositioned back to previous position and dysrhythmia stopped. now in ST with occasional PAC.
[2018-03-09] MEDS ORDERED: amiodarone 50MG/ML inj IV ONE (10:12)
[2018-03-09] MEDS ORDERED: amiodarone/D5 360MG/200ML BAG 200 ML IV ONE (10:12)
[2018-03-09] MEDS ORDERED: amiodarone 150mg/dext, iso-os 100 ML IV ONE ×2 (10:14→10:30)
[2018-03-09] MEDS: amiodarone/D5 360MG/200ML BAG 200 ML IV SCH ×3 (10:51→22:59)
[2018-03-09 15:41] LABS: ALBUMIN 1.4 G/DL (3.4-5.0); ANION GAP 11 (8-16); BASOPHILS % (AUTO) 0.1 % (0-1); BLOOD UREA NITROGEN 36 MG/DL (7-18); BUN/CREATININE RATIO 36.7 (5.4-32.0); CHLORIDE 103 MMOL/L (99-107); CREATININE 0.98 MG/DL (0.60-1.10); EOSINOPHILS % (AUTO) 0.1 % (0-6); GLUCOSE 217 MG/DL (70-104); LYMPHOCYTES # (AUTO) 0.6 X10'3 (1.1-4.8); LYMPHOCYTES % (AUTO) 3.3 % (21-51); MAGNESIUM 2.2 MG/DL (1.5-2.4); MEAN CORPUSCULAR HEMOGLOBIN 28.9 PG (27.0-31.0); MEAN CORPUSCULAR HGB CONC 32.4 % (33.0-36.5); MEAN PLATELET VOLUME 8.9 FL (7.4-10.4); MONOCYTES # (AUTO) 0.7 X10'3 (0-0.9); NEUTROPHILS # (AUTO) 15.5 X10'3 (1.8-7.7); NEUTROPHILS % (AUTO) 92.5 % (42-75); PHOSPHORUS 2.5 MG/DL (2.3-4.5); RED BLOOD COUNT 2.44 X10'6 (4.70-6.10); RED CELL DISTRIBUTION WIDTH 18.4 % (11.5-14.5); SODIUM 138 MMOL/L (135-145); TOTAL CARBON DIOXIDE 23.6 MMOL/L (24-32); WHITE BLOOD COUNT 16.8 X10'3 (4.5-11.0); eGFR 76 ML/MIN
[2018-03-09 15:58] LABS: HEMATOCRIT 21.7 % (42.0-52.0); PLATELET COUNT 35 X10'3 (140-440)
[2018-03-09] MEDS: vasopressin inj. 60 UNIT in normal saline 100ml IV soln 97 ML IV PRN (16:33)
--- NOTE | 2018-03-09 18:15 | NUR ---
Patient in room ICU 2043. I have received report from JOHAN Adams, and had the opportunity to ask questions and assume patient care. TF requires new set up, VSS at this time, NAD. Pt has eyes open and moving head towards verbal stimuli. CVVH functioning w/o difficulty.
--- NOTE | 2018-03-09 19:00 | NUR ---
Pt in bed with eyes open, able to follow commands and nod/shake head in response to simple questions. Attempts verbal communication at times. Deficit noted to right foot and hand, pt indicates that this is a normal finding.
[2018-03-09 19:59] LABS: BASOPHILS # (AUTO) 0.1 X10'3 (0-0.2); BASOPHILS % (AUTO) 0.8 % (0-1); EOSINOPHILS % (AUTO) 0.1 % (0-6); LYMPHOCYTES # (AUTO) 0.8 X10'3 (1.1-4.8); LYMPHOCYTES % (AUTO) 4.6 % (21-51); MEAN CORPUSCULAR HEMOGLOBIN 28.6 PG (27.0-31.0); MEAN CORPUSCULAR HGB CONC 32.4 % (33.0-36.5); MEAN CORPUSCULAR VOLUME 88.3 FL (78-98); MONOCYTES # (AUTO) 0.6 X10'3 (0-0.9); MONOCYTES % (AUTO) 3.9 % (2-12); NEUTROPHILS % (AUTO) 90.6 % (42-75); RED BLOOD COUNT 2.45 X10'6 (4.70-6.10); RED CELL DISTRIBUTION WIDTH 17.4 % (11.5-14.5); WHITE BLOOD COUNT 16.5 X10'3 (4.5-11.0)
[2018-03-09 20:04] LABS: ALBUMIN 1.4 G/DL (3.4-5.0); ANION GAP 10 (8-16); BLOOD UREA NITROGEN 35 MG/DL (7-18); BUN/CREATININE RATIO 34.3 (5.4-32.0); CALCIUM 6.8 MG/DL (8.5-10.1); CHLORIDE 106 MMOL/L (99-107); CREATININE 1.02 MG/DL (0.60-1.10); GLUCOSE 129 MG/DL (70-104); MAGNESIUM 2.2 MG/DL (1.5-2.4); PHOSPHORUS 2.5 MG/DL (2.3-4.5); POTASSIUM 3.9 MMOL/L (3.5-5.1); SODIUM 140 MMOL/L (135-145); TOTAL CARBON DIOXIDE 24.4 MMOL/L (24-32); eGFR 73 ML/MIN
[2018-03-09 20:11] LABS: HEMATOCRIT 21.6 % (42.0-52.0); PLATELET COUNT 36 X10'3 (140-440)
[2018-03-09] MEDS: insulin glargine (Lantus) pen - multi-dose SQ SCH (20:42)
[2018-03-09] MEDS: polyethylene glycol 3350 17gm powd pack PO SCH (20:44)
[2018-03-09] MEDS: FENTANYL-0.9 % NACL/PF 100 ML IV PRN (21:51)
[2018-03-10] VITALS (27 sets, daily range): BP systolic 94–133; BP diastolic 39–59
[2018-03-10] MEDS: [UNRECOGNIZED DRUG - REMARK] HE SCH ×12 (01:07→22:31)
[2018-03-10] MEDS: mineral oil/petrolatum ophthal oint EACHEYE SCH ×4 (01:30→19:56)
[2018-03-10] MEDS: hydrocortisone sod succ/PF 100mg/2ml inj. IV SCH ×4 (01:32→19:55)
[2018-03-10] MEDS: piperacillin/tazo 3.375gm/50ml 50 ML IV SCH ×4 (01:32→19:55)
[2018-03-10] MEDS: insulin regular, human vial - multi-dose SQ SCH ×3 (01:53→20:33)
--- NOTE | 2018-03-10 02:40 | NUR ---
Pt awake in bed and looking around room. VSS, DENIA.
[2018-03-10 02:45] LABS: BASOPHILS % (AUTO) 0.1 % (0-1); EOSINOPHILS % (AUTO) 0.1 % (0-6); HEMOGLOBIN 7.1 g/dl (14.0-17.9); LYMPHOCYTES # (AUTO) 0.5 X10'3 (1.1-4.8); LYMPHOCYTES % (AUTO) 3.2 % (21-51); MEAN CORPUSCULAR HEMOGLOBIN 29.1 PG (27.0-31.0); MEAN CORPUSCULAR HGB CONC 32.9 % (33.0-36.5); MEAN CORPUSCULAR VOLUME 88.4 FL (78-98); MEAN PLATELET VOLUME 8.5 FL (7.4-10.4); MONOCYTES # (AUTO) 0.7 X10'3 (0-0.9); MONOCYTES % (AUTO) 4.2 % (2-12); NEUTROPHILS # (AUTO) 14.5 X10'3 (1.8-7.7); NEUTROPHILS % (AUTO) 92.4 % (42-75); RED BLOOD COUNT 2.45 X10'6 (4.70-6.10); RED CELL DISTRIBUTION WIDTH 18.8 % (11.5-14.5); WHITE BLOOD COUNT 15.7 X10'3 (4.5-11.0)
[2018-03-10] MEDS: ipratropium/albuterol 3ml nebule NEB SCH ×6 (02:48→22:56)
[2018-03-10 02:56] LABS: INR 1.4 INR; PARTIAL THROMBOPLASTIN TIME 39 SECONDS (22-32); PROTHROMBIN TIME 14.1 SECONDS (9.0-12.0)
[2018-03-10 02:57] LABS: ALANINE AMINOTRANSFERASE 422 U/L (12-78); ALBUMIN 1.4 G/DL (3.4-5.0); ALBUMIN/GLOBULIN RATIO 0.5 (1.1-1.5); ALKALINE PHOSPHATASE 184 IU/L (46-116); ANION GAP 8 (8-16); ASPARTATE AMINO TRANSFERASE 208 U/L (10-37); BILIRUBIN,TOTAL 2.8 MG/DL (0.1-1.0); BLOOD UREA NITROGEN 33 MG/DL (7-18); BUN/CREATININE RATIO 33.3 (5.4-32.0); CALCIUM 6.8 MG/DL (8.5-10.1); CHLORIDE 105 MMOL/L (99-107); CREATININE 0.99 MG/DL (0.60-1.10); GLUCOSE 147 MG/DL (70-104); MAGNESIUM 2.2 MG/DL (1.5-2.4); PHOSPHORUS 2.7 MG/DL (2.3-4.5); POTASSIUM 4.1 MMOL/L (3.5-5.1); SODIUM 138 MMOL/L (135-145); TOTAL CARBON DIOXIDE 24.9 MMOL/L (24-32); TOTAL PROTEIN 4.3 G/DL (6.4-8.2); eGFR 75 ML/MIN
[2018-03-10 03:01] LABS: ABG BASE EXCESS 1.8 mmol/L (-2.0-3.0); ABG OXYGEN SATURATION 97.2 % (95-98); ABG PCO2 (T) 28.1 mmHg (35.0-48.0); ABG PH (T) 7.549 (7.350-7.450); ABG PO2 (T) 91.2 mmHg (83-108); FMetHb 0.1 % (0.3-1.12); FO2Hb 96.1 % (94-100); MINUTE VOLUME 16 L/min; PEEP 5 cm H2O; RESPIRATORY RATE 22 b/min; RESPIRATORY RATE (OBSERVED) 22 b/min; TOTAL HEMOGLOBIN 7.7 G/dl (14.0-18.0)
[2018-03-10 03:07] LABS: PLATELET COUNT 22 X10'3 (140-440)
[2018-03-10 03:08] LABS: HEMATOCRIT 21.6 % (42.0-52.0)
--- NOTE | 2018-03-10 03:40 | NUR ---
Pt remains awake and looking around room, now shifting weight in bed. Pt indicating that he is still in generalized pain. Fentanyl gtt increased. Pt now able to rest more comfortably. NAD.
[2018-03-10 04:07] LABS: ANISOCYTOSIS 2+; ELLIPTOCYTES FEW; PLATELET ESTIMATE DECREASED; POLYCHROMASIA 1+; SCHISTOCYTES FEW
[2018-03-10 04:08] LABS: TARGET CELLS FEW
[2018-03-10] MEDS: amiodarone/D5 360MG/200ML BAG 200 ML IV SCH ×4 (04:42→22:54)
--- NOTE | 2018-03-10 06:00 | NUR ---
Pt resting in bed with eyes closed, RR WNL, VSS. NAD.
--- NOTE | 2018-03-10 06:15 | NUR ---
Problems reprioritized. Patient report given, questions answered & plan of care reviewed with JOHAN Prajapati.
[2018-03-10] MEDS: K, MAG and/or Phos replacement - Verify level? MC SCH (08:00)
[2018-03-10] MEDS: atorvastatin 10mg tablet PO SCH (08:52)
[2018-03-10] MEDS: lactobacillus rhamnosus 10,000 MMU CELLS/CAPSULE PO SCH ×2 (08:53→19:55)
[2018-03-10 09:45] LABS: BASOPHILS # (AUTO) 0.1 X10'3 (0-0.2); BASOPHILS % (AUTO) 0.4 % (0-1); EOSINOPHILS % (AUTO) 0.1 % (0-6); LYMPHOCYTES # (AUTO) 0.4 X10'3 (1.1-4.8); LYMPHOCYTES % (AUTO) 3.3 % (21-51); MEAN CORPUSCULAR HEMOGLOBIN 29.3 PG (27.0-31.0); MEAN CORPUSCULAR HGB CONC 33.2 % (33.0-36.5); MEAN CORPUSCULAR VOLUME 88.3 FL (78-98); MONOCYTES # (AUTO) 0.7 X10'3 (0-0.9); MONOCYTES % (AUTO) 5.4 % (2-12); NEUTROPHILS # (AUTO) 11.8 X10'3 (1.8-7.7); NEUTROPHILS % (AUTO) 90.8 % (42-75); RED BLOOD COUNT 2.32 X10'6 (4.70-6.10); RED CELL DISTRIBUTION WIDTH 18.6 % (11.5-14.5); WHITE BLOOD COUNT 12.9 X10'3 (4.5-11.0)
[2018-03-10] MEDS: normal saline 1000ml 1,000 ML IV SCH ×2 (09:45→23:05)
[2018-03-10 10:14] LABS: ALBUMIN 1.3 G/DL (3.4-5.0); ANION GAP 12 (8-16); BLOOD UREA NITROGEN 38 MG/DL (7-18); BUN/CREATININE RATIO 35.5 (5.4-32.0); CALCIUM 6.9 MG/DL (8.5-10.1); CHLORIDE 104 MMOL/L (99-107); CREATININE 1.07 MG/DL (0.60-1.10); GLUCOSE 154 MG/DL (70-104); MAGNESIUM 2.2 MG/DL (1.5-2.4); PHOSPHORUS 3.4 MG/DL (2.3-4.5); POTASSIUM 4.3 MMOL/L (3.5-5.1); SODIUM 138 MMOL/L (135-145); TOTAL CARBON DIOXIDE 21.6 MMOL/L (24-32); eGFR 69 ML/MIN
[2018-03-10 10:18] LABS: HEMATOCRIT 20.5 % (42.0-52.0); HEMOGLOBIN 6.8 g/dl (14.0-17.9)
[2018-03-10 10:19] LABS: PLATELET COUNT 18 X10'3 (140-440); PLATELET ESTIMATE DECREASED
[2018-03-10 10:20] LABS: ANISOCYTOSIS 2+; POLYCHROMASIA 1+
[2018-03-10] MEDS ORDERED: epoetin 20,000 units/ml inj SQ SCH (12:30)
[2018-03-10] MEDS: famotidine/PF 10 mg/ml inj IV SCH ×2 (14:16→19:55)
--- NOTE | 2018-03-10 18:41 | NUR ---
Patient in room ICU 2043. I have received report from Victorina PRADO and had the opportunity to ask questions and assume patient care.
--- NOTE | 2018-03-10 18:41 | NUR ---
Pt is in bed hooked up to [facility]. Eyes open, communicating with nods or shaking of the head. He is alert and watching TV.
[2018-03-10 19:56] LABS: BASOPHILS % (AUTO) 0.1 % (0-1); EOSINOPHILS # (AUTO) 0.2 X10'3 (0-0.9); EOSINOPHILS % (AUTO) 1.6 % (0-6); HEMATOCRIT 26.7 % (42.0-52.0); HEMOGLOBIN 8.6 g/dl (14.0-17.9); LYMPHOCYTES # (AUTO) 0.3 X10'3 (1.1-4.8); LYMPHOCYTES % (AUTO) 2.2 % (21-51); MEAN CORPUSCULAR HEMOGLOBIN 27.8 PG (27.0-31.0); MEAN CORPUSCULAR HGB CONC 32.3 % (33.0-36.5); MEAN CORPUSCULAR VOLUME 86.1 FL (78-98); MEAN PLATELET VOLUME 10.2 FL (7.4-10.4); MONOCYTES # (AUTO) 0.7 X10'3 (0-0.9); MONOCYTES % (AUTO) 4.6 % (2-12); NEUTROPHILS # (AUTO) 13.3 X10'3 (1.8-7.7); NEUTROPHILS % (AUTO) 91.5 % (42-75); RED CELL DISTRIBUTION WIDTH 20.8 % (11.5-14.5); WHITE BLOOD COUNT 14.5 X10'3 (4.5-11.0)
[2018-03-10 20:02] LABS: PLATELET COUNT 21 X10'3 (140-440)
[2018-03-10 20:09] LABS: ALBUMIN 1.5 G/DL (3.4-5.0); ANION GAP 10 (8-16); BLOOD UREA NITROGEN 34 MG/DL (7-18); BUN/CREATININE RATIO 34.7 (5.4-32.0); CHLORIDE 105 MMOL/L (99-107); CREATININE 0.98 MG/DL (0.60-1.10); GLUCOSE 129 MG/DL (70-104); MAGNESIUM 2.3 MG/DL (1.5-2.4); PHOSPHORUS 3.1 MG/DL (2.3-4.5); POTASSIUM 4.2 MMOL/L (3.5-5.1); SODIUM 138 MMOL/L (135-145); TOTAL CARBON DIOXIDE 23.1 MMOL/L (24-32); eGFR 76 ML/MIN
[2018-03-10] MEDS: insulin glargine (Lantus) pen - multi-dose SQ SCH (20:32)
[2018-03-10] MEDS: polyethylene glycol 3350 17gm powd pack PO SCH (21:31)
[2018-03-10] MEDS: FENTANYL-0.9 % NACL/PF 100 ML IV PRN (22:18)
[2018-03-11] VITALS (28 sets, daily range): BP systolic 103–130; BP diastolic 42–62
[2018-03-11] MEDS: NORepinephrine 8mg/ 250ml NS 250 ML IV SCH ×2 (02:20→10:27)
[2018-03-11] MEDS: mineral oil/petrolatum ophthal oint EACHEYE SCH ×4 (02:20→19:24)
[2018-03-11] MEDS: piperacillin/tazo 3.375gm/50ml 50 ML IV SCH ×2 (02:21→07:34)
[2018-03-11] MEDS: hydrocortisone sod succ/PF 100mg/2ml inj. IV SCH ×4 (02:22→19:42)
[2018-03-11 02:59] LABS: BASOPHILS % (AUTO) 0 % (0-1); EOSINOPHILS % (AUTO) 0 % (0-6); HEMATOCRIT 26.7 % (42.0-52.0); HEMOGLOBIN 8.7 g/dl (14.0-17.9); LYMPHOCYTES # (AUTO) 0.3 X10'3 (1.1-4.8); LYMPHOCYTES % (AUTO) 2.2 % (21-51); MEAN CORPUSCULAR HEMOGLOBIN 27.7 PG (27.0-31.0); MEAN CORPUSCULAR HGB CONC 32.6 % (33.0-36.5); MEAN CORPUSCULAR VOLUME 85.1 FL (78-98); MEAN PLATELET VOLUME 10.9 FL (7.4-10.4); MONOCYTES # (AUTO) 0.8 X10'3 (0-0.9); MONOCYTES % (AUTO) 5.4 % (2-12); NEUTROPHILS # (AUTO) 12.8 X10'3 (1.8-7.7); NEUTROPHILS % (AUTO) 92.4 % (42-75); RED BLOOD COUNT 3.14 X10'6 (4.70-6.10); WHITE BLOOD COUNT 13.9 X10'3 (4.5-11.0)
[2018-03-11 03:02] LABS: PLATELET COUNT 17 X10'3 (140-440)
[2018-03-11] MEDS: ipratropium/albuterol 3ml nebule NEB SCH ×6 (03:04→23:11)
[2018-03-11 03:19] LABS: ALANINE AMINOTRANSFERASE 329 U/L (12-78); ALBUMIN 1.5 G/DL (3.4-5.0); ALBUMIN/GLOBULIN RATIO 0.5 (1.1-1.5); ALKALINE PHOSPHATASE 187 IU/L (46-116); ANION GAP 9 (8-16); ASPARTATE AMINO TRANSFERASE 121 U/L (10-37); BILIRUBIN,TOTAL 2.6 MG/DL (0.1-1.0); BLOOD UREA NITROGEN 33 MG/DL (7-18); BUN/CREATININE RATIO 36.3 (5.4-32.0); CALCIUM 6.9 MG/DL (8.5-10.1); CHLORIDE 105 MMOL/L (99-107); CREATININE 0.91 MG/DL (0.60-1.10); GLUCOSE 93 MG/DL (70-104); MAGNESIUM 2.2 MG/DL (1.5-2.4); PHOSPHORUS 3.3 MG/DL (2.3-4.5); POTASSIUM 4.2 MMOL/L (3.5-5.1); SODIUM 139 MMOL/L (135-145); TOTAL CARBON DIOXIDE 25.3 MMOL/L (24-32); TOTAL PROTEIN 4.8 G/DL (6.4-8.2); eGFR 83 ML/MIN
[2018-03-11 03:20] LABS: INR 1.4 INR; PARTIAL THROMBOPLASTIN TIME 36 SECONDS (22-32); PROTHROMBIN TIME 14.1 SECONDS (9.0-12.0)
[2018-03-11 03:49] LABS: NUCLEATED RED BLOOD CELLS 3 /100WBC (0-0); TOTAL CELLS COUNTED 100
[2018-03-11 03:50] LABS: ANISOCYTOSIS 3+
[2018-03-11 03:52] LABS: POLYCHROMASIA 1+; TARGET CELLS FEW
[2018-03-11 03:53] LABS: LARGE PLATELETS FEW; PLATELET ESTIMATE DECREASED
[2018-03-11] MEDS: insulin regular, human vial - multi-dose SQ SCH ×4 (04:26→19:57)
[2018-03-11] MEDS: Duosol 4K/3 Ca (w/calcium) 5,000 ML HE SCH ×4 (04:51→14:03)
--- NOTE | 2018-03-11 06:30 | NUR ---
Patient in room ICU 2043. I have received report from JOHAN Palomo and had the opportunity to ask questions and assume patient care.
--- NOTE | 2018-03-11 06:39 | NUR ---
Problems reprioritized. Patient report given, questions answered & plan of care reviewed with Mona PRADO.
[2018-03-11] MEDS: lactobacillus rhamnosus 10,000 MMU CELLS/CAPSULE PO SCH ×2 (07:36→19:42)
[2018-03-11] MEDS: atorvastatin 10mg tablet PO SCH (07:39)
[2018-03-11] MEDS: methylnaltrexone br 12mg/0.6ml inj***SubQ only SQ SCH (07:39)
[2018-03-11] MEDS ORDERED: epoetin 20,000 units/ml inj SQ SCH (08:00)
[2018-03-11 08:26] LABS: BASOPHILS % (AUTO) 0 % (0-1); EOSINOPHILS % (AUTO) 0 % (0-6); HEMATOCRIT 26.1 % (42.0-52.0); HEMOGLOBIN 8.3 g/dl (14.0-17.9); LYMPHOCYTES # (AUTO) 0.3 X10'3 (1.1-4.8); LYMPHOCYTES % (AUTO) 3.1 % (21-51); MEAN CORPUSCULAR HEMOGLOBIN 27.4 PG (27.0-31.0); MEAN CORPUSCULAR HGB CONC 31.8 % (33.0-36.5); MEAN CORPUSCULAR VOLUME 86.3 FL (78-98); MEAN PLATELET VOLUME 10.7 FL (7.4-10.4); MONOCYTES # (AUTO) 0.6 X10'3 (0-0.9); MONOCYTES % (AUTO) 5.3 % (2-12); NEUTROPHILS # (AUTO) 9.8 X10'3 (1.8-7.7); NEUTROPHILS % (AUTO) 91.6 % (42-75); RED BLOOD COUNT 3.02 X10'6 (4.70-6.10); WHITE BLOOD COUNT 10.6 X10'3 (4.5-11.0)
[2018-03-11 08:34] LABS: ALBUMIN 1.4 G/DL (3.4-5.0); ANION GAP 8 (8-16); BLOOD UREA NITROGEN 31 MG/DL (7-18); BUN/CREATININE RATIO 38.3 (5.4-32.0); CALCIUM 6.9 MG/DL (8.5-10.1); CHLORIDE 106 MMOL/L (99-107); CREATININE 0.81 MG/DL (0.60-1.10); GLUCOSE 100 MG/DL (70-104); PHOSPHORUS 3.1 MG/DL (2.3-4.5); POTASSIUM 3.9 MMOL/L (3.5-5.1); SODIUM 138 MMOL/L (135-145); TOTAL CARBON DIOXIDE 23.6 MMOL/L (24-32); eGFR > 90 ML/MIN
[2018-03-11 08:43] LABS: PLATELET COUNT 17 X10'3 (140-440)
[2018-03-11 08:47] LABS: ANISOCYTOSIS 3+; NUCLEATED RED BLOOD CELLS 1 /100WBC (0-0); PLATELET ESTIMATE DECREASED; POLYCHROMASIA FEW; TARGET CELLS FEW; TOTAL CELLS COUNTED 100
[2018-03-11 08:50] LABS: BURR CELLS FEW; SCHISTOCYTES FEW
[2018-03-11] MEDS: amiodarone/D5 360MG/200ML BAG 200 ML IV SCH ×4 (08:50→22:57)
--- NOTE | 2018-03-11 09:00 | NUR ---
Dr. mcmahon arrived on unit and assessed pt, updated on pt condition, critical platelet count notified , 1 10pk platelet order received and transfused, pt tolerated well with no reactions.
[2018-03-11] MEDS: potassium Cl 20mEq/100mL bag 100 ML IV PRN (09:51)
[2018-03-11] MEDS: K, MAG and/or Phos replacement - Verify level? MC SCH (10:28)
--- NOTE | 2018-03-11 12:00 | NUR ---
pt is awake and alert, noding to yes or no questions and monthing words to communicate. CVVH went down at 1100, machine clotted and broken down per featheredge machine operator. Dr. Crow aware, okay to stall CVVH until featheredge machine operator restart treatment. sheila cath flushed and clamped. titrating vasoactive meds to maintain MAP > 65. Pt verbalize to son, Abhijeet and RN that he wants to go home, treatment options discussed at bedside.
[2018-03-11] MEDS: [UNRECOGNIZED DRUG - REMARK] HE SCH ×6 (14:03→22:18)
[2018-03-11] MEDS: normal saline 1000ml 1,000 ML IV SCH (14:04)
--- NOTE | 2018-03-11 14:13 | NUR ---
reassessment: Pt TF advanced to goal and tolerating. Rectal tube output 500ml 03/08 last documented. Trach w/ CVVH continuing 25cc/hr pulled per RN. Will continue to monitor for feeding tolerance. Pt may benefit from PEG for long-term nutrition needs. Recommendations: 1) Consider changing tube feeding to Vital HP per OG tube at 75 ml/hr in view of increased needs on CRRT, d/w RN and MD. 2) Recommend 200 ml water flush q 4 in view of sodium of 137, OK by MD and d/w RN. 3) Prealbumin q /; Daily wt 4) Consider PEG for long-term nutrition needs 5) routine bowel care Addendum: 03/11/18 at [address] Amended: Links added.
[2018-03-11 14:53] LABS: ALBUMIN 1.4 G/DL (3.4-5.0); ANION GAP 7 (8-16); BLOOD UREA NITROGEN 37 MG/DL (7-18); CHLORIDE 106 MMOL/L (99-107); GLUCOSE 129 MG/DL (70-104); PHOSPHORUS 3.6 MG/DL (2.3-4.5); POTASSIUM 4.8 MMOL/L (3.5-5.1); SODIUM 138 MMOL/L (135-145); TOTAL CARBON DIOXIDE 25.3 MMOL/L (24-32); eGFR 74 ML/MIN
[2018-03-11 15:00] LABS: BASOPHILS % (AUTO) 0 % (0-1); EOSINOPHILS % (AUTO) 0 % (0-6); HEMATOCRIT 23.5 % (42.0-52.0); HEMOGLOBIN 7.5 g/dl (14.0-17.9); LYMPHOCYTES # (AUTO) 0.2 X10'3 (1.1-4.8); LYMPHOCYTES % (AUTO) 2.8 % (21-51); MEAN CORPUSCULAR HEMOGLOBIN 27.3 PG (27.0-31.0); MEAN CORPUSCULAR HGB CONC 31.8 % (33.0-36.5); MEAN CORPUSCULAR VOLUME 85.8 FL (78-98); MEAN PLATELET VOLUME 9.1 FL (7.4-10.4); MONOCYTES # (AUTO) 0.5 X10'3 (0-0.9); MONOCYTES % (AUTO) 6.2 % (2-12); NEUTROPHILS # (AUTO) 7.6 X10'3 (1.8-7.7); PLATELET COUNT 71 X10'3 (140-440); RED BLOOD COUNT 2.74 X10'6 (4.70-6.10); RED CELL DISTRIBUTION WIDTH 20.5 % (11.5-14.5); WHITE BLOOD COUNT 8.3 X10'3 (4.5-11.0)
[2018-03-11 15:16] LABS: PLATELET ESTIMATE DECREASED
[2018-03-11 15:17] LABS: ANISOCYTOSIS 3+; HYPOCHROMASIA 1+; TARGET CELLS 1+
[2018-03-11 15:19] LABS: SCHISTOCYTES FEW
--- NOTE | 2018-03-11 16:05 | NUR ---
low H & H result called to Dr. Crow. order received to recheck labs at 1999 and if hgb < 7.0 then transfuse 2 units PRBC.
--- NOTE | 2018-03-11 17:00 | NUR ---
ART line and sheila cath dressing to right fem changed under sterile technique, pt tolerated procedure well, serosang noted from groin site. optifoam applied to right groin site. CVVH restarted by legal summer intern. will continue to monitor.
[2018-03-11] MEDS: FENTANYL-0.9 % NACL/PF 100 ML IV PRN (17:23)
--- NOTE | 2018-03-11 18:31 | NUR ---
Problems reprioritized. Patient report given, questions answered & plan of care reviewed with JOHAN Liriano.
--- NOTE | 2018-03-11 18:40 | NUR ---
Patient in room ICU 2043. I have received report from grisel conrad and had the opportunity to ask questions and assume patient care.
[2018-03-11 19:29] LABS: ABG BASE EXCESS 0.6 mmol/L (-2.0-3.0); ABG HCO3 24.1 mmol/L (22.0-26.0); ABG OXYGEN SATURATION 95.6 % (95-98); ABG PH (T) 7.489 (7.350-7.450); ABG PO2 (T) 70.8 mmHg (83-108); FCOHb 0.8 % (0.5-1.5); FMetHb 0.2 % (0.3-1.12); FO2Hb 94.6 % (94-100); MINUTE VOLUME 16 L/min; PATIENT TEMPERATURE 35.7; PEEP 5 cm H2O; RESPIRATORY RATE 22 b/min; RESPIRATORY RATE (OBSERVED) 24 b/min; TOTAL HEMOGLOBIN 9.3 G/dl (14.0-18.0)
[2018-03-11] MEDS: insulin glargine (Lantus) pen - multi-dose SQ SCH (19:58)
[2018-03-11] MEDS: polyethylene glycol 3350 17gm powd pack PO SCH (20:18)
[2018-03-11 20:40] LABS: BASOPHILS % (AUTO) 0 % (0-1); EOSINOPHILS # (AUTO) 0.1 X10'3 (0-0.9); EOSINOPHILS % (AUTO) 1.5 % (0-6); HEMATOCRIT 24.1 % (42.0-52.0); HEMOGLOBIN 7.5 g/dl (14.0-17.9); LYMPHOCYTES # (AUTO) 0.2 X10'3 (1.1-4.8); LYMPHOCYTES % (AUTO) 2.5 % (21-51); MEAN CORPUSCULAR HEMOGLOBIN 27.1 PG (27.0-31.0); MEAN CORPUSCULAR HGB CONC 31.3 % (33.0-36.5); MEAN CORPUSCULAR VOLUME 86.3 FL (78-98); MEAN PLATELET VOLUME 9.1 FL (7.4-10.4); MONOCYTES # (AUTO) 0.7 X10'3 (0-0.9); MONOCYTES % (AUTO) 7.1 % (2-12); NEUTROPHILS # (AUTO) 8.5 X10'3 (1.8-7.7); NEUTROPHILS % (AUTO) 88.9 % (42-75); RED BLOOD COUNT 2.79 X10'6 (4.70-6.10); RED CELL DISTRIBUTION WIDTH 20.2 % (11.5-14.5); WHITE BLOOD COUNT 9.5 X10'3 (4.5-11.0)
[2018-03-11 20:52] LABS: ALBUMIN 1.4 G/DL (3.4-5.0); ANION GAP 9 (8-16); BLOOD UREA NITROGEN 37 MG/DL (7-18); BUN/CREATININE RATIO 39.4 (5.4-32.0); CALCIUM 7.2 MG/DL (8.5-10.1); CHLORIDE 106 MMOL/L (99-107); CREATININE 0.94 MG/DL (0.60-1.10); GLUCOSE 108 MG/DL (70-104); MAGNESIUM 2.1 MG/DL (1.5-2.4); PHOSPHORUS 3.3 MG/DL (2.3-4.5); POTASSIUM 4.6 MMOL/L (3.5-5.1); SODIUM 139 MMOL/L (135-145); eGFR 80 ML/MIN
--- NOTE | 2018-03-11 21:13 | NUR ---
pt had 600 out of stool in 2 hours. pt now negative 600. pt kept even with cvvh
[2018-03-11 21:20] LABS: PLATELET COUNT 42 X10'3 (140-440)
[2018-03-11 21:21] LABS: ANISOCYTOSIS 2+; HYPOCHROMASIA 1+; LARGE PLATELETS FEW; PLATELET ESTIMATE DECREASED; POLYCHROMASIA FEW; TARGET CELLS 1+
[2018-03-12] VITALS (24 sets, daily range): BP systolic 103–123; BP diastolic 41–53
[2018-03-12] MEDS: [UNRECOGNIZED DRUG - REMARK] HE SCH ×15 (00:24→23:18)
[2018-03-12] MEDS: hydrocortisone sod succ/PF 100mg/2ml inj. IV SCH ×4 (01:26→19:29)
[2018-03-12] MEDS: mineral oil/petrolatum ophthal oint EACHEYE SCH ×4 (01:26→19:32)
[2018-03-12] MEDS: normal saline 1000ml 1,000 ML IV SCH ×2 (01:26→15:05)
[2018-03-12 02:29] LABS: BASOPHILS % (AUTO) 0 % (0-1); EOSINOPHILS % (AUTO) 0 % (0-6); HEMATOCRIT 22.8 % (42.0-52.0); HEMOGLOBIN 7.4 g/dl (14.0-17.9); LYMPHOCYTES # (AUTO) 0.3 X10'3 (1.1-4.8); MEAN CORPUSCULAR HEMOGLOBIN 27.7 PG (27.0-31.0); MEAN CORPUSCULAR HGB CONC 32.3 % (33.0-36.5); MEAN CORPUSCULAR VOLUME 85.8 FL (78-98); MEAN PLATELET VOLUME 9.2 FL (7.4-10.4); MONOCYTES # (AUTO) 0.6 X10'3 (0-0.9); MONOCYTES % (AUTO) 7.3 % (2-12); NEUTROPHILS # (AUTO) 7.5 X10'3 (1.8-7.7); NEUTROPHILS % (AUTO) 89.7 % (42-75); RED BLOOD COUNT 2.66 X10'6 (4.70-6.10); RED CELL DISTRIBUTION WIDTH 20.8 % (11.5-14.5); WHITE BLOOD COUNT 8.4 X10'3 (4.5-11.0)
[2018-03-12 02:36] LABS: PLATELET COUNT 37 X10'3 (140-440)
[2018-03-12 02:41] LABS: ABG BASE EXCESS 2.4 mmol/L (-2.0-3.0); ABG HCO3 25.2 mmol/L (22.0-26.0); ABG OXYGEN SATURATION 95.6 % (95-98); ABG PCO2 (T) 30.9 mmHg (35.0-48.0); ABG PH (T) 7.527 (7.350-7.450); ABG PO2 (T) 70.9 mmHg (83-108); FCOHb 1.4 % (0.5-1.5); FMetHb 0.2 % (0.3-1.12); FO2Hb 94.1 % (94-100); MINUTE VOLUME 19 L/min; PATIENT TEMPERATURE 36.5; PEEP 5 cm H2O; RESPIRATORY RATE 22 b/min; RESPIRATORY RATE (OBSERVED) 25 b/min; TOTAL HEMOGLOBIN 8.3 G/dl (14.0-18.0)
[2018-03-12 02:52] LABS: ALANINE AMINOTRANSFERASE 212 U/L (12-78); ALBUMIN 1.4 G/DL (3.4-5.0); ALBUMIN/GLOBULIN RATIO 0.5 (1.1-1.5); ALKALINE PHOSPHATASE 172 IU/L (46-116); ANION GAP 8 (8-16); ASPARTATE AMINO TRANSFERASE 80 U/L (10-37); BILIRUBIN,TOTAL 1.8 MG/DL (0.1-1.0); BLOOD UREA NITROGEN 34 MG/DL (7-18); BUN/CREATININE RATIO 38.6 (5.4-32.0); CALCIUM 6.9 MG/DL (8.5-10.1); CHLORIDE 107 MMOL/L (99-107); CREATININE 0.88 MG/DL (0.60-1.10); GLUCOSE 92 MG/DL (70-104); POTASSIUM 4.4 MMOL/L (3.5-5.1); SODIUM 139 MMOL/L (135-145); TOTAL CARBON DIOXIDE 23.9 MMOL/L (24-32); TOTAL PROTEIN 4.2 G/DL (6.4-8.2); eGFR 86 ML/MIN
[2018-03-12 02:54] LABS: INR 1.4 INR; PARTIAL THROMBOPLASTIN TIME 38 SECONDS (22-32); PROTHROMBIN TIME 14.1 SECONDS (9.0-12.0)
[2018-03-12] MEDS: ipratropium/albuterol 3ml nebule NEB SCH ×6 (02:57→23:26)
[2018-03-12 03:23] LABS: NUCLEATED RED BLOOD CELLS 1 /100WBC (0-0); TOTAL CELLS COUNTED 100
[2018-03-12 03:24] LABS: ANISOCYTOSIS 3+; HYPOCHROMASIA 1+; PLATELET ESTIMATE DECREASED; POLYCHROMASIA FEW; TARGET CELLS 1+; TOXIC GRANULATION 1+
[2018-03-12] MEDS: amiodarone/D5 360MG/200ML BAG 200 ML IV SCH ×3 (05:14→17:22)
--- NOTE | 2018-03-12 06:30 | NUR ---
Patient in room ICU 2043. I have received report from JOHAN Liriano and had the opportunity to ask questions and assume patient care.
[2018-03-12] MEDS: atorvastatin 10mg tablet PO SCH (07:35)
[2018-03-12] MEDS: lactobacillus rhamnosus 10,000 MMU CELLS/CAPSULE PO SCH ×2 (07:35→19:27)
[2018-03-12] MEDS: NORepinephrine 8mg/ 250ml NS 250 ML IV SCH (07:43)
[2018-03-12] MEDS: K, MAG and/or Phos replacement - Verify level? MC SCH (08:00)
[2018-03-12] MEDS: insulin regular, human vial - multi-dose SQ SCH ×3 (08:19→19:28)
[2018-03-12 08:25] LABS: BASOPHILS % (AUTO) 0 % (0-1); EOSINOPHILS % (AUTO) 0 % (0-6); HEMATOCRIT 23.6 % (42.0-52.0); HEMOGLOBIN 7.5 g/dl (14.0-17.9); LYMPHOCYTES # (AUTO) 0.3 X10'3 (1.1-4.8); LYMPHOCYTES % (AUTO) 2.6 % (21-51); MEAN CORPUSCULAR HEMOGLOBIN 27.1 PG (27.0-31.0); MEAN CORPUSCULAR HGB CONC 31.6 % (33.0-36.5); MEAN CORPUSCULAR VOLUME 85.8 FL (78-98); MEAN PLATELET VOLUME 9.6 FL (7.4-10.4); MONOCYTES # (AUTO) 0.8 X10'3 (0-0.9); MONOCYTES % (AUTO) 7.5 % (2-12); NEUTROPHILS # (AUTO) 9.1 X10'3 (1.8-7.7); NEUTROPHILS % (AUTO) 89.9 % (42-75); RED BLOOD COUNT 2.76 X10'6 (4.70-6.10); RED CELL DISTRIBUTION WIDTH 20.9 % (11.5-14.5); WHITE BLOOD COUNT 10.1 X10'3 (4.5-11.0)
[2018-03-12 08:32] LABS: ALBUMIN 1.4 G/DL (3.4-5.0); ANION GAP 7 (8-16); BLOOD UREA NITROGEN 33 MG/DL (7-18); BUN/CREATININE RATIO 37.9 (5.4-32.0); CALCIUM 6.9 MG/DL (8.5-10.1); CHLORIDE 106 MMOL/L (99-107); CREATININE 0.87 MG/DL (0.60-1.10); GLUCOSE 179 MG/DL (70-104); MAGNESIUM 2.1 MG/DL (1.5-2.4); PHOSPHORUS 2.9 MG/DL (2.3-4.5); POTASSIUM 4.2 MMOL/L (3.5-5.1); SODIUM 138 MMOL/L (135-145); TOTAL CARBON DIOXIDE 24.9 MMOL/L (24-32); eGFR 87 ML/MIN
[2018-03-12 08:38] LABS: PLATELET COUNT 37 X10'3 (140-440)
[2018-03-12 09:11] LABS: ANISOCYTOSIS 3+; HYPOCHROMASIA 1+; METAMYLEOCYTES% (MANUAL) 0.5 % (0-0); MONOCYTES % (MANUAL) 8.5 % (2-12); PLATELET ESTIMATE DECREASED; POLYCHROMASIA FEW; TARGET CELLS 1+; TOTAL CELLS COUNTED 200
[2018-03-12 09:12] LABS: SCHISTOCYTES FEW; TOXIC GRANULATION 2+
[2018-03-12] MEDS ORDERED: epoetin 20,000 units/ml inj SQ SCH (09:19)
--- NOTE | 2018-03-12 10:00 | NUR ---
pt is awake and alert, trached, following verbal commands, RN discussed plan of care with pt and pt states that he wants to go home alive. pts wishes discussed during rounds with family present as well. updated Dr. Crow on pt condition, order received to start PO amio and slowly wean IV amio gtt off. Titrating vasoactive gtt to keep MAP >65.
[2018-03-12] MEDS: FENTANYL-0.9 % NACL/PF 100 ML IV PRN (10:23)
[2018-03-12] MEDS: amiodarone 200mg tablet PO SCH ×2 (11:59→19:27)
[2018-03-12 14:40] LABS: BASOPHILS % (AUTO) 0 % (0-1); EOSINOPHILS % (AUTO) 0 % (0-6); HEMATOCRIT 23.2 % (42.0-52.0); HEMOGLOBIN 7.4 g/dl (14.0-17.9); LYMPHOCYTES # (AUTO) 0.2 X10'3 (1.1-4.8); LYMPHOCYTES % (AUTO) 2.5 % (21-51); MEAN CORPUSCULAR HEMOGLOBIN 27.3 PG (27.0-31.0); MEAN CORPUSCULAR VOLUME 85.2 FL (78-98); MEAN PLATELET VOLUME 9.8 FL (7.4-10.4); MONOCYTES # (AUTO) 0.7 X10'3 (0-0.9); MONOCYTES % (AUTO) 7.4 % (2-12); NEUTROPHILS # (AUTO) 8.8 X10'3 (1.8-7.7); NEUTROPHILS % (AUTO) 90.1 % (42-75); RED BLOOD COUNT 2.72 X10'6 (4.70-6.10); RED CELL DISTRIBUTION WIDTH 21.4 % (11.5-14.5); WHITE BLOOD COUNT 9.8 X10'3 (4.5-11.0)
[2018-03-12] MEDS: nystatin 15 GM ointment TP SCH ×2 (14:43→21:17)
[2018-03-12 14:51] LABS: ALBUMIN 1.4 G/DL (3.4-5.0); ANION GAP 7 (8-16); BLOOD UREA NITROGEN 32 MG/DL (7-18); BUN/CREATININE RATIO 37.6 (5.4-32.0); CALCIUM 6.9 MG/DL (8.5-10.1); CHLORIDE 105 MMOL/L (99-107); CREATININE 0.85 MG/DL (0.60-1.10); GLUCOSE 158 MG/DL (70-104); MAGNESIUM 2.2 MG/DL (1.5-2.4); PHOSPHORUS 2.9 MG/DL (2.3-4.5); POTASSIUM 4.3 MMOL/L (3.5-5.1); SODIUM 139 MMOL/L (135-145); TOTAL CARBON DIOXIDE 26.9 MMOL/L (24-32); eGFR 90 ML/MIN
[2018-03-12 15:02] LABS: PLATELET COUNT 34 X10'3 (140-440)
--- NOTE | 2018-03-12 18:28 | NUR ---
Problems reprioritized. Patient report given, questions answered & plan of care reviewed with JOHAN Liriano.
--- NOTE | 2018-03-12 18:45 | NUR ---
Patient in room ICU 2043. I have received report from grisel conrad and had the opportunity to ask questions and assume patient care.
[2018-03-12] MEDS: polyethylene glycol 3350 17gm powd pack PO SCH (19:32)
--- NOTE | 2018-03-12 20:25 | NUR ---
cvvh clotted off. dialysis nurse notified
[2018-03-12 20:35] LABS: BASOPHILS % (AUTO) 0 % (0-1); EOSINOPHILS % (AUTO) 0.4 % (0-6); HEMATOCRIT 22.7 % (42.0-52.0); HEMOGLOBIN 7.4 g/dl (14.0-17.9); LYMPHOCYTES # (AUTO) 0.3 X10'3 (1.1-4.8); MEAN CORPUSCULAR HEMOGLOBIN 27.6 PG (27.0-31.0); MEAN CORPUSCULAR HGB CONC 32.4 % (33.0-36.5); MEAN CORPUSCULAR VOLUME 85.2 FL (78-98); MEAN PLATELET VOLUME 8.7 FL (7.4-10.4); MONOCYTES # (AUTO) 0.2 X10'3 (0-0.9); MONOCYTES % (AUTO) 1.9 % (2-12); NEUTROPHILS # (AUTO) 8.5 X10'3 (1.8-7.7); NEUTROPHILS % (AUTO) 94.7 % (42-75); RED BLOOD COUNT 2.67 X10'6 (4.70-6.10); RED CELL DISTRIBUTION WIDTH 20.4 % (11.5-14.5)
[2018-03-12 20:45] LABS: PLATELET COUNT 27 X10'3 (140-440)
[2018-03-12 20:49] LABS: ALBUMIN 1.3 G/DL (3.4-5.0); ANION GAP 8 (8-16); BLOOD UREA NITROGEN 33 MG/DL (7-18); BUN/CREATININE RATIO 37.1 (5.4-32.0); CALCIUM 6.8 MG/DL (8.5-10.1); CHLORIDE 105 MMOL/L (99-107); CREATININE 0.89 MG/DL (0.60-1.10); GLUCOSE 181 MG/DL (70-104); PHOSPHORUS 2.9 MG/DL (2.3-4.5); SODIUM 137 MMOL/L (135-145); TOTAL CARBON DIOXIDE 24.3 MMOL/L (24-32); eGFR 85 ML/MIN
[2018-03-12] MEDS: insulin glargine (Lantus) pen - multi-dose SQ SCH (21:17)
--- NOTE | 2018-03-12 22:20 | NUR ---
dialysis nurse changed filter and restarted cvvh
--- NOTE | 2018-03-12 23:26 | NUR ---
sheila cath very positional. transposed venous and arterial lines
[2018-03-13] VITALS (33 sets, daily range): BP systolic 102–124; BP diastolic 35–50
[2018-03-13] MEDS: [UNRECOGNIZED DRUG - REMARK] HE SCH ×11 (00:58→18:39)
[2018-03-13] MEDS: mineral oil/petrolatum ophthal oint EACHEYE SCH ×4 (02:00→19:14)
[2018-03-13] MEDS: hydrocortisone sod succ/PF 100mg/2ml inj. IV SCH ×4 (02:05→20:15)
[2018-03-13] MEDS: insulin regular, human vial - multi-dose SQ SCH ×3 (02:13→20:29)
[2018-03-13 03:01] LABS: ALBUMIN 1.3 G/DL (3.4-5.0); ANION GAP 8 (8-16); BLOOD UREA NITROGEN 34 MG/DL (7-18); BUN/CREATININE RATIO 39.1 (5.4-32.0); CALCIUM 7.1 MG/DL (8.5-10.1); CHLORIDE 106 MMOL/L (99-107); CREATININE 0.87 MG/DL (0.60-1.10); GLUCOSE 89 MG/DL (70-104); MAGNESIUM 2.1 MG/DL (1.5-2.4); PHOSPHORUS 3.1 MG/DL (2.3-4.5); POTASSIUM 4.2 MMOL/L (3.5-5.1); SODIUM 140 MMOL/L (135-145); TOTAL CARBON DIOXIDE 26.5 MMOL/L (24-32); eGFR 87 ML/MIN
[2018-03-13 03:04] LABS: INR 1.4 INR; PARTIAL THROMBOPLASTIN TIME 36 SECONDS (22-32); PROTHROMBIN TIME 14.1 SECONDS (9.0-12.0)
[2018-03-13 03:22] LABS: BASOPHILS % (AUTO) 0 % (0-1); EOSINOPHILS # (AUTO) 0.1 X10'3 (0-0.9); EOSINOPHILS % (AUTO) 1.3 % (0-6); HEMATOCRIT 22.7 % (42.0-52.0); HEMOGLOBIN 7.3 g/dl (14.0-17.9); LYMPHOCYTES # (AUTO) 0.2 X10'3 (1.1-4.8); LYMPHOCYTES % (AUTO) 2.3 % (21-51); MEAN CORPUSCULAR HEMOGLOBIN 27.4 PG (27.0-31.0); MEAN CORPUSCULAR VOLUME 85.7 FL (78-98); MEAN PLATELET VOLUME 10.8 FL (7.4-10.4); MONOCYTES # (AUTO) 0.7 X10'3 (0-0.9); MONOCYTES % (AUTO) 7.8 % (2-12); NEUTROPHILS # (AUTO) 8.2 X10'3 (1.8-7.7); NEUTROPHILS % (AUTO) 88.6 % (42-75); RED BLOOD COUNT 2.65 X10'6 (4.70-6.10); RED CELL DISTRIBUTION WIDTH 20.3 % (11.5-14.5); WHITE BLOOD COUNT 9.2 X10'3 (4.5-11.0)
[2018-03-13] MEDS: ipratropium/albuterol 3ml nebule NEB SCH ×6 (03:22→22:53)
[2018-03-13 03:25] LABS: PLATELET COUNT 30 X10'3 (140-440)
[2018-03-13 03:35] LABS: ABG BASE EXCESS 1.5 mmol/L (-2.0-3.0); ABG OXYGEN SATURATION 96.1 % (95-98); ABG PCO2 (T) 32.6 mmHg (35.0-48.0); ABG PH (T) 7.498 (7.350-7.450); ABG PO2 (T) 72.8 mmHg (83-108); FCOHb 1.1 % (0.5-1.5); FMetHb 0.1 % (0.3-1.12); FO2Hb 94.9 % (94-100); MINUTE VOLUME 14 L/min; PATIENT TEMPERATURE 35.9; PEEP 5 cm H2O; RESPIRATORY RATE 22 b/min; RESPIRATORY RATE (OBSERVED) 23 b/min; TOTAL HEMOGLOBIN 8.2 G/dl (14.0-18.0)
[2018-03-13 04:06] LABS: LARGE PLATELETS MODERATE; PLATELET ESTIMATE DECREASED; POLYCHROMASIA 1+; TARGET CELLS 1+
[2018-03-13 04:07] LABS: ANISOCYTOSIS 2+
[2018-03-13] MEDS: normal saline 1000ml 1,000 ML IV SCH ×2 (04:25→17:45)
--- NOTE | 2018-03-13 06:30 | NUR ---
Patient in room ICU 2043. I have received report from JOHAN Liriano and had the opportunity to ask questions and assume patient care.
[2018-03-13] MEDS: K, MAG and/or Phos replacement - Verify level? MC SCH (06:40)
[2018-03-13] MEDS: methylnaltrexone br 12mg/0.6ml inj***SubQ only SQ SCH (06:52)
[2018-03-13] MEDS: lactobacillus rhamnosus 10,000 MMU CELLS/CAPSULE PO SCH ×2 (07:33→20:15)
[2018-03-13] MEDS: atorvastatin 10mg tablet PO SCH (07:33)
[2018-03-13] MEDS: amiodarone 200mg tablet PO SCH ×2 (07:33→20:15)
[2018-03-13] MEDS: NORepinephrine 8mg/ 250ml NS 250 ML IV SCH (07:34)
[2018-03-13] MEDS: nystatin 15 GM ointment TP SCH ×3 (07:35→20:15)
[2018-03-13 08:40] LABS: ALBUMIN 1.3 G/DL (3.4-5.0); ANION GAP 8 (8-16); BLOOD UREA NITROGEN 30 MG/DL (7-18); CALCIUM 6.8 MG/DL (8.5-10.1); CHLORIDE 107 MMOL/L (99-107); CREATININE 0.81 MG/DL (0.60-1.10); GLUCOSE 83 MG/DL (70-104); MAGNESIUM 2.2 MG/DL (1.5-2.4); PHOSPHORUS 2.7 MG/DL (2.3-4.5); POTASSIUM 4.2 MMOL/L (3.5-5.1); SODIUM 140 MMOL/L (135-145); TOTAL CARBON DIOXIDE 25.3 MMOL/L (24-32); eGFR > 90 ML/MIN
[2018-03-13 08:44] LABS: BASOPHILS % (AUTO) 0 % (0-1); EOSINOPHILS # (AUTO) 0.1 X10'3 (0-0.9); EOSINOPHILS % (AUTO) 0.9 % (0-6); HEMATOCRIT 22.6 % (42.0-52.0); HEMOGLOBIN 7.3 g/dl (14.0-17.9); LYMPHOCYTES # (AUTO) 0.4 X10'3 (1.1-4.8); MEAN CORPUSCULAR HEMOGLOBIN 27.7 PG (27.0-31.0); MEAN CORPUSCULAR HGB CONC 32.3 % (33.0-36.5); MEAN CORPUSCULAR VOLUME 85.8 FL (78-98); MONOCYTES # (AUTO) 0.8 X10'3 (0-0.9); MONOCYTES % (AUTO) 8.2 % (2-12); NEUTROPHILS # (AUTO) 8.1 X10'3 (1.8-7.7); NEUTROPHILS % (AUTO) 86.9 % (42-75); RED BLOOD COUNT 2.64 X10'6 (4.70-6.10); RED CELL DISTRIBUTION WIDTH 20.5 % (11.5-14.5); WHITE BLOOD COUNT 9.3 X10'3 (4.5-11.0)
[2018-03-13 09:02] LABS: PLATELET COUNT 22 X10'3 (140-440)
[2018-03-13 10:55] LABS: ANISOCYTOSIS 2+; HYPOCHROMASIA 1+; MICROCYTOSIS 1+; PLATELET ESTIMATE DECREASED; POIKILOCYTOSIS FEW; POLYCHROMASIA 1+; TARGET CELLS FEW
[2018-03-13] MEDS ORDERED: diphenoxylate/atropine tablet (Lomotil) PO PRN (12:00)
--- NOTE | 2018-03-13 12:00 | NUR ---
Dr. crow arrived on unit and assessed pt, updated on pt condition, critical low platelet count notified to Dr. Crow. 10pk PLT order received and transfused. ultrafiltration rate increase to 50ml/hr as tolerated, blood cx drawn. Dr. Crow notified regarding 8 runs of vtach and 13 runs of vtach within 30 sec this am during T&P. pt recovered from it well after was turned to his back. amio PO dose increased.
[2018-03-13 14:29] LABS: BASOPHILS % (AUTO) 0 % (0-1); EOSINOPHILS # (AUTO) 0.1 X10'3 (0-0.9); EOSINOPHILS % (AUTO) 1.4 % (0-6); LYMPHOCYTES # (AUTO) 0.2 X10'3 (1.1-4.8); LYMPHOCYTES % (AUTO) 2.4 % (21-51); MEAN CORPUSCULAR HEMOGLOBIN 27.5 PG (27.0-31.0); MEAN CORPUSCULAR VOLUME 85.9 FL (78-98); MEAN PLATELET VOLUME 8.3 FL (7.4-10.4); MONOCYTES # (AUTO) 0.7 X10'3 (0-0.9); MONOCYTES % (AUTO) 6.7 % (2-12); NEUTROPHILS # (AUTO) 8.7 X10'3 (1.8-7.7); NEUTROPHILS % (AUTO) 89.5 % (42-75); PLATELET COUNT 52 X10'3 (140-440); RED BLOOD COUNT 2.48 X10'6 (4.70-6.10); RED CELL DISTRIBUTION WIDTH 20.4 % (11.5-14.5); WHITE BLOOD COUNT 9.7 X10'3 (4.5-11.0)
[2018-03-13 14:39] LABS: HEMOGLOBIN 6.8 g/dl (14.0-17.9)
[2018-03-13 14:40] LABS: HEMATOCRIT 21.3 % (42.0-52.0)
[2018-03-13 14:42] LABS: ALBUMIN 1.4 G/DL (3.4-5.0); ANION GAP 9 (8-16); BLOOD UREA NITROGEN 30 MG/DL (7-18); BUN/CREATININE RATIO 40.5 (5.4-32.0); CALCIUM 6.9 MG/DL (8.5-10.1); CHLORIDE 106 MMOL/L (99-107); CREATININE 0.74 MG/DL (0.60-1.10); GLUCOSE 140 MG/DL (70-104); MAGNESIUM 2.1 MG/DL (1.5-2.4); PHOSPHORUS 2.6 MG/DL (2.3-4.5); POTASSIUM 4.1 MMOL/L (3.5-5.1); SODIUM 139 MMOL/L (135-145); TOTAL CARBON DIOXIDE 24.5 MMOL/L (24-32); eGFR > 90 ML/MIN
--- NOTE | 2018-03-13 14:50 | NUR ---
Dr. Crow notified regarding critical low H&H, 2unit PRBC order received.
--- NOTE | 2018-03-13 15:57 | NUR ---
reassessment 03/13: Pt TF advanced to goal and tolerating at 75 ml/hr using vital high protein. Patient has trach. Per Bedside RN report during critical care round patient had more than 600 ml stool out today and daily liquid stools. MD wants change to fiber formula to add bulk to stools, discussed avoidance of fiber while on vasopressors and MD verbalized being okay with fiber containing formula. Pt continues on CRRT. Recommend Glucerna 1.2 as it contains short-chain fructo-oligosaccharides, oat fiber, fibersol, and soy fiber that may help with diarrhea. Unable to meet patient's protein needs while on CRRT without overfeeding. Pt may benefit from PEG for long-term nutrition needs. Recommendations: 1) Per MD request to provide more fiber recommend Glucerna 1.2 at 80 ml/hr will provide 1920 ml, 2304 cals, 115 gm protein and 1642 ml free water. This was discussed with bedside RN. 2) 200 ml water flush q 4 3) Prealbumin q /; Daily wt 4) Consider PEG for long-term nutrition needs 5) Hold bowel care in view of high output diarrhea Addendum: 03/13/18 at [address] Amended: Links added.
--- NOTE | 2018-03-13 16:45 | NUR ---
CVVH went down, parimutuel clerk notified, states she will come and restart once shes done with treatment.
--- NOTE | 2018-03-13 18:30 | NUR ---
Patient in room ICU 2043. I have received report and had the opportunity to ask questions and assume patient care.
--- NOTE | 2018-03-13 18:30 | NUR ---
Problems reprioritized. Patient report given, questions answered & plan of care reviewed with JOHAN Liriano.
--- NOTE | 2018-03-13 18:30 | NUR ---
Patient in room ICU 2043. I have received report from grisel conrad and had the opportunity to ask questions and assume patient care.
[2018-03-13] MEDS: polyethylene glycol 3350 17gm powd pack PO SCH (19:14)
--- NOTE | 2018-03-13 20:00 | NUR ---
cvvh filter changed, cvvh now running. will continue to monitor
[2018-03-13] MEDS: insulin glargine (Lantus) pen - multi-dose SQ SCH (20:33)
[2018-03-13 20:50] LABS: BASOPHILS % (AUTO) 0 % (0-1); EOSINOPHILS # (AUTO) 0.1 X10'3 (0-0.9); EOSINOPHILS % (AUTO) 1.2 % (0-6); HEMATOCRIT 26.5 % (42.0-52.0); HEMOGLOBIN 8.5 g/dl (14.0-17.9); LYMPHOCYTES # (AUTO) 0.3 X10'3 (1.1-4.8); LYMPHOCYTES % (AUTO) 2.5 % (21-51); MEAN CORPUSCULAR HEMOGLOBIN 27.6 PG (27.0-31.0); MEAN CORPUSCULAR HGB CONC 32.1 % (33.0-36.5); MEAN CORPUSCULAR VOLUME 86.2 FL (78-98); MEAN PLATELET VOLUME 11.2 FL (7.4-10.4); MONOCYTES # (AUTO) 0.8 X10'3 (0-0.9); MONOCYTES % (AUTO) 6.1 % (2-12); NEUTROPHILS % (AUTO) 90.2 % (42-75); PLATELET COUNT 52 X10'3 (140-440); RED BLOOD COUNT 3.07 X10'6 (4.70-6.10); RED CELL DISTRIBUTION WIDTH 18.1 % (11.5-14.5); WHITE BLOOD COUNT 12.2 X10'3 (4.5-11.0)
[2018-03-13 21:01] LABS: ALBUMIN 1.4 G/DL (3.4-5.0); ANION GAP 10 (8-16); BLOOD UREA NITROGEN 33 MG/DL (7-18); BUN/CREATININE RATIO 35.9 (5.4-32.0); CHLORIDE 106 MMOL/L (99-107); CREATININE 0.92 MG/DL (0.60-1.10); GLUCOSE 142 MG/DL (70-104); MAGNESIUM 2.2 MG/DL (1.5-2.4); PHOSPHORUS 2.9 MG/DL (2.3-4.5); POTASSIUM 4.1 MMOL/L (3.5-5.1); SODIUM 140 MMOL/L (135-145); TOTAL CARBON DIOXIDE 23.9 MMOL/L (24-32); eGFR 82 ML/MIN
--- NOTE | 2018-03-13 23:30 | NUR ---
pt goes into v tach when turned on left side. reviewed todays chest x ray with electrical discharge machine operator. picc line appears to terminate in ventricle. picc line receded 1 inch. will continue to monitor
[2018-03-14] VITALS (24 sets, daily range): BP systolic 105–132; BP diastolic 38–50
[2018-03-14] MEDS: NORepinephrine 8mg/ 250ml NS 250 ML IV SCH (00:52)
[2018-03-14] MEDS: mineral oil/petrolatum ophthal oint EACHEYE SCH ×4 (02:00→20:15)
[2018-03-14] MEDS: hydrocortisone sod succ/PF 100mg/2ml inj. IV SCH ×4 (02:13→20:15)
[2018-03-14] MEDS: [UNRECOGNIZED DRUG - REMARK] HE SCH ×4 (02:20→04:54)
[2018-03-14] MEDS: dextrose 50%-water 50ml dispensing syringe IV PRN (02:26)
[2018-03-14] MEDS: ipratropium/albuterol 3ml nebule NEB SCH ×6 (02:33→22:54)
[2018-03-14 02:45] LABS: ABG BASE EXCESS 1.3 mmol/L (-2.0-3.0); ABG HCO3 25.1 mmol/L (22.0-26.0); ABG OXYGEN SATURATION 94.9 % (95-98); ABG PCO2 (T) 36.2 mmHg (35.0-48.0); ABG PH (T) 7.458 (7.350-7.450); FCOHb 1.2 % (0.5-1.5); FMetHb 0.2 % (0.3-1.12); FO2Hb 93.6 % (94-100); MINUTE VOLUME 9 L/min; PATIENT TEMPERATURE 36.5; PEEP 5 cm H2O; RESPIRATORY RATE 18 b/min; RESPIRATORY RATE (OBSERVED) 19 b/min; TOTAL HEMOGLOBIN 10.5 G/dl (14.0-18.0)
[2018-03-14 02:59] LABS: BASOPHILS % (AUTO) 0 % (0-1); EOSINOPHILS # (AUTO) 0.1 X10'3 (0-0.9); EOSINOPHILS % (AUTO) 0.8 % (0-6); HEMATOCRIT 30.9 % (42.0-52.0); LYMPHOCYTES # (AUTO) 0.6 X10'3 (1.1-4.8); LYMPHOCYTES % (AUTO) 4.3 % (21-51); MEAN CORPUSCULAR HEMOGLOBIN 27.8 PG (27.0-31.0); MEAN CORPUSCULAR HGB CONC 32.4 % (33.0-36.5); MEAN CORPUSCULAR VOLUME 85.7 FL (78-98); MONOCYTES # (AUTO) 0.9 X10'3 (0-0.9); MONOCYTES % (AUTO) 6.8 % (2-12); NEUTROPHILS # (AUTO) 11.6 X10'3 (1.8-7.7); NEUTROPHILS % (AUTO) 88.1 % (42-75); RED BLOOD COUNT 3.61 X10'6 (4.70-6.10); RED CELL DISTRIBUTION WIDTH 16.9 % (11.5-14.5); WHITE BLOOD COUNT 13.1 X10'3 (4.5-11.0)
[2018-03-14 03:00] LABS: ALANINE AMINOTRANSFERASE 164 U/L (12-78); ALBUMIN 1.5 G/DL (3.4-5.0); ALBUMIN/GLOBULIN RATIO 0.5 (1.1-1.5); ALKALINE PHOSPHATASE 179 IU/L (46-116); ANION GAP 9 (8-16); ASPARTATE AMINO TRANSFERASE 65 U/L (10-37); BILIRUBIN,TOTAL 2.2 MG/DL (0.1-1.0); BLOOD UREA NITROGEN 28 MG/DL (7-18); BUN/CREATININE RATIO 35.9 (5.4-32.0); CHLORIDE 105 MMOL/L (99-107); CREATININE 0.78 MG/DL (0.60-1.10); GLUCOSE 67 MG/DL (70-104); INR 1.4 INR; MAGNESIUM 2.2 MG/DL (1.5-2.4); PARTIAL THROMBOPLASTIN TIME 34 SECONDS (22-32); PHOSPHORUS 2.7 MG/DL (2.3-4.5); POTASSIUM 4.5 MMOL/L (3.5-5.1); SODIUM 139 MMOL/L (135-145); TOTAL CARBON DIOXIDE 25.2 MMOL/L (24-32); TOTAL PROTEIN 4.5 G/DL (6.4-8.2); eGFR > 90 ML/MIN
[2018-03-14 03:03] LABS: PLATELET COUNT 41 X10'3 (140-440)
--- NOTE | 2018-03-14 03:50 | NUR ---
balance chamber alarming. 24hr helpline contacted with no answer. on jayson dialysis nurse notified and on her way in to see if she can troubleshoot the problem.
--- NOTE | 2018-03-14 04:30 | NUR ---
dialysis nurse assessed cvvh machine. filter has clotted. in process of changing the filter. will continue to monitor.
[2018-03-14] MEDS: Duosol 4K/3 Ca (w/calcium) 5,000 ML HE SCH ×9 (05:20→22:00)
[2018-03-14] MEDS: normal saline 1000ml 1,000 ML IV SCH ×2 (07:05→20:22)
[2018-03-14] MEDS: K, MAG and/or Phos replacement - Verify level? MC SCH (07:16)
[2018-03-14] MEDS: atorvastatin 10mg tablet PO SCH (07:33)
[2018-03-14] MEDS: amiodarone 200mg tablet PO SCH ×2 (07:33→20:16)
[2018-03-14] MEDS: lactobacillus rhamnosus 10,000 MMU CELLS/CAPSULE PO SCH ×2 (07:33→20:16)
[2018-03-14] MEDS: nystatin 15 GM ointment TP SCH ×3 (07:47→20:41)
[2018-03-14] MEDS ORDERED: epoetin 20,000 units/ml inj SQ SCH (08:00)
[2018-03-14 08:27] LABS: BASOPHILS % (AUTO) 0 % (0-1); EOSINOPHILS # (AUTO) 0.1 X10'3 (0-0.9); EOSINOPHILS % (AUTO) 0.5 % (0-6); HEMATOCRIT 29.9 % (42.0-52.0); HEMOGLOBIN 9.8 g/dl (14.0-17.9); LYMPHOCYTES # (AUTO) 0.4 X10'3 (1.1-4.8); MEAN CORPUSCULAR HEMOGLOBIN 28.1 PG (27.0-31.0); MEAN CORPUSCULAR HGB CONC 32.7 % (33.0-36.5); MEAN CORPUSCULAR VOLUME 86.2 FL (78-98); MEAN PLATELET VOLUME 12.3 FL (7.4-10.4); MONOCYTES # (AUTO) 0.9 X10'3 (0-0.9); MONOCYTES % (AUTO) 6.4 % (2-12); NEUTROPHILS # (AUTO) 12.2 X10'3 (1.8-7.7); NEUTROPHILS % (AUTO) 90.1 % (42-75); RED BLOOD COUNT 3.47 X10'6 (4.70-6.10); WHITE BLOOD COUNT 13.5 X10'3 (4.5-11.0)
[2018-03-14 08:28] LABS: ALBUMIN 1.4 G/DL (3.4-5.0); ANION GAP 7 (8-16); BLOOD UREA NITROGEN 31 MG/DL (7-18); BUN/CREATININE RATIO 35.6 (5.4-32.0); CALCIUM 6.8 MG/DL (8.5-10.1); CHLORIDE 106 MMOL/L (99-107); CREATININE 0.87 MG/DL (0.60-1.10); GLUCOSE 133 MG/DL (70-104); MAGNESIUM 2.1 MG/DL (1.5-2.4); POTASSIUM 4.6 MMOL/L (3.5-5.1); SODIUM 139 MMOL/L (135-145); TOTAL CARBON DIOXIDE 26.3 MMOL/L (24-32); eGFR 87 ML/MIN
[2018-03-14 08:41] LABS: PLATELET COUNT 44 X10'3 (140-440)
[2018-03-14] MEDS: insulin regular, human vial - multi-dose SQ SCH ×3 (08:55→20:40)
[2018-03-14 09:34] LABS: ANISOCYTOSIS 2+; PLATELET ESTIMATE DECREASED; TOTAL CELLS COUNTED 100
[2018-03-14 09:35] LABS: HYPOCHROMASIA 1+; POLYCHROMASIA 2+; TOXIC GRANULATION 3+
[2018-03-14 09:36] LABS: SCHISTOCYTES FEW; TARGET CELLS 1+
[2018-03-14 13:56] LABS: BASOPHILS % (AUTO) 0.1 % (0-1); EOSINOPHILS % (AUTO) 0 % (0-6); HEMATOCRIT 30.7 % (42.0-52.0); HEMOGLOBIN 9.9 g/dl (14.0-17.9); LYMPHOCYTES # (AUTO) 0.3 X10'3 (1.1-4.8); LYMPHOCYTES % (AUTO) 1.9 % (21-51); MEAN CORPUSCULAR HEMOGLOBIN 27.7 PG (27.0-31.0); MEAN CORPUSCULAR HGB CONC 32.3 % (33.0-36.5); MEAN CORPUSCULAR VOLUME 85.8 FL (78-98); MEAN PLATELET VOLUME 9.9 FL (7.4-10.4); MONOCYTES # (AUTO) 0.6 X10'3 (0-0.9); NEUTROPHILS # (AUTO) 14.3 X10'3 (1.8-7.7); RED BLOOD COUNT 3.58 X10'6 (4.70-6.10); RED CELL DISTRIBUTION WIDTH 17.6 % (11.5-14.5); WHITE BLOOD COUNT 15.3 X10'3 (4.5-11.0)
[2018-03-14 14:00] LABS: PLATELET COUNT 42 X10'3 (140-440)
[2018-03-14 14:11] LABS: ALBUMIN 1.5 G/DL (3.4-5.0); ANION GAP 8 (8-16); BLOOD UREA NITROGEN 29 MG/DL (7-18); BUN/CREATININE RATIO 34.9 (5.4-32.0); CALCIUM 7.3 MG/DL (8.5-10.1); CHLORIDE 105 MMOL/L (99-107); CREATININE 0.83 MG/DL (0.60-1.10); GLUCOSE 137 MG/DL (70-104); MAGNESIUM 2.2 MG/DL (1.5-2.4); POTASSIUM 4.8 MMOL/L (3.5-5.1); SODIUM 139 MMOL/L (135-145); TOTAL CARBON DIOXIDE 25.8 MMOL/L (24-32); eGFR > 90 ML/MIN
--- NOTE | 2018-03-14 18:29 | NUR ---
Problems reprioritized. Patient report given, questions answered & plan of care reviewed with Roselyn PRADO.
--- NOTE | 2018-03-14 18:30 | NUR ---
Patient in room ICU 2043. I have received report from Christina PRADO and had the opportunity to ask questions and assume patient care. CVVH running. Pt awake, mouthing words., Trach, Spont mode vent. Levophed off.
[2018-03-14 20:16] LABS: BASOPHILS % (AUTO) 0 % (0-1); EOSINOPHILS % (AUTO) 0 % (0-6); HEMATOCRIT 30.8 % (42.0-52.0); HEMOGLOBIN 9.8 g/dl (14.0-17.9); LYMPHOCYTES # (AUTO) 0.2 X10'3 (1.1-4.8); LYMPHOCYTES % (AUTO) 1.3 % (21-51); MEAN CORPUSCULAR HEMOGLOBIN 27.6 PG (27.0-31.0); MEAN CORPUSCULAR VOLUME 86.4 FL (78-98); MEAN PLATELET VOLUME 11.4 FL (7.4-10.4); MONOCYTES # (AUTO) 0.7 X10'3 (0-0.9); MONOCYTES % (AUTO) 4.4 % (2-12); NEUTROPHILS # (AUTO) 15.4 X10'3 (1.8-7.7); NEUTROPHILS % (AUTO) 94.3 % (42-75); RED BLOOD COUNT 3.56 X10'6 (4.70-6.10); RED CELL DISTRIBUTION WIDTH 17.8 % (11.5-14.5); WHITE BLOOD COUNT 16.3 X10'3 (4.5-11.0)
[2018-03-14] MEDS: FENTANYL-0.9 % NACL/PF 100 ML IV PRN (20:21)
[2018-03-14 20:25] LABS: ALBUMIN 1.5 G/DL (3.4-5.0); ANION GAP 8 (8-16); BLOOD UREA NITROGEN 28 MG/DL (7-18); BUN/CREATININE RATIO 35.4 (5.4-32.0); CALCIUM 7.3 MG/DL (8.5-10.1); CHLORIDE 105 MMOL/L (99-107); CREATININE 0.79 MG/DL (0.60-1.10); GLUCOSE 134 MG/DL (70-104); PHOSPHORUS 3.1 MG/DL (2.3-4.5); POTASSIUM 4.9 MMOL/L (3.5-5.1); SODIUM 139 MMOL/L (135-145); TOTAL CARBON DIOXIDE 25.8 MMOL/L (24-32); eGFR > 90 ML/MIN
[2018-03-14 20:26] LABS: PLATELET COUNT 42 X10'3 (140-440)
[2018-03-14] MEDS: insulin glargine (Lantus) pen - multi-dose SQ SCH (20:39)
[2018-03-14] MEDS: polyethylene glycol 3350 17gm powd pack PO SCH (20:41)
[2018-03-15] VITALS (23 sets, daily range): BP systolic 77–124; BP diastolic 28–44
[2018-03-15] MEDS: Duosol 4K/3 Ca (w/calcium) 5,000 ML HE SCH ×7 (00:14→13:00)
[2018-03-15] MEDS: NORepinephrine 8mg/ 250ml NS 250 ML IV SCH ×3 (01:36→21:21)
[2018-03-15] MEDS: mineral oil/petrolatum ophthal oint EACHEYE SCH ×4 (01:36→21:22)
[2018-03-15] MEDS: hydrocortisone sod succ/PF 100mg/2ml inj. IV SCH ×4 (01:36→21:00)
--- NOTE | 2018-03-15 02:03 | NUR ---
Pt complained of upset stomach. Midnight residuals found to be 550ml and a lot of air. Stomach contents with sour smell and medicine particles, did not feed back. TF reduced to 40ml/hr. 0200 BS 85. Due to nutrition not absorbing, did not give insulin to cover carbs. Levophed restarted due to drop in BP. Pt having more frequent PAC's, Sinus Tach one teens.
[2018-03-15] MEDS: ipratropium/albuterol 3ml nebule NEB SCH ×6 (02:28→22:43)
[2018-03-15 02:45] LABS: ABG HCO3 26.1 mmol/L (22.0-26.0); ABG PCO2 (T) 47.1 mmHg (35.0-48.0); ABG PH (T) 7.358 (7.350-7.450); ABG PO2 (T) 48.1 mmHg (83-108); FCOHb 1.1 % (0.5-1.5); FMetHb 0.1 % (0.3-1.12); MINUTE VOLUME 9 L/min; PATIENT TEMPERATURE 36.1; PEEP 5 cm H2O; RESPIRATORY RATE 18 b/min; RESPIRATORY RATE (OBSERVED) 19 b/min; TOTAL HEMOGLOBIN 11.2 G/dl (14.0-18.0)
[2018-03-15] MEDS ORDERED: albumin (Human) 5% 250ml 250 ML IV ONE (02:45)
--- NOTE | 2018-03-15 02:48 | NUR ---
CVP transduced through PICC line. -1 to 0 reading. Discussed with Garima Maldonado MAKEUP ARTISTRY INSTRUCTOR, albumin ordered. ABG done, Critical pO2, Erica aware. FiO2 increased to 50%. SpO2 pleth not reading low.
[2018-03-15] MEDS: albumin (Human) 5% 250ml 250 ML IV SCH ×2 (02:53→03:44)
[2018-03-15 03:09] LABS: BASOPHILS % (AUTO) 0 % (0-1); EOSINOPHILS % (AUTO) 0 % (0-6); HEMATOCRIT 31.3 % (42.0-52.0); HEMOGLOBIN 9.8 g/dl (14.0-17.9); LYMPHOCYTES # (AUTO) 0.1 X10'3 (1.1-4.8); LYMPHOCYTES % (AUTO) 0.6 % (21-51); MEAN CORPUSCULAR HEMOGLOBIN 27.5 PG (27.0-31.0); MEAN CORPUSCULAR HGB CONC 31.4 % (33.0-36.5); MEAN CORPUSCULAR VOLUME 87.5 FL (78-98); MEAN PLATELET VOLUME 10.3 FL (7.4-10.4); MONOCYTES # (AUTO) 0.9 X10'3 (0-0.9); MONOCYTES % (AUTO) 4.3 % (2-12); NEUTROPHILS # (AUTO) 18.7 X10'3 (1.8-7.7); NEUTROPHILS % (AUTO) 95.1 % (42-75); RED BLOOD COUNT 3.58 X10'6 (4.70-6.10); RED CELL DISTRIBUTION WIDTH 17.7 % (11.5-14.5); WHITE BLOOD COUNT 19.7 X10'3 (4.5-11.0)
[2018-03-15 03:11] LABS: ALBUMIN 1.5 G/DL (3.4-5.0); ANION GAP 8 (8-16); BLOOD UREA NITROGEN 27 MG/DL (7-18); BUN/CREATININE RATIO 35.5 (5.4-32.0); CALCIUM 7.5 MG/DL (8.5-10.1); CHLORIDE 105 MMOL/L (99-107); CREATININE 0.76 MG/DL (0.60-1.10); GLUCOSE 84 MG/DL (70-104); MAGNESIUM 2.1 MG/DL (1.5-2.4); PHOSPHORUS 3.7 MG/DL (2.3-4.5); POTASSIUM 5.2 MMOL/L (3.5-5.1); SODIUM 139 MMOL/L (135-145); eGFR > 90 ML/MIN
--- NOTE | 2018-03-15 04:02 | NUR ---
TF residual too high, wasted 200ml, reduced rate to 20ml/hr. Second albumin running. Levo at 12mcg.
[2018-03-15 04:33] LABS: PLATELET COUNT 38 X10'3 (140-440)
--- NOTE | 2018-03-15 05:49 | NUR ---
Levophed at 16mc, Garima Maldonado NP aware. Also discussed CVVH duosol and labs.
--- NOTE | 2018-03-15 06:37 | NUR ---
Problems reprioritized. Patient report given, questions answered & plan of care reviewed with Angie PRADO.
[2018-03-15 07:13] LABS: ANISOCYTOSIS 2+; HYPOCHROMASIA 1+; PLATELET ESTIMATE DECREASED; TOTAL CELLS COUNTED 100
[2018-03-15 07:14] LABS: POIKILOCYTOSIS FEW; POLYCHROMASIA FEW; TARGET CELLS FEW
[2018-03-15] MEDS: FENTANYL-0.9 % NACL/PF 100 ML IV PRN (07:22)
[2018-03-15] MEDS: vasopressin inj. 60 UNIT in normal saline 100ml IV soln 97 ML IV PRN (07:35)
[2018-03-15] MEDS: K, MAG and/or Phos replacement - Verify level? MC SCH (08:00)
[2018-03-15] MEDS: methylnaltrexone br 12mg/0.6ml inj***SubQ only SQ SCH (08:00)
[2018-03-15] MEDS: atorvastatin 10mg tablet PO SCH (08:30)
[2018-03-15 08:31] LABS: BASOPHILS % (AUTO) 0.1 % (0-1); EOSINOPHILS # (AUTO) 0.1 X10'3 (0-0.9); EOSINOPHILS % (AUTO) 0.8 % (0-6); HEMATOCRIT 29.1 % (42.0-52.0); HEMOGLOBIN 9.5 g/dl (14.0-17.9); LYMPHOCYTES # (AUTO) 0.2 X10'3 (1.1-4.8); LYMPHOCYTES % (AUTO) 1.5 % (21-51); MEAN CORPUSCULAR HEMOGLOBIN 28.1 PG (27.0-31.0); MEAN CORPUSCULAR HGB CONC 32.5 % (33.0-36.5); MEAN CORPUSCULAR VOLUME 86.4 FL (78-98); MEAN PLATELET VOLUME 10.8 FL (7.4-10.4); MONOCYTES # (AUTO) 0.4 X10'3 (0-0.9); MONOCYTES % (AUTO) 2.4 % (2-12); NEUTROPHILS # (AUTO) 15.7 X10'3 (1.8-7.7); NEUTROPHILS % (AUTO) 95.2 % (42-75); RED BLOOD COUNT 3.37 X10'6 (4.70-6.10); RED CELL DISTRIBUTION WIDTH 17.8 % (11.5-14.5); WHITE BLOOD COUNT 16.5 X10'3 (4.5-11.0)
[2018-03-15] MEDS: amiodarone 200mg tablet PO SCH ×2 (08:31→20:59)
[2018-03-15] MEDS: nystatin 15 GM ointment TP SCH ×3 (08:32→21:22)
[2018-03-15] MEDS: lactobacillus rhamnosus 10,000 MMU CELLS/CAPSULE PO SCH ×2 (08:34→20:59)
[2018-03-15 08:35] LABS: PLATELET COUNT 31 X10'3 (140-440)
[2018-03-15 08:43] LABS: ANION GAP 5 (8-16); BLOOD UREA NITROGEN 25 MG/DL (7-18); BUN/CREATININE RATIO 33.8 (5.4-32.0); CALCIUM 7.6 MG/DL (8.5-10.1); CHLORIDE 106 MMOL/L (99-107); CREATININE 0.74 MG/DL (0.60-1.10); PHOSPHORUS 3.4 MG/DL (2.3-4.5); POTASSIUM 5.5 MMOL/L (3.5-5.1); SODIUM 138 MMOL/L (135-145); TOTAL CARBON DIOXIDE 26.6 MMOL/L (24-32); eGFR > 90 ML/MIN
[2018-03-15 08:45] LABS: GLUCOSE 43 MG/DL (70-104)
[2018-03-15] MEDS: dextrose 50%-water 50ml dispensing syringe IV PRN (08:54)
[2018-03-15] MEDS ORDERED: heparin 1,000 units/ml 10ml inj HE ONE ×2 (10:55)
--- NOTE | 2018-03-15 12:03 | NUR ---
cvvh down.Dr nicole notified. will restart in AM. HD RN notified.Needing to titrate levophed and Vaso up. Dr Nicole is aware.
[2018-03-15 14:15] LABS: BASOPHILS % (AUTO) 0 % (0-1); EOSINOPHILS % (AUTO) 0 % (0-6); HEMATOCRIT 25.3 % (42.0-52.0); LYMPHOCYTES # (AUTO) 0.4 X10'3 (1.1-4.8); LYMPHOCYTES % (AUTO) 2.5 % (21-51); MEAN CORPUSCULAR HEMOGLOBIN 27.7 PG (27.0-31.0); MEAN CORPUSCULAR HGB CONC 31.6 % (33.0-36.5); MEAN CORPUSCULAR VOLUME 87.5 FL (78-98); MEAN PLATELET VOLUME 13.1 FL (7.4-10.4); MONOCYTES # (AUTO) 0.3 X10'3 (0-0.9); MONOCYTES % (AUTO) 2.2 % (2-12); NEUTROPHILS # (AUTO) 13.9 X10'3 (1.8-7.7); NEUTROPHILS % (AUTO) 95.3 % (42-75); WHITE BLOOD COUNT 14.6 X10'3 (4.5-11.0)
[2018-03-15 14:20] LABS: PLATELET COUNT 43 X10'3 (140-440)
[2018-03-15 14:31] LABS: ALBUMIN 1.5 G/DL (3.4-5.0); ANION GAP 9 (8-16); BLOOD UREA NITROGEN 30 MG/DL (7-18); BUN/CREATININE RATIO 28.6 (5.4-32.0); CALCIUM 6.8 MG/DL (8.5-10.1); CHLORIDE 107 MMOL/L (99-107); CREATININE 1.05 MG/DL (0.60-1.10); PHOSPHORUS 4.8 MG/DL (2.3-4.5); SODIUM 138 MMOL/L (135-145); eGFR 70 ML/MIN
[2018-03-15 14:47] LABS: GLUCOSE 26 MG/DL (70-104)
[2018-03-15 14:48] LABS: POTASSIUM 6.2 MMOL/L (3.5-5.1)
[2018-03-15] MEDS ORDERED: sodium chloride inj. 154 MEQ in Dextrose 10%-water IV solution 961.5 ML IV SCH (14:50)
--- NOTE | 2018-03-15 18:20 | NUR ---
Patient in room ICU 2043. I have received report from JOHAN Adams and had the opportunity to ask questions and assume patient care. Patient family are at the bedside.
[2018-03-15] MEDS: polyethylene glycol 3350 17gm powd pack PO SCH (20:59)
[2018-03-15] MEDS: insulin glargine (Lantus) pen - multi-dose SQ SCH (21:00)
[2018-03-16] VITALS: BP 101/29
--- NOTE | 2018-03-16 00:44 | NUR ---
Family is at the bedside, his son has requested we stop all medications and proceed with comfort care. I have advised SHAMEKA Turner and he OK'd the order for comfort care.
--- NOTE | 2018-03-16 00:50 | NUR ---
Patient's family have requested patient be placed on comfort care, I have called SHAMEKA Turner and rec'd OK to place order. I will turn off all medications except Fentanyl.
[2018-03-16 01:00] VITALS: BP 80/22
--- NOTE | 2018-03-16 01:07 | NUR ---
Time of noted.
== END 2018-03-16 05:30 | disposition expired | DRG 4 ==
LOC: ER 20:17 → ED HOLD 23:04 → UNDOADMIN 23:04 → ICU 2S 23:05 → ED HOLD 02-19 00:25
PROVIDERS: ADMIT Family Medicine; ATTEND Internal Medicine Critical Care Medicine
PROC: 5A09357 Assistance with Respiratory Ventilation, Less than 24 Consecutive Hours, Continuous Positive Airway Pressure (ICD-10-PCS; 2018-02-18)
PROC: 5A1955Z Respiratory Ventilation, Greater than 96 Consecutive Hours (ICD-10-PCS; 2018-02-19)
PROC: 0BH17EZ Insertion of Endotracheal Airway into Trachea, Via Natural or Artificial Opening (ICD-10-PCS; 2018-02-19)
PROC: 0B113F4 Bypass Trachea to Cutaneous with Tracheostomy Device, Percutaneous Approach (ICD-10-PCS; principal; 2018-02-23)
PROC: 02HV33Z Insertion of Infusion Device into Superior Vena Cava, Percutaneous Approach (ICD-10-PCS; 2018-03-02)
PROC: B548ZZA Ultrasonography of Superior Vena Cava, Guidance (ICD-10-PCS; 2018-03-02)
PROC: 0W9G3ZX Drainage of Peritoneal Cavity, Percutaneous Approach, Diagnostic (ICD-10-PCS; 2018-03-03)
PROC: 0T788DZ Dilation of Bilateral Ureters with Intraluminal Device, Via Natural or Artificial Opening Endoscopic (ICD-10-PCS; 2018-03-04)
PROC: 06HY33Z Insertion of Infusion Device into Lower Vein, Percutaneous Approach (ICD-10-PCS; 2018-03-04)
PROC: B54BZZA Ultrasonography of Right Lower Extremity Veins, Guidance (ICD-10-PCS; 2018-03-04)
PROC: 0T9B80Z Drainage of Bladder with Drainage Device, Via Natural or Artificial Opening Endoscopic (ICD-10-PCS; 2018-03-04)
PROC: 5A1D90Z Performance of Urinary Filtration, Continuous, Greater than 18 hours Per Day (ICD-10-PCS; 2018-03-04)
PROC: 5A1D90Z Performance of Urinary Filtration, Continuous, Greater than 18 hours Per Day (ICD-10-PCS; 2018-03-04)
PROC: 5A1D90Z Performance of Urinary Filtration, Continuous, Greater than 18 hours Per Day (ICD-10-PCS; 2018-03-05)
PROC: 5A1D90Z Performance of Urinary Filtration, Continuous, Greater than 18 hours Per Day (ICD-10-PCS; 2018-03-06)
PROC: 30233N1 Transfusion of Nonautologous Red Blood Cells into Peripheral Vein, Percutaneous Approach (ICD-10-PCS; 2018-03-07)
PROC: 5A1D90Z Performance of Urinary Filtration, Continuous, Greater than 18 hours Per Day (ICD-10-PCS; 2018-03-07)
PROC: 5A1D90Z Performance of Urinary Filtration, Continuous, Greater than 18 hours Per Day (ICD-10-PCS; 2018-03-10)
PROC: 30233R1 Transfusion of Nonautologous Platelets into Peripheral Vein, Percutaneous Approach (ICD-10-PCS; 2018-03-11)
PROC: 5A1D90Z Performance of Urinary Filtration, Continuous, Greater than 18 hours Per Day (ICD-10-PCS; 2018-03-11)
PROC: 5A1D90Z Performance of Urinary Filtration, Continuous, Greater than 18 hours Per Day (ICD-10-PCS; 2018-03-12)
PROC: 5A1D90Z Performance of Urinary Filtration, Continuous, Greater than 18 hours Per Day (ICD-10-PCS; 2018-03-13)
PROC: 5A1D90Z Performance of Urinary Filtration, Continuous, Greater than 18 hours Per Day (ICD-10-PCS; 2018-03-14)
DX: A41.9 Sepsis, unspecified organism (principal); J96.21 Acute and chronic respiratory failure with hypoxia; R65.21 Severe sepsis with septic shock; J15.0 Pneumonia due to Klebsiella pneumoniae; J44.0 Chronic obstructive pulmonary disease with (acute) lower respiratory infection; K55.9 Vascular disorder of intestine, unspecified; N13.2 Hydronephrosis with renal and ureteral calculous obstruction; N17.9 Acute kidney failure, unspecified; R18.8 Other ascites; J61 Pneumoconiosis due to asbestos and other mineral fibers; C45.9 Mesothelioma, unspecified; D69.6 Thrombocytopenia, unspecified; E11.9 Type 2 diabetes mellitus without complications; I10 Essential (primary) hypertension; I25.10 Atherosclerotic heart disease of native coronary artery without angina pectoris; I27.20 Pulmonary hypertension, unspecified; G89.29 Other chronic pain; Z66 Do not resuscitate; Z51.5 Encounter for palliative care; Z77.090 Contact with and (suspected) exposure to asbestos; Z98.61 Coronary angioplasty status; Z99.81 Dependence on supplemental oxygen
CPT/HCPCS: 31500; 36415; 36556; 36573; 36600; 49083; 71045; 71250; 74018; 74176; 76000; 76937; 80048; 80053; 80069; 80202; 80305; 81001; 82310; 82330; 82803; 82810; 82945; 82948; 83036; 83605; 83615; 83735; 83880; 84100; 84132; 84134; 84145; 84484; 85018; 85025; 85610; 85730; 86885; 86900; 86901; 86920; 87040; 87070; 87075; 87077; 87088; 87102; 87186; 87324; 87449; 87502; 87503; 89051; 90935; 93005; 93306; 94002; 94003; 94640; 94660; 94760; 96365; 96367; 96375; 97110; 97163; 99291; 99292; A4402; A4623; A7521; C1769; C2625; C9113; G0378; J0153; J0282; J0692; J0696; J0885; J1200; J1644; J1650; J1720; J1815; J1956; J2001; J2060; J2250; J2405; J2543; J2765; J2920; J2930; J3010; J3370; J3475; J3480; J3490; J7030; J7131; J7611; P9016; P9035; P9045; P9047; Q9967